=== PATIENT | female | born 1980 | race Caucasian/White ===

== ENCOUNTER → 2017-02-23 | Outpatient (CLI) | payer BC ==
[~2017-02-23] MED LIST: IBUP-103 PO
--- NOTE | 2017-02-23 15:03 | DIAGNOSTIC IMAGING REPORT ---
RIGHT LOWER EXTREMITY VENOUS DOPPLER HISTORY: R UPPER THIGH Injury, large HEMATOMA COMPARISON STUDY: None. FINDINGS: There is normal compressibility, flow, and augmentation within the right lower extremity deep venous system. Increased echogenicity within the subcutaneous fat of the right mid thigh consistent with a soft tissue contusion. No hematoma. There are few partially thrombosed superficial varicosities at this location. IMPRESSION: No DVT within the right lower extremity. Soft tissue contusion within the right mid thigh with a few partially thrombosed superficial varicosities. Electronically signed by: Hill Goetz M.D. 02/23/2017 3:01 PM Dictated Date/Time: 02/23/2017 3:00 PM
== END | disposition home or self-care (01) ==
LOC: C.ULTR 14:28
PROVIDERS: ATTEND Nurse Practitioner
DX: S79.921A Unspecified injury of right thigh, initial encounter (principal); X58.XXXA Exposure to other specified factors, initial encounter

== ENCOUNTER 2023-12-21 16:15 | Inpatient (IN) ==
--- NOTE | 2023-12-21 16:32 | ED Triage Note ---
Date of Service December 21, 2023 Provider in Triage Author: Zayra Naylor History of Present Illness This patient was briefly evaluated while in triage. An abbreviated physical exam was performed. This patient is a 43-year-old Female who presents to the ED for evaluation of pain. She has a history of psoriatic arthritis. Over the past couple weeks she will wake up and have pain all over her joints. She then will get chest pain, SOB, and intermittent fevers. She states that the pain in her joints, chest. and back seems to be getting worse. She has been getting adjustments with minimal improvement. Physical Exam GENERAL: Non-toxic and in no acute distress. HEENT: Pupils equal. No obvious scleral icterus. HEART: Regular rate and rhythm. LUNGS: Clear to auscultation. No accessory muscle use. ABDOMEN: Soft, non-tender to palpation. NEURO: Alert and oriented. No obvious neurological deficits on quick neuro exam. Initial orders for labs and / or imaging were placed and patient was placed in the waiting area until a bed is available. Please see further documentation for the full ED course. MDM / Impression Impression Impression: Hypoxia, Pneumonia Impression: Pneumonia Qualifiers: Pneumonia type: due to unspecified organism Laterality: left Lung location: lower lobe of lung Qualified Code(s): J18.9 - Pneumonia, unspecified organism
[2023-12-21 17:14] LABS: Basophils # (auto) 0.03 K/uL (0.00-0.20); Basophils % (auto) 0.3 %; Eosinophils % (auto) 2.1 %; Hematocrit (blood only) 40.3 % (37.0-47.0); Immature Granulocytes # (auto) 0.06 K/uL (0.01-0.20); Immature Granulocytes % (auto) 0.6 %; Lymphocytes # (auto) 1.37 K/uL (1.20-3.40); Lymphocytes % (auto) 14.1 %; Mean Corpuscular Hemoglobin 27.7 pg (25.0-34.0); Mean Corpuscular Hgb Conc 32.3 g/dL (32.0-36.0); Mean Corpuscular Volume 85.7 fL (80.0-100.0); Mean Platelet Volume 9.2 fL (9.4-12.4); Monocytes # (auto) 0.37 K/uL (0.11-0.59); Monocytes % (auto) 3.8 %; Neutrophils # (auto) 7.72 K/uL (1.40-6.50); Neutrophils % (auto) 79.1 %; Platelet Count 380 K/uL (130-400); RDW Coefficient of Variation 13.3 % (11.5-14.5); RDW Standard Deviation 41.4 fL (36.4-46.3); White Blood Count 9.75 K/ul (4.8-10.8)
[2023-12-21 17:33] LABS: Alanine Aminotransferase 12 U/L (7-52); Albumin Globulin Ratio 1.3 (0.9-2); Albumin Level 4.7 gm/dl (3.4-5.0); Alkaline Phosphatase 91 U/L (34-104); Anion Gap 10 (3-11); Aspartate Aminotransferase 13 U/L (13-39); BUN Creatinine Ratio 18.3 (10-20); Bilirubin,Total 0.7 mg/dl (0.2-1.0); Blood Urea Nitrogen 13 mg/dl (6-23); Calcium 9.4 mg/dl (8.6-10.3); Carbon Dioxide 27 mmol/L (21-32); Chloride 101 mmol/L (98-107); Creatine Kinase 70 U/L (26-192); Est GFR (African American) 119.2 ml/min; Est GFR (Non-African American) 102.9 ml/min; Globulin 3.7 gm/dl (2.5-4.0); Glucose 111 mg/dl (70-99(Fasting)); Lipase 8 U/L (11-82); Magnesium 1.8 mg/dl (1.7-2.4); Sodium 138 mmol/L (136-145); Total Protein 8.4 gm/dl (6.0-8.3)
[2023-12-21 17:37] LABS: Troponin I High Sensitivity 5.2 pg/ml (0-14)
--- NOTE | 2023-12-21 17:46 | XRay Report ---
XR chest 1V portable CLINICAL HISTORY: Chest pain, nonspecific COMPARISON STUDY: Chest radiograph July 15, 2014. FINDINGS: Lung volumes are mildly diminished. Linear left basilar density is present. There may be a trace left pleural effusion. There is no pneumothorax. No right pleural effusion. There is no evidenc e for pulmonary edema. The cardiomediastinal silhouette is stable. IMPRESSION: 1. Left basilar opacity. The configuration favors atelectasis although an infectious process could ap pear similar. Radiographic follow-up to ensure resolution is recommended. 2. Possible trace left pleural effusion. ACT 112: Negative or not required by law. Electronically signed by: Judah Claudio M.D. 12/21/2023 5:45 PM
[2023-12-21 17:47] LABS: Pregnancy Test, Serum Negative (Negative)
[2023-12-21] MEDS: KETOROLAC TROMETHAMINE 15 MG/ML VIAL IV ONE (17:47)
[2023-12-21 17:50] LABS: Appearance Urine Clear (Clear); Bilirubin Urine Negative (Negative); Blood Urine Negative (Negative); Color Urine Yellow; Glucose Urine UA Negative (Negative); Ketones Urine Negative (Negative); Leukocyte Esterase Urine Negative (Negative); Nitrite Urine Negative (Negative); Protein Urine Negative (Negative); Specific Gravity Urine 1.017 (1.000-1.030); Urobilinogen Urine Negative (Negative); pH Urine 5.5 (4.5-7.5)
[2023-12-21] MEDS: SODIUM CHLORIDE 0.9% 500 ML IV STA (17:59)
[2023-12-21 18:26] LABS: Influenza A virus by PCR Negative (Neg); Influenza B virus by PCR Negative (Neg); RSV by PCR Negative (Neg); SARS CoV2 RNA(COVID-19) Ceph NEGATIVE (Negative)
[2023-12-21 20:15] LABS: Partial Thromboplastin Time 28 Seconds (21-31); Prothrombin Time 10.9 Seconds (9.0-12.0)
[2023-12-21] MEDS: MoRPHine SULFATE 4 MG/ML 1 ML CARP\\VIAL IV STA (20:41)
[2023-12-21 21:03] LABS: D Dimer 3270 ug/L FEU (0-500)
[2023-12-21] MEDS: OPTIRAY 320 125ml IV ONE (22:24)
--- NOTE | 2023-12-21 22:55 | CT Scan Report ---
Exam(s): CTA CHEST IV Amt: 119 ml optiray 320 EXAM: CT Angiography Chest With Intravenous Contrast CLINICAL HISTORY: Reason for exam: ro PE. TECHNIQUE: Axial computed tomographic angiography images of the chest with intravenous contrast. Automated exposure control was utilized for the study. A dose lowering technique was utilized adhering to the principles of ALARA. MIP reconstructed images were created and reviewed. COMPARISON: No relevant prior studies available. FINDINGS: Pulmonary arteries: Unremarkable. No pulmonary embolism. Aorta: No acute findings. No thoracic aortic aneurysm. Lungs: Consolidations at the lung bases, concerning for pneumonia. Trace LEFT parapneumonic effusion. Pleural space: Unremarkable. No significant effusion. No pneumothorax. Heart: Unremarkable. No cardiomegaly. No significant pericardial effusion. No evidence of RV dysfunction. Bones/joints: No acute fracture. No dislocation. Soft tissues: Unremarkable. Lymph nodes: Unremarkable. No enlarged lymph nodes. IMPRESSION: Consolidations at the lung bases, concerning for pneumonia. Trace LEFT parapneumonic effusion. Electronically signed by: Remy Bueno MD 12/21/23 22:54 PM
[2023-12-21] MEDS ORDERED: PROMETHAZINE HCL 12.5 MG in SODIUM CHLORIDE 0.9% 50 ML IV PRN (23:47)
--- NOTE | 2023-12-21 23:47 | Emergency Department Note ---
History of Present Illness General Chief complaint: Swelling/Edema to Extremity Stated complaint: SWELLING IN LEGS/FEET/HANDS/ARMS Time Seen by Provider: 12/21/23 20:05 History of Present Illness Provider complaint: Left shoulder and chest pain Maximum Pain Intensity: 9 43-year-old female presents emergency department for left shoulder and left chest pain. Patient states her symptoms began today. She reports she has a history of psoriatic arthritis and that her pain is extreme. She denies any fevers. She states the pain is worse when she takes a deep breath. She does report a cough. Home Medications Medication Instructions Recorded Confirmed Type guselkumab 100 mg/mL subcutaneous 100 mg subcut .COMPLEX #1 mL 07/03/23 12/21/23 Rx syringe (Tremfya) semaglutide 0.25 mg or 0.5 mg (2 1 mg subcut WK 07/03/23 12/21/23 History mg/3 mL) subcutaneous pen injector (Ozempic) colchicine 0.6 mg capsule 0.6 mg PO DAILY 07/05/23 12/21/23 History desonide 0.05 % topical ointment 1 applic topical .COMPLEX 07/05/23 12/21/23 History etodolac 400 mg tablet 400 mg PO BID #60 tabs 12/05/23 12/21/23 Rx Allergies Allergy/AdvReac Type Severity Reaction Status Date / Time Sulfa (Sulfonamide Allergy Unknown Rash Verified 11/16/23 11:50 Antibiotics) Past Med/Surg History Medical History History of COVID-19 10/2021- no hosp, resolved Psoriatic arthritis Obesity, morbid, BMI 40.0-49.9 on ozempic weekly Pseudotumor cerebri monitored Fatty liver Surgical History S/P cholecystectomy S/P tubal ligation History of section X 2 History of wisdom tooth extraction Family History Grandfather (Paternal) Colorectal cancer, Onset Age: 63 Mother Breast cancer Grandmother (Maternal) Breast cancer Aunt Breast cancer multiple maternal aunts Denies family history of Ovarian cancer Uterine cancer Social History Smoking Status: Former smoker Tobacco Type: Cigarettes Second Hand Exposure: Yes ( A CHILD); Do You Dip or Chew Tobacco: No; Hx Alcohol Use: Yes (1-2 per week) Alcohol type: beer Hx Substance Use: No Preferred Language: Latvian Communication Ability: Effective Visual Impairment: No Limitations Clinical Team Manager Required: No Beliefs That Will Affect Care: None Current Living Situation: Spouse Current Living Situation Comment: AND CHILDREN Feels Safe at Home: Yes Assistive Devices: Glasses Physical Exam Vital Signs Vital Signs - 24 hr 12/21/23 16:27 12/21/23 19:21 12/21/23 20:46 Temperature 37 C Temperature Source Temporal Artery Scan Pulse Rate 87 86 Pulse Rate [Finger] 87 Pulse Rate from SpO2 Sensor Respiratory Rate 18 18 18 Respiratory Effort / Characteristics Non-Labored Spontaneous Non-Labored Respiratory Depth Normal Normal Respiratory Pattern Regular Blood Pressure 172/84 H Blood Pressure [Right Arm] 127/82 Blood Pressure Mean 113 Blood Pressure Mean [Right Arm] 97 Pulse Oximetry 97 96 100 Oxygen Delivery Method Room Air Room Air Room Air Oxygen Flow Rate Sepsis Recent Fever Within 48 Hours Yes Sepsis New/Unexplained Change in Mental Status N/A Sepsis Action Taken by Nursing No Action Required 12/21/23 20:51 12/21/23 21:35 12/21/23 21:38 Temperature Temperature Source Pulse Rate Pulse Rate [Finger] Pulse Rate from SpO2 Sensor Respiratory Rate 16 Respiratory Effort / Characteristics Non-Labored Spontaneous Respiratory Depth Normal Respiratory Pattern Blood Pressure Blood Pressure [Right Arm] 109/78 Blood Pressure Mean Blood Pressure Mean [Right Arm] 88 Pulse Oximetry 89 L 97 Oxygen Delivery Method Room Air Nasal Cannula Oxygen Flow Rate 2 Sepsis Recent Fever Within 48 Hours Sepsis New/Unexplained Change in Mental Status Sepsis Action Taken by Nursing 12/21/23 22:37 12/21/23 23:00 Temperature Temperature Source Pulse Rate 78 77 Pulse Rate [Finger] Pulse Rate from SpO2 Sensor 78 78 Respiratory Rate 23 24 Respiratory Effort / Characteristics Respiratory Depth Respiratory Pattern Blood Pressure 121/82 146/79 H Blood Pressure [Right Arm] Blood Pressure Mean 95 101 Blood Pressure Mean [Right Arm] Pulse Oximetry 95 94 Oxygen Delivery Method Oxygen Flow Rate Sepsis Recent Fever Within 48 Hours Sepsis New/Unexplained Change in Mental Status Sepsis Action Taken by Nursing Physical Exam GENERAL: oriented to person, place, and time. appears well-developed and well- nourished. HENT: Exam performed. - Head: Normocephalic and atraumatic. EYES: Conjunctivae and EOM are normal. Right eye exhibits no discharge. Left eye exhibits no discharge. No scleral icterus. NECK: Normal range of motion. Neck supple. No JVD present. CV: Normal rate, regular rhythm, normal heart sounds and intact distal pulses. There is no peripheral edema. Palpable radial pulses bue. PULM/CHEST: Effort normal and breath sounds normal. No respiratory distress. No stridor. no wheezes. no rales. ABD: The abdomen is soft. There is no tenderness. NEURO: Motor and sensation grossly intact. SKIN: Skin is warm and dry. He is not diaphoretic. PSYCH: normal mood and affect. Behavior is normal. Judgment and thought content normal. Course Course 2004: The patient was evaluated in room C8. A complete history and physical exam was performed Cardiac monitoring: An order was placed for continuous cardiac monitoring. The monitor shows a rate of 80 with sinus rhythm interpreted by me 2106: Vital signs stable. D-dimer elevated. CT of the chest ordered. 2140: Nursing informed me that the patient is becoming hypoxic on room air. Supplemental oxygen was applied via nasal cannula which improved the patient oxygen saturation. 2315: Vital signs stable on supplemental oxygen via nasal cannula. Labs are unremarkable with the exception of the elevated D-dimer. Imaging does show left-sided pneumonia. Patient will be treated with antibiotics for community- acquired pneumonia [facility] aware of the patient and will evaluate the patient for admission. Administered Medications Discontinued Medications Sodium Chloride (Nss) 500 mls @ 999 mls/hr IV .Q31M STA Stop: 12/21/23 17:02 Last Admin: 12/21/23 17:59 Dose: Not Given Documented By: NURIS Ioversol (Optiray 320 125ml) 119 ml IV ONCE ONE Stop: 12/21/23 22:25 Last Admin: 12/21/23 22:24 Dose: 119 ml Documented By: CANDELARIA Ketorolac Tromethamine (Ketorolac Tromethamine 15 Mg/Ml Vial) 10 mg IV NOW ONE Stop: 12/21/23 16:33 Last Admin: 12/21/23 17:47 Dose: 10 mg Documented By: CORINNE Morphine Sulfate (Morphine Sulfate 4 Mg/Ml 1 Ml Carp\Vial) 4 mg IV NOW STA Stop: 12/21/23 20:29 Last Admin: 12/21/23 20:41 Dose: 4 mg Documented By: CYNTHIA Critical Care Time Critical Care Time: Yes Total Critical Care Time: 45 I have personally spent greater than 45 minutes of critical care time in the direct management of this patient. This includes bedside care, interpretation of diagnostic studies, and testing, discussion with consultants, patient, and family members, and other required patient management activities. This 45 minutes is in excess of all separately billable procedures. Medical Decision Making Laboratory Data Attestation: I reviewed the patient's lab results. 12/21/23 16:46 12/21/23 16:46 Lab Results 12/21/23 12/21/23 12/21/23 Range/Units 16:46 16:57 19:50 WBC 9.75 (4.8-10.8) K/ul RBC 4.70 (4.20-5.40) M/uL Hgb 13.0 (12.0-16.0) g/dl Hct 40.3 (37.0-47.0) % MCV 85.7 (80.0-100.0) fL MCH 27.7 (25.0-34.0) pg MCHC 32.3 (32.0-36.0) g/dL RDW Std Deviation 41.4 (36.4-46.3) fL RDW Coeff of Tangela 13.3 (11.5-14.5) % Plt Count 380 (130-400) K/uL MPV 9.2 L (9.4-12.4) fL Immature Gran % (Auto) 0.6 % Neut % (Auto) 79.1 % Lymph % (Auto) 14.1 % [place] % (Auto) 3.8 % Eos % (Auto) 2.1 % Baso % (Auto) 0.3 % Neut # (Auto) 7.72 H (1.40-6.50) K/uL Lymph # (Auto) 1.37 (1.20-3.40) K/uL [place] # (Auto) 0.37 (0.11-0.59) K/uL Eos # (Auto) 0.20 (0.00-0.50) K/uL Baso # (Auto) 0.03 (0.00-0.20) K/uL Immature Gran # (Auto) 0.06 (0.01-0.20) K/uL PT Cancelled 10.9 INR Cancelled 1.0 APTT Cancelled 28 PTT Ratio Cancelled 1.0 D-Dimer Cancelled 3270 H* Sodium 138 (136-145) mmol/L Potassium 4.0 (3.5-5.1) mmol/L Chloride 101 (98-107) mmol/L Carbon Dioxide 27 (21-32) mmol/L Anion Gap 10 (3-11) BUN 13 (6-23) mg/dl Creatinine 0.71 (0.6-1.2) mg/dl Est Cr Clr Drug Dosing Not Reportable Est GFR ( Amer) 119.2 ml/min Est GFR (Non-Af Amer) 102.9 ml/min BUN/Creatinine Ratio 18.3 (10-20) Glucose 111 H (70-99(Fasting)) mg/dl Calcium 9.4 (8.6-10.3) mg/dl Magnesium 1.8 (1.7-2.4) mg/dl Total Bilirubin 0.7 (0.2-1.0) mg/dl AST 13 (13-39) U/L ALT 12 (7-52) U/L Alkaline Phosphatase 91 (34-104) U/L Total Creatine Kinase 70 (26-192) U/L Troponin I High Sens 5.2 (0-14) pg/ml Total Protein 8.4 H (6.0-8.3) gm/dl Albumin 4.7 (3.4-5.0) gm/dl Globulin 3.7 (2.5-4.0) gm/dl Albumin/Globulin Ratio 1.3 (0.9-2) Lipase 8 L (11-82) U/L HCG, Qual Negative (Negative) Urine Color Urine Appearance (Clear) Urine pH (4.5-7.5) Ur Specific Schneider (1.000-1.030) Urine Protein (Negative) Urine Glucose (UA) (Negative) Urine Ketones (Negative) Urine Blood (Negative) Urine Nitrite (Negative) Urine Bilirubin (Negative) Urine Urobilinogen (Negative) Ur Leukocyte Esterase (Negative) Anaplasma Smear See Comment Babesia Smear See Comment Lyme Disease Screen Negative (Negative) SARS-CoV-2 (PCR) NEGATIVE (Negative) Influenza Type A (PCR) Negative (Neg) Influenza Type B (PCR) Negative (Neg) RSV (RT-PCR) Negative (Neg) 12/21/23 Range/Units Unknown WBC (4.8-10.8) K/ul RBC (4.20-5.40) M/uL Hgb (12.0-16.0) g/dl Hct (37.0-47.0) % MCV (80.0-100.0) fL MCH (25.0-34.0) pg MCHC (32.0-36.0) g/dL RDW Std Deviation (36.4-46.3) fL RDW Coeff of Tangela (11.5-14.5) % Plt Count (130-400) K/uL MPV (9.4-12.4) fL Immature Gran % (Auto) % Neut % (Auto) % Lymph % (Auto) % [place] % (Auto) % Eos % (Auto) % Baso % (Auto) % Neut # (Auto) (1.40-6.50) K/uL Lymph # (Auto) (1.20-3.40) K/uL [place] # (Auto) (0.11-0.59) K/uL Eos # (Auto) (0.00-0.50) K/uL Baso # (Auto) (0.00-0.20) K/uL Immature Gran # (Auto) (0.01-0.20) K/uL PT INR APTT PTT Ratio D-Dimer Sodium (136-145) mmol/L Potassium (3.5-5.1) mmol/L Chloride (98-107) mmol/L Carbon Dioxide (21-32) mmol/L Anion Gap (3-11) BUN (6-23) mg/dl Creatinine (0.6-1.2) mg/dl Est Cr Clr Drug Dosing Est GFR ( Amer) ml/min Est GFR (Non-Af Amer) ml/min BUN/Creatinine Ratio (10-20) Glucose (70-99(Fasting)) mg/dl Calcium (8.6-10.3) mg/dl Magnesium (1.7-2.4) mg/dl Total Bilirubin (0.2-1.0) mg/dl AST (13-39) U/L ALT (7-52) U/L Alkaline Phosphatase (34-104) U/L Total Creatine Kinase (26-192) U/L Troponin I High Sens (0-14) pg/ml Total Protein (6.0-8.3) gm/dl Albumin (3.4-5.0) gm/dl Globulin (2.5-4.0) gm/dl Albumin/Globulin Ratio (0.9-2) Lipase (11-82) U/L HCG, Qual (Negative) Urine Color Yellow Urine Appearance Clear (Clear) Urine pH 5.5 (4.5-7.5) Ur Specific Schneider 1.017 (1.000-1.030) Urine Protein Negative (Negative) Urine Glucose (UA) Negative (Negative) Urine Ketones Negative (Negative) Urine Blood Negative (Negative) Urine Nitrite Negative (Negative) Urine Bilirubin Negative (Negative) Urine Urobilinogen Negative (Negative) Ur Leukocyte Esterase Negative (Negative) Anaplasma Smear Babesia Smear Lyme Disease Screen (Negative) SARS-CoV-2 (PCR) (Negative) Influenza Type A (PCR) (Neg) Influenza Type B (PCR) (Neg) RSV (RT-PCR) (Neg) Imaging Data Attestation: I personally reviewed and interpreted this imaging study as follows: My Impression: Chest x-ray: Left lower lobe infiltrate Radiologist's Impression: Chest X-Ray 12/21/23 16:32 XR chest 1V portable CLINICAL HISTORY: Chest pain, nonspecific COMPARISON STUDY: Chest radiograph July 15, 2014. FINDINGS: Lung volumes are mildly diminished. Linear left basilar density is present. There may be a trace left pleural effusion. There is no pneumothorax. No right pleural effusion. There is no evidence for pulmonary edema. The cardiomediastinal silhouette is stable. IMPRESSION: 1. Left basilar opacity. The configuration favors atelectasis although an infectious process could appear similar. Radiographic follow-up to ensure resolution is recommended. 2. Possible trace left pleural effusion. ACT 112: Negative or not required by law. Electronically signed by: Judah Caludio M.D. 12/21/2023 5:45 PM Chest CTA 12/21/23 21:06 Exam(s): CTA CHEST IV Amt: 119 ml optiray 320 EXAM: CT Angiography Chest With Intravenous Contrast CLINICAL HISTORY: Reason for exam: ro PE. TECHNIQUE: Axial computed tomographic angiography images of the chest with intravenous contrast. Automated exposure control was utilized for the study. A dose lowering technique was utilized adhering to the principles of ALARA. MIP reconstructed images were created and reviewed. COMPARISON: No relevant prior studies available. FINDINGS: Pulmonary arteries: Unremarkable. No pulmonary embolism. Aorta: No acute findings. No thoracic aortic aneurysm. Lungs: Consolidations at the lung bases, concerning for pneumonia. Trace LEFT parapneumonic effusion. Pleural space: Unremarkable. No significant effusion. No pneumothorax. Heart: Unremarkable. No cardiomegaly. No significant pericardial effusion. No evidence of RV dysfunction. Bones/joints: No acute fracture. No dislocation. Soft tissues: Unremarkable. Lymph nodes: Unremarkable. No enlarged lymph nodes. IMPRESSION: Consolidations at the lung bases, concerning for pneumonia. Trace LEFT parapneumonic effusion. Electronically signed by: Remy Bueno MD 12/21/23 22:54 PM ECG Data Attestation: I personally reviewed and interpreted this ECG as follows: Rate (beats per minute): 78 Rhythm: + normal sinus ECG Intervals/blocks: + Normal MD and + Normal QT-c ECG ST segments: + Normal ST segments Additional Comments: QRS 78 MDM Narrative 2005: The patient was evaluated in room C8. A complete history and physical exam was performed Cardiac monitoring: An order was placed for continuous cardiac monitoring. The monitor shows a rate of 80 with sinus rhythm interpreted by me 2106: Vital signs stable. D-dimer elevated. CT of the chest ordered. 2140: Nursing informed me that the patient is becoming hypoxic on room air. Supplemental oxygen was applied via nasal cannula which improved the patient oxygen saturation. 2315: Vital signs stable on supplemental oxygen via nasal cannula. Labs are unremarkable with the exception of the elevated D-dimer. Imaging does show left-sided pneumonia. Patient will be treated with antibiotics for community- acquired pneumonia [facility] aware of the patient and will evaluate the patient for admission. Impression & Plan Hypoxia, Pneumonia Discharge Plan Visit Data Chief Complaint: Swelling/Edema to Extremity Stated Complaint: SWELLING IN LEGS/FEET/HANDS/ARMS ED Provider: Felix Lund Discharge Problem: Hypoxia, Pneumonia Patient Disposition: Admitted As Inpatient Forms Stand Alone Forms: [facility] Prescriptions Prescriptions: No Action etodolac 400 mg tablet 400 mg PO BID Qty: 60 2RF colchicine 0.6 mg capsule 0.6 mg PO DAILY desonide 0.05 % ointment 1 applic topical .COMPLEX Rx Instructions: 1 applic topical to areas of face twice daily x 1 week, then once daily x 1 week as directed for flaring. Ozempic 0.25 mg or 0.5 mg (2 mg/3 mL) pen injector 1 mg subcut WK Patient Comments: monday Rx Instructions: Patient states she takes this on Fridays Tremfya 100 mg/mL syringe 100 mg subcut .COMPLEX Qty: 1 2RF Rx Instructions: 100 mg subcutaneously every 8 weeks for maintenance as directed.; Last Dose: November/2023 Referrals Referrals: Usama Block MD [Primary Care Provider] - Discharge Problem: Pneumonia Qualifiers: Pneumonia type: due to unspecified organism Laterality: left Lung location: l ower lobe of lung Qualified Code(s): J18.9 - Pneumonia, unspecified organism
--- NOTE | 2023-12-21 23:51 | History & Physical Report ---
Date of Service December 21, 2023 Assessment & Plan (1) Acute hypoxemic respiratory failure: Plan: Secondary to complicated pneumonia Atypical presentation given predominance of constitutional symptoms Immunocompromised patient given history of psoriatic arthritis psoriatic arthritis on Tremfya hx pseudotumor cerebri, stable off maintenance medications Hyperglycemia rule out DM past tobacco abuse. Medical telemetry Supplemental O2 Baseline ABG CS, Ceftriaxone and azithromycin Pulmonology consult eval improvement Re: Complicated pneumonia Check hemoglobin A1c DVT prophylaxis per Lovenox subcu Full code Text document was generated using [employer] voice recognition software. It may contain grammatical or spelling errors. Kindly contact undersigned for clarification of any documentation item in question. History of Present Illness Chief Complaint: Achy, shortness of breath Primary Care Provider: Usama Block MD History obtained from patient, family, and records. Medical history significant for psoriatic arthritis on Tremfya, pseudotumor cerebri, obesity on Ozempic, past tobacco abuse. 2 weeks history of generalized weakness and achiness. No cough symptoms. Shortness of breath with achy chest pain. Not sure about sick contacts. Fluid retention which patient attributes to psoriatic arthritis. Denies headache symptoms. No recent COVID-19 vaccination. Lowest O2 sats of 80s documented at the ER. Ceftriaxone and azithromycin administered at the ER. 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 Allergies Allergy/AdvReac Type Severity Reaction Status Date / Time Sulfa (Sulfonamide Allergy Unknown Rash Verified 11/16/23 11:50 Antibiotics) Home Medications Medication Instructions Recorded Confirmed Type guselkumab 100 mg/mL subcutaneous 100 mg subcut .COMPLEX #1 mL 07/03/23 12/21/23 Rx syringe (Tremfya) semaglutide 0.25 mg or 0.5 mg (2 1 mg subcut WK 07/03/23 12/21/23 History mg/3 mL) subcutaneous pen injector (Ozempic) colchicine 0.6 mg capsule 0.6 mg PO DAILY 07/05/23 12/21/23 History desonide 0.05 % topical ointment 1 applic topical .COMPLEX 07/05/23 12/21/23 History etodolac 400 mg tablet 400 mg PO BID #60 tabs 12/05/23 12/21/23 Rx Past Med/Surg History Medical History History of COVID-19 10/2021- no hosp, resolved Psoriatic arthritis Obesity, morbid, BMI 40.0-49.9 on ozempic weekly Pseudotumor cerebri monitored Fatty liver Surgical History S/P cholecystectomy S/P tubal ligation History of section X 2 History of wisdom tooth extraction Family History Grandfather (Paternal) Colorectal cancer, Onset Age: 63 Mother Breast cancer Grandmother (Maternal) Breast cancer Aunt Breast cancer multiple maternal aunts Denies family history of Ovarian cancer Uterine cancer Social History Smoking Status: Former smoker Tobacco Type: Cigarettes Second Hand Exposure: Yes ( A CHILD); Do You Dip or Chew Tobacco: No; Hx Alcohol Use: Yes (1-2 per week) Alcohol type: beer Hx Substance Use: No Preferred Language: [place] Communication Ability: Effective Visual Impairment: No Limitations 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 Beliefs That Will Affect Care: None Current Living Situation: Spouse Current Living Situation Comment: AND CHILDREN Feels Safe at Home: Yes Assistive Devices: Glasses Review of Systems Review of Systems: As per HPI, all other systems reviewed and negative Physical Exam Physical Exam: GENERAL: Slightly uncomfortable, ill-appearing, morbidly obese, looks older than stated age, no respiratory distress SKIN: Normal color, warm HEENT: [place] palpebral conjunctivae, no ptosis, dry buccal mucosa, nasal cannula in place NECK : Supple, short neck, no tenderness CHEST : Decreased breath sounds, no tenderness HEART : RRR, no obvious murmurs ABDOMEN: Some distention, nontender EXTREMITIES : Minimal LE swelling, no LE tenderness, no other conspicuous deformities noted NEUROLOGIC : Coherent, no facial asymmetry, no other gross focality Results & Data Results & Data Vital Signs (Past 12 Hours) Vital Signs Temp Pulse Pulse Resp BP BP Pulse Ox 12/21/23 23:00 77 24 146/79 H 94 12/21/23 22:37 78 23 121/82 95 12/21/23 21:38 97 12/21/23 21:35 16 89 L 12/21/23 20:51 109/78 12/21/23 20:46 86 18 100 12/21/23 19:21 87 18 127/82 96 12/21/23 16:27 37 C 87 18 172/84 H 97 O2 Del Method O2 Flow Rate 12/21/23 23:00 12/21/23 22:37 12/21/23 21:38 Nasal Cannula 2 12/21/23 21:35 Room Air 12/21/23 20:51 12/21/23 20:46 Room Air 12/21/23 19:21 Room Air 12/21/23 16:27 Room Air Laboratory Results Laboratory Results WBC 9.75 K/ul (4.8-10.8) 12/21/23 16:46 RBC 4.70 M/uL (4.20-5.40) 12/21/23 16:46 Hgb 13.0 g/dl (12.0-16.0) 12/21/23 16:46 Hct 40.3 % (37.0-47.0) 12/21/23 16:46 MCV 85.7 fL (80.0-100.0) 12/21/23 16:46 MCH 27.7 pg (25.0-34.0) 12/21/23 16:46 MCHC 32.3 g/dL (32.0-36.0) 12/21/23 16:46 RDW Std Deviation 41.4 fL (36.4-46.3) 12/21/23 16:46 RDW Coeff of [place]ela 13.3 % (11.5-14.5) 12/21/23 16:46 Plt Count 380 K/uL (130-400) 12/21/23 16:46 MPV 9.2 fL (9.4-12.4) L 12/21/23 16:46 Immature Gran % (Auto) 0.6 % 12/21/23 16:46 Neut % (Auto) 79.1 % 12/21/23 16:46 Lymph % (Auto) 14.1 % 12/21/23 16:46 [place] % (Auto) 3.8 % 12/21/23 16:46 Eos % (Auto) 2.1 % 12/21/23 16:46 Baso % (Auto) 0.3 % 12/21/23 16:46 Neut # (Auto) 7.72 K/uL (1.40-6.50) H 12/21/23 16:46 Lymph # (Auto) 1.37 K/uL (1.20-3.40) 12/21/23 16:46 [place] # (Auto) 0.37 K/uL (0.11-0.59) 12/21/23 16:46 Eos # (Auto) 0.20 K/uL (0.00-0.50) 12/21/23 16:46 Baso # (Auto) 0.03 K/uL (0.00-0.20) 12/21/23 16:46 Immature Gran # (Auto) 0.06 K/uL (0.01-0.20) 12/21/23 16:46 PT 10.9 Seconds (9.0-12.0) 12/21/23 19:50 INR 1.0 (0.9-1.1) 12/21/23 19:50 APTT 28 Seconds (21-31) 12/21/23 19:50 PTT Ratio 1.0 12/21/23 19:50 D-Dimer 3270 ug/L FEU (0-500) H* 12/21/23 19:50 Sodium 138 mmol/L (136-145) 12/21/23 16:46 Potassium 4.0 mmol/L (3.5-5.1) 12/21/23 16:46 Chloride 101 mmol/L (98-107) 12/21/23 16:46 Carbon Dioxide 27 mmol/L (21-32) 12/21/23 16:46 Anion Gap 10 (3-11) 12/21/23 16:46 BUN 13 mg/dl (6-23) 12/21/23 16:46 Creatinine 0.71 mg/dl (0.6-1.2) 12/21/23 16:46 Est Cr Clr Drug Dosing Not Reportable 12/21/23 16:46 Est GFR ( Amer) 119.2 ml/min 12/21/23 16:46 Est GFR (Non-Af Amer) 102.9 ml/min 12/21/23 16:46 BUN/Creatinine Ratio 18.3 (10-20) 12/21/23 16:46 Glucose 111 mg/dl (70-99(Fasting)) H 12/21/23 16:46 Calcium 9.4 mg/dl (8.6-10.3) 12/21/23 16:46 Magnesium 1.8 mg/dl (1.7-2.4) 12/21/23 16:46 Total Bilirubin 0.7 mg/dl (0.2-1.0) 12/21/23 16:46 AST 13 U/L (13-39) 12/21/23 16:46 ALT 12 U/L (7-52) 12/21/23 16:46 Alkaline Phosphatase 91 U/L (34-104) 12/21/23 16:46 Total Creatine Kinase 70 U/L (26-192) 12/21/23 16:46 Troponin I High Sens 5.2 pg/ml (0-14) 12/21/23 16:46 Total Protein 8.4 gm/dl (6.0-8.3) H 12/21/23 16:46 Albumin 4.7 gm/dl (3.4-5.0) 12/21/23 16:46 Globulin 3.7 gm/dl (2.5-4.0) 12/21/23 16:46 Albumin/Globulin Ratio 1.3 (0.9-2) 12/21/23 16:46 Lipase 8 U/L (11-82) L 12/21/23 16:46 HCG, Qual Negative (Negative) 12/21/23 16:46 Urine Color Yellow 12/21/23 Unknown Urine Appearance Clear (Clear) 12/21/23 Unknown Urine pH 5.5 (4.5-7.5) 12/21/23 Unknown Ur Specific [place] 1.017 (1.000-1.030) 12/21/23 Unknown Urine Protein Negative (Negative) 12/21/23 Unknown Urine Glucose (UA) Negative (Negative) 12/21/23 Unknown Urine Ketones Negative (Negative) 12/21/23 Unknown Urine Blood Negative (Negative) 12/21/23 Unknown Urine Nitrite Negative (Negative) 12/21/23 Unknown Urine Bilirubin Negative (Negative) 12/21/23 Unknown Urine Urobilinogen Negative (Negative) 12/21/23 Unknown Ur Leukocyte Esterase Negative (Negative) 12/21/23 Unknown Anaplasma Smear See Comment 12/21/23 16:46 Babesia Smear See Comment 12/21/23 16:46 Lyme Disease Screen Negative (Negative) 12/21/23 16:46 SARS-CoV-2 (PCR) NEGATIVE (Negative) 12/21/23 16:57 Influenza Type A (PCR) Negative (Neg) 12/21/23 16:57 Influenza Type B (PCR) Negative (Neg) 12/21/23 16:57 RSV (RT-PCR) Negative (Neg) 12/21/23 16:57 Impressions Chest X-Ray 12/21/23 16:32 XR chest 1V portable CLINICAL HISTORY: Chest pain, nonspecific COMPARISON STUDY: Chest radiograph July 15, 2014. FINDINGS: Lung volumes are mildly diminished. Linear left basilar density is present. There may be a trace left pleural effusion. There is no pneumothorax. No right pleural effusion. There is no evidence for pulmonary edema. The cardiomediastinal silhouette is stable. IMPRESSION: 1. Left basilar opacity. The configuration favors atelectasis although an infectious process could appear similar. Radiographic follow-up to ensure resolution is recommended. 2. Possible trace left pleural effusion. ACT 112: Negative or not required by law. Electronically signed by: Judah Claudio M.D. 12/21/2023 5:45 PM Chest CTA 12/21/23 21:06 Exam(s): CTA CHEST IV Amt: 119 ml optiray 320 EXAM: CT Angiography Chest With Intravenous Contrast CLINICAL HISTORY: Reason for exam: ro PE. TECHNIQUE: Axial computed tomographic angiography images of the chest with intravenous contrast. Automated exposure control was utilized for the study. A dose lowering technique was utilized adhering to the principles of ALARA. MIP reconstructed images were created and reviewed. COMPARISON: No relevant prior studies available. FINDINGS: Pulmonary arteries: Unremarkable. No pulmonary embolism. Aorta: No acute findings. No thoracic aortic aneurysm. Lungs: Consolidations at the lung bases, concerning for pneumonia. Trace LEFT parapneumonic effusion. Pleural space: Unremarkable. No significant effusion. No pneumothorax. Heart: Unremarkable. No cardiomegaly. No significant pericardial effusion. No evidence of RV dysfunction. Bones/joints: No acute fracture. No dislocation. Soft tissues: Unremarkable. Lymph nodes: Unremarkable. No enlarged lymph nodes. IMPRESSION: Consolidations at the lung bases, concerning for pneumonia. Trace LEFT parapneumonic effusion. Electronically signed by: Remy Bueno MD 12/21/23 22:54 PM Diagnostic Findings EKG as per my interpretation : Rate 80, NSR, normal axis, nonspecific T wave abnormalities Code Status & VTE Plan VTE Prophylaxis Plan VTE Prophylaxis will be ordered: Yes
[2023-12-22] MEDS: AZITHROMYCIN 250 MG TAB PO ONE (00:10)
[2023-12-22] MEDS: cefTRIAXone SODIUM 2,000 MG/50 ML BAG IV STA (00:10)
[2023-12-22] MEDS: ALBUT/IPRATROP 3MG/0.5MG NEB 3 ML VIAL NEB STA (00:10)
[2023-12-22 00:41] LABS: Base Excess ABG -0.1 mEq/L (-9-1.8); HCO3 ABG 24 mmol/L (19-24); Oxygen Saturation ABG 96.8 % (90-95); PCO2 ABG 36 mmHg (35-46); PO2 ABG 73 mmHg (80-95); pH ABG 7.43 (7.35-7.45)
[2023-12-22] MEDS: MAGNESIUM SULFATE / D5W 1 GM/100 ML BAG IV STA (00:45)
[2023-12-22 00:48] LABS: Allen Test Pos (Pos)
[2023-12-22] MEDS: oxyCODONE HCL IR 5 MG TAB (IMMEDIATE RELEASE) PO PRN ×2 (01:22→12:27)
[2023-12-22] MEDS: KETOROLAC TROMETHAMINE 15 MG/ML VIAL IV ONE (04:42)
[2023-12-22] MEDS: LIDOCAINE 5% 1 PATCH TD SCH (04:42)
--- OUTSIDE RECORDS SUMMARY | 2023-12-22 06:30 | External Medical Summary | Summary of Care ---
Author Name Unknown Organization [facility] Address [address] [place] [address] Phone [phone] Care Team Providers Care Automatic Presser Name Role Phone Usama Block MD Primary Care Provider + Encounter Details Date Type Department Care Team (Late st Contact Info) Description 12/21/2023 8:00 AM EST Nurse Only Ancillary [facility] [address] [place] [address] Nurse, Int Med [address] [place] [address] Arrived Allergies Active Allergy Reactions Criticality Noted Date Comments Sulfa Antibiotics 01/17/2003 leg cramps,rash as a child documented as of this encounter (statuses as of 12/21/2023) Medications Medication Sig Dispensed Refills Start Date End Date Status PROBIOTIC PO CAPS 1 tablet daily 0 Act abdirashid Loratadine 10 MG Oral Tablet Take 1 Tablet by mouth in the morning. 30 Tab 11 04/14/2020 Active Tremfya 100 MG/ML Subcutaneous Solution Pen-injector every 8 weeks. Last shot was 11/18/22. 0 04/19/2022 Active Mometasone Furoate 50 MCG/ACT Nasal SuspensionIndication s:Acute non-recurrent maxillary sinusitis Administer 2 Sprays into nostril in the morning. 18 g 0 10/29/2022 Active Meloxicam 7.5 MG Oral Tablet (Mobic)Indications:P olyarthralgia Take 1 Tablet by mouth daily as needed for Pain, Severe. With food 90 Tablet 3 03/14/2023 Active Allopurinol 100 MG Oral Tablet (Zyloprim)Indication s:Elevated uric acid in blood Take 1 Tablet by mouth in the morning. 30 Tablet 11 06/21/2023 Active Colchicine 0.6 MG Oral TabletIndications:El evated uric acid in blood Take 1 Tablet by mouth in the morning. 30 Tablet 5 06/21/2023 Active Ozempic (1 MG/DOSE) 4 MG/3ML Subcutaneous Solution Pen-injector (Semaglutide (1 MG/DOSE)) Inject 1 mg under the skin once a week. 9 mL 0 09/05/2023 Active documented as of this encounter (statuses as of 12/21/2023) Active Problems Problem Noted Date Diagnosed Date Plaque psoriasis 03/14/2023 Obesity, morbid (more than 1 00 lbs over ideal weight or BMI > 40) 03/19/2019 Enlarged adenoids 03/19/2019 Deviated nasal septum 02/04/2019 Hypertrophy of both inferior nasal turbinates Pseudotumor cerebri Overview: followed by Dr Bernabe Papilledema Overview: followed by Dr Frantz Lema documented as of this encounter (statuses as of 12/21/2023) Resolved Problems Problem Noted Date Diagnosed Date Resolved Date Adenoidal hypertrophy 02/04/20192018 Acute serous otitis media of right ear 02/04/2019 03/19/2019 Acute sinusitis 02/04/2019 03/19/2019 Body mass index (BMI) of 45. 0 to 49.9 in adult 08/14/2017 03/19/2019 Overview: Per Obesity protocol #1 Carrier or suspected carrier of group B Streptococcus 12/31/2009 01/18/2010 Overview: + GBS -- tx in labor ADVANCE DIRECTIVE INFORMATION 06/30/2009 03/19/2019 Overview: No, Advance Directive brochure offered , patient declined. Supervision of other high-risk 06/15/2009 01/18/2010 Overview: M consult ordered re: h/o pseudotumor cerebri and papilledema for further recommendations- M recommendations:Repeat evaluation in 7-8 weeks for second trimester screening sonography and recommend quad serum screening between 15-22 wks gestation (pt declines). Patient received flu vaccine. 08/13/2009 Julia Brown RN Patient received H1N1 vaccine. 09/11/2009 Dayanara Mancilla RN ICD-10 update of inactive term Normal , first 12/09/200301/2009 NONE 11/11/2003 05/29/2009 Encounter for supervision of other normal 11/11/2003 06/15/2009 Overview: ICD-10 update of inactive term documented as of this encounter (statuses as of 12/21/2023) Immunizations Name Administration Dates Next Due H1N1 2008 Influenza, IM 09/11/2009 Hepatitis B, 20+ yrs 12/21/2023,07/21/2023,06/20 Season Influenza, Cell Cultu re, 18+ Yrs, With Preserv (Flucelvax) 08/16/2018 Seasonal Influenza, PF, 6 M & above, IM , (FluLaval or Fluzone) 08/23/2023,10/27/2020,09/19/2019,2016 Seasonal Influenza, Quadriva lent, No Preserve, IM 08/17/2018 Seasonal Influenza, Split, I IV3, With Preserve, Inj 08/13/2009 TD, Preservative Free 01/28/2019 TDAP (age 11 and older)(Adacel) 03/11/2008 documented as of this encounter Social History Tobacco Use Types Packs/Day Years Used Date Smoking Tobacco: Former Cigarettes 0.5 8 Q uit: 07/14/2014 Smokeless Tobacco: Never Alcohol Use Standard Drinks/Week Comments Yes 0 (1 standard drink = 0.6 oz pur e alcohol) Very rare PHQ-2 Answer Date Recorded PHQ Adult Total Score 0 03/14/2023 Hunger Vital Sign Answer Date Recorded Within the past 12 months, y ou worried that your food would run out before you got the money to buy more. Never true 03/14/20 23 Within the past 12 months, t he food you bought just didn't last and you didn't have money to get more. Never true 03/14/2023 Sex and Gender Information Value Date Recorded Sex Assigned at Female 03/19/2019 8:05 AM EDT Gender Identity Female 03/19/2019 8:05 AM EDT Sexual Orientation Straight 03/19/2019 8: 05 AM EDT Job Start Date Occupation Industry Not on file Not on file Not on file documented as of this encounter Progress Notes * Masoud Newby LPN - 12/21/2023 8:00 AM EST Pre-Administration Time Out Procedure Performed: Yes Patient Identified (Ask Name/Date of ): Yes Does the patient have a fever greater than 101 degrees today? No Patient allergic to latex? No Has the patient ever fainted after receiving an injection? No VFC Stock: No Immunization(s) verified: Yes, Immunization Name: Hep B, VIS Sheet(s) given: Yes Verified Side and Site: Yes Verified Shot(s) with Parent(s)/Patient: Yes documented in this encounter Plan of Treatment Health Maintenance Due Date Last Done Comments COVID-19 Vaccine (#1) 05/10/1979 HPV/Co-Test 2008 Cervical Cancer Screening 05/22/2022 Pap Smear 05/22/2022 05/22/2019, 01/2016, 07/10/2014, Additional history exists Cologuard 2023 Colonoscopy 2023 Colorectal Cancer Screening 2023 Fecal Occult Blood Test 2023 Sigmoidoscopy 2023 Depression Screening 03/14/2024 03/14/2023 Mammogram 09/05/2024 09/05/2023, 08/14, 04/16/2020, Additional history exists Diabetes Screening 06/12/2026 06/12/2023, 1 12/07/2019, 06/06/2020, Additional history exists Lipid Panel 06/12/2028 06/12/2023 DTaP,Tdap,and Td Vaccines (3 - Td or Tdap) 01/28/2029 01/28/2019, 03/11/2008 Influenza Vaccine (FLU shot) Completed 09/2023, 10/27/2020, 09/19/2019, Additional history exists Hepatitis B Completed 12/21/2023, 06/2023, 06/20/2023 GARDASIL-HPV IMMUNIZATION SERIES Aged Out No longer eligible based on patient's age to complete this topic MENINGOCOCCAL (MENACTRA/MENVEO) Aged Out No longer eligible based on patient's age to complete this topic Pneumococcal Vaccine: Pediatrics (0 to 5 Years) and At-Risk Patients (6 to 64 Years) Aged Out No longer eligible based on patient's age to complete this topic documented as of this encounter Medical Devices Not on filedocumented as of this encounter Visit Diagnoses Diagnosis Need for hepatitis B vaccination- Primary Need for prophylactic vaccination and inoculation against viral hepatitis documented in this encounter Care Teams Automatic Presser Relationship Specialty Start Date End Date Usama Block MD [address] [place] [address] PCP - General Internal Medicine 06/08/22 documented as of this encounter
[2023-12-22 06:37] LABS: Basophils # (auto) 0.03 K/uL (0.00-0.20); Basophils % (auto) 0.4 %; Eosinophils # (auto) 0.05 K/uL (0.00-0.50); Eosinophils % (auto) 0.7 %; Hematocrit (blood only) 31.6 % (37.0-47.0); Hemoglobin 10.3 g/dl (12.0-16.0); Immature Granulocytes # (auto) 0.03 K/uL (0.01-0.20); Immature Granulocytes % (auto) 0.4 %; Lymphocytes # (auto) 1.45 K/uL (1.20-3.40); Lymphocytes % (auto) 19.4 %; Mean Corpuscular Hemoglobin 27.8 pg (25.0-34.0); Mean Corpuscular Hgb Conc 32.6 g/dL (32.0-36.0); Mean Corpuscular Volume 85.2 fL (80.0-100.0); Mean Platelet Volume 9.5 fL (9.4-12.4); Monocytes # (auto) 0.53 K/uL (0.11-0.59); Monocytes % (auto) 7.1 %; Neutrophils # (auto) 5.38 K/uL (1.40-6.50); Platelet Count 329 K/uL (130-400); RDW Coefficient of Variation 13.7 % (11.5-14.5); RDW Standard Deviation 42.5 fL (36.4-46.3); Red Blood Count 3.71 M/uL (4.20-5.40); White Blood Count 7.47 K/ul (4.8-10.8)
[2023-12-22 06:42] LABS: BUN Creatinine Ratio 19.7 (10-20); Calcium 8.2 mg/dl (8.6-10.3); Creatinine Clr Calc Pharmacy 142.1 ml/min; Est GFR (African American) 119.2 ml/min; Est GFR (Non-African American) 102.9 ml/min; Potassium 3.8 mmol/L (3.5-5.1)
[2023-12-22 06:48] LABS: Troponin I High Sensitivity 3.7 pg/ml (0-14)
[2023-12-22 07:27] LABS: Estimated Average Glucose 134 mg/dl; Hemoglobin A1C 6.3 % (4.5-5.6)
[2023-12-22] MEDS: MoRPHine SULFATE 4 MG/ML 1 ML CARP\\VIAL IV PRN (08:13)
[2023-12-22] MEDS: COLCHICINE 0.6 MG TAB PO SCH (08:14)
[2023-12-22] MEDS: AZITHROMYCIN 250 MG TAB PO SCH (08:14)
[2023-12-22] MEDS: ENOXAPARIN INJ 40 MG/0.4 ML SYR SQ SCH (08:15)
--- NOTE | 2023-12-22 10:30 | Electrocardiogram Report ---
Test Reason : Blood Pressure : / mmHG Vent. Rate : 079 BPM Atrial Rate : 079 BPM P-R Int : 140 ms QRS Dur : 078 ms QT Int : 366 ms P-R-T Axes : 025 042 -03 degrees QTc Int : 419 ms Normal sinus rhythm Diffuse Minor Nonspecific T wave abnormality Abnormal ECG When compared with ECG of 21-SEP-2023 08:42, Nonspecific T wave abnormality now present Confirmed by Ernesto Quezada ([id number]) on 12/22/2023 10:29:57 AM Referred By: REFERRED SELF Confirmed By:Ernesto Quezada
--- NOTE | 2023-12-22 10:30 | Electrocardiogram Report ---
Test Reason : Blood Pressure : / mmHG Vent. Rate : 064 BPM Atrial Rate : 064 BPM P-R Int : 170 ms QRS Dur : 092 ms QT Int : 408 ms P-R-T Axes : 041 020 006 degrees QTc Int : 420 ms Normal sinus rhythm Diffuse Minor Nonspecific T wave abnormality Abnormal ECG When compared with ECG of 21-DEC-2023 17:01, No significant change was found Confirmed by Ernesto Quezada ([id number]) on 12/22/2023 10:30:13 AM Referred By: REFERRED SELF Confirmed By:Ernesto Quezada
--- NOTE | 2023-12-22 12:56 | Hospitalist Progress Note ---
Date of Service December 22, 2023 Assessment & Plan (1) Acute hypoxemic respiratory failure: Plan: 43-year-old lady with PMH of psoriatic arthritis on Tremfya, pseudotumor cerebri, obesity on Ozempic, past tobacco abuse presented with complaint of 2- week history of generalized weakness and achiness, no cough symptoms, shortness of breath present. Lowest O2 saturation documented in the ED was 89%. She is being managed for the following: Hypoxia Pneumonia Patient presents with shortness of breath and generalized illness. Atypical presentation given predominance of constitutional symptoms. Admitting CTA chest positive for consolidation at lung bases with trace left parapneumonic effusion Patient is immunocompromised given history of psoriatic arthritis on Tremfya. Patient was a started on azithromycin and Rocephin 12/22, continue. Supplemental oxygen, wean down oxygen as tolerated. Advance diet as tolerated. Repeat CXR in 6 weeks time to document resolution. Prediabetes: A1c of 6.3, will certified alcohol and drug counselor lifestyle modification and long-term monitoring with PCP, A1c in 3 months. Obesity: BMI 48, lifestyle modification and weight loss encouraged. Psoriatic arthritis: Continue prior medications. DVT prophylaxis per Lovenox subcu Full code Text document was generated using [employer] voice recognition software. It may contain grammatical or spelling errors. Kindly contact undersigned for clarification of any documentation item in question. Admission and Anticipated Discharge Date Admission Date: December 21, 2023 Subjective Patient was seen and examined at bedside as a follow-up of hypoxia, pneumonia. Patient was lying in bed, on 2 L oxygen via nasal cannula, resting comfortably, not in any acute distress. Patient denies any pain, reports not feeling very well, poor appetite, moving bowels okay, no cough. Physical Exam Physical Exam: GENERAL: Alert and oriented x3. NAD, on 2L O2 via NC. HEENT: No pallor, no icterus. Pupils equal, round and reactive to light. Oral mucosa moist. NECK: No JVD, no neck masses. HEART: S1 and S2 heard. Regular rate and rhythm. No murmur, no gallop. RESPIRATORY SYSTEM: Normal AP diameter. No accessory muscle use. No wheezing, bb crackles. ABDOMEN: Soft, bowel sounds present, nontender, no distention. CENTRAL NERVOUS SYSTEM: No facial droop. Speech is clear. Obeys simple commands. Moves extremities. EXTREMITIES: trace ble edema, no erythema seen. Results & Data Results & Data Vital Signs (Past 12 Hours) Vital Signs Temp Pulse Pulse Resp BP Pulse Ox O2 Del Method 12/22/23 11:49 37.1 C 75 18 113/65 96 Nasal Cannula 12/22/23 07:44 61 12/22/23 07:43 36.6 C 65 20 116/66 94 Nasal Cannula 12/22/23 03:01 69 12/22/23 02:39 Nasal Cannula 12/22/23 02:15 36.8 C 85 24 118/74 94 Nasal Cannula O2 Flow Rate 12/22/23 11:49 2 12/22/23 07:44 12/22/23 07:43 2 12/22/23 03:01 12/22/23 02:39 2 12/22/23 02:15 2
[2023-12-22] MEDS: ETODOLAC 400 MG PO SCH (21:41)
[2023-12-22] MEDS: cefTRIAXone SODIUM 2,000 MG in DEXTROSE 5 % MINI-B 50 ML IV SCH (22:07)
[2023-12-23 06:38] LABS: Hemoglobin 10.8 g/dl (12.0-16.0); Mean Corpuscular Hemoglobin 27.8 pg (25.0-34.0); Mean Corpuscular Hgb Conc 32.7 g/dL (32.0-36.0); Mean Corpuscular Volume 85.1 fL (80.0-100.0); Mean Platelet Volume 9.5 fL (9.4-12.4); Platelet Count 299 K/uL (130-400); RDW Coefficient of Variation 13.4 % (11.5-14.5); RDW Standard Deviation 41.8 fL (36.4-46.3); Red Blood Count 3.88 M/uL (4.20-5.40); White Blood Count 6.02 K/ul (4.8-10.8)
[2023-12-23 07:28] LABS: BUN Creatinine Ratio 17.2 (10-20); Calcium 8.6 mg/dl (8.6-10.3); Creatinine Clr Calc Pharmacy 173.4 ml/min; Est GFR (Non-African American) 111.3 ml/min; Magnesium 2.1 mg/dl (1.7-2.4); Phosphorus 3.8 mg/dl (2.5-4.9); Potassium 4.3 mmol/L (3.5-5.1)
--- NOTE | 2023-12-23 14:10 | Discharge Summary ---
Date of Service December 23, 2023 Admission HPI Per Admitting Provider History obtained from patient, family, and records. Medical history significant for psoriatic arthritis on Tremfya, pseudotumor cerebri, obesity on Ozempic, past tobacco abuse. 2 weeks history of generalized weakness and achiness. No cough symptoms. Shortness of breath with achy chest pain. Not sure about sick contacts. Fluid retention which patient attributes to psoriatic arthritis. Denies headache symptoms. No recent COVID-19 vaccination. Lowest O2 sats of 80s documented at the ER. Ceftriaxone and azithromycin administered at the ER. 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 Admission Exam Per Admitting Provider GENERAL: Slightly uncomfortable, ill-appearing, morbidly obese, looks older than stated age, no respiratory distress SKIN: Normal color, warm HEENT: [place] palpebral conjunctivae, no ptosis, dry buccal mucosa, nasal cannula in place NECK : Supple, short neck, no tenderness CHEST : Decreased breath sounds, no tenderness HEART : RRR, no obvious murmurs ABDOMEN: Some distention, nontender EXTREMITIES : Minimal LE swelling, no LE tenderness, no other conspicuous deformities noted NEUROLOGIC : Coherent, no facial asymmetry, no other gross focality Principal Diagnosis Hypoxia Pneumonia Discharge Exam GENERAL: Alert and oriented x3. NAD, on RA HEENT: No pallor, no icterus. Pupils equal, round and reactive to light. Oral mucosa moist. NECK: No JVD, no neck masses. HEART: S1 and S2 heard. Regular rate and rhythm. No murmur, no gallop. RESPIRATORY SYSTEM: Normal AP diameter. No accessory muscle use. No wheezing, bb crackles. ABDOMEN: Soft, bowel sounds present, nontender, no distention. CENTRAL NERVOUS SYSTEM: No facial droop. Speech is clear. Obeys simple commands. Moves extremities. EXTREMITIES: trace ble edema, no erythema seen. Discharge Data Allergies Allergy/AdvReac Type Severity Reaction Status Date / Time Sulfa (Sulfonamide Allergy Unknown Rash Verified 11/16/23 11:50 Antibiotics) Consultations 12/21/23 23:09 ED Decision to Admit Stat Ordered Studies 12/21/23 21:06 CT angio chest PE protocol Stat Hospital Course (1) Acute hypoxemic respiratory failure: 43-year-old lady with PMH of psoriatic arthritis on Tremfya, pseudotumor cerebri, obesity on Ozempic, past tobacco abuse presented with complaint of 2- week history of generalized weakness and achiness, no cough symptoms, shortness of breath present. Lowest O2 saturation documented in the ED was 89%. She was managed for the following: Hypoxia Pneumonia Patient presents with shortness of breath and generalized illness. Atypical presentation given predominance of constitutional symptoms. Admitting CTA chest positive for consolidation at lung bases with trace left pa rapneumonic effusion Patient is immunocompromised given history of psoriatic arthritis on Tremfya. Patient was a started on azithromycin and Rocephin 12/22, patient reports significantly feeling better, appetite improving, cough mild. To p.o. antibiotic on discharge. Patient underwent two-step test, no oxygen requirement. Patient has been afebrile. Repeat CXR in 6 weeks time to document resolution. Patient has been made aware. Prediabetes: A1c of 6.3, encourage lifestyle modification and long-term monitoring with PCP, A1c in 3 months. Obesity: BMI 48, lifestyle modification and weight loss encouraged. Psoriatic arthritis: Continue prior medications. DVT prophylaxis per Lovenox subcu Full code Patient is being discharged with following instruction at the point of discharge: Follow-up with your primary care physician within a week time and likely you will need labs CBC/CMP/magnesium/phosphorus. You will be discharged on antibiotics to complete the course for pneumonia. Probiotics will be added. You need repeat imaging of the chest in 6 weeks time to document resolution of pneumonia. Your A1c was measured to be 6.3 while in hospital. It is prediabetes level. Recommend to incorporate lifestyle modification including healthy diet and weight loss, follow-up A1c in 3 months time. Coordinate with your PCP office to set up the test and long-term management. Take your medications as prescribed. Please make sure that you are able to get your medications today by calling your pharmacy before you leave the hospital so that your treatment continuity is not broken. Text document was generated using [employer] voice recognition software. It may contain grammatical or spelling errors. Kindly contact undersigned for clarification of any documentation item in question. [facility] Attestation I certify that this patient is under my care and that I, or a physicians executive assistant to general counsel working with me, had a face to-face encounter that meets the [id number] encounter requirements with this patient. The encounter with the patient was in whole, or in part, for the following medical condition, which is the primary reason for home health care (list medi andreea condition): I certify that, based on my findings, the following services are medically necessary home health services: My clinical findings support the need for the above services because: Further, I certify that my clinical findings support that this patient is homebound (i.e. absences from home require considerable and taxing effort and are for medical reasons or [facility] services or infrequently or of short duration when for other reasons) because: Certification for Home Health Services: Based on the above findings, I certify that this patient is confined to the home and needs intermittent long-term care, physical therapy and/or speech ther apy or continues to need occupational therapy. The patient is under my care, and I have initiated the establishment of the plan of care. This patient will be followed by a physician who will periodically review the plan of care. Total Time Total Time Spent Total Time Spent (In Minutes): 45 Discharge Plan Discharge Items Patient Disposition: Home - Self-Care Reason For Visit: RESP FAILURE Discharge Diagnosis: Hypoxia Pneumonia Activity: Resume your previous activity Non-emergency contact: Primary Care Provider Call non-emergency contact if: you have any medication questions, your symptoms worsen and your temperature is above 101 Follow-up/Referrals: Usama Block MD [Primary Care Provider] - Diet: Heart Healthy Addtl Attending Provider Instructions: Follow-up with your primary care physician within a week time and likely you will need labs CBC/CMP/magnesium/phosphorus. You will be discharged on antibiotics to complete the course for pneumonia. Probiotics will be added. You need repeat imaging of the chest in 6 weeks time to document resolution of pneumonia. Your A1c was measured to be 6.3 while in hospital. It is prediabetes level. Recommend to incorporate lifestyle modification including healthy diet and weight loss, follow-up A1c in 3 months time. Coordinate with your PCP office to set up the test and long-term management. Take your medications as prescribed. Please make sure that you are able to get your medications today by calling your pharmacy before you leave the hospital so that your treatment continuity is not broken. Pending Studies at Discharge: No Stand-Alone Forms: My [employer], Smoking Cessation Medications and DC Order Prescriptions: New azithromycin 250 mg Tablet 250 mg PO QAM 3 Days Qty: 3 0RF cefdinir 300 mg Capsule 300 mg PO BID 6 Days Qty: 12 0RF Advanced Probiotic 625 mg (10 billion cell) Capsule 2 cap PO DAILY 7 Days Qty: 14 0RF Continued etodolac 400 mg tablet 400 mg PO BID Qty: 60 2RF colchicine 0.6 mg capsule 0.6 mg PO DAILY desonide 0.05 % ointment 1 applic topical .COMPLEX Rx Instructions: 1 applic topical to areas of face twice daily x 1 week, then once daily x 1 week as directed for flaring. Ozempic 0.25 mg or 0.5 mg (2 mg/3 mL) pen injector 1 mg subcut WK Patient Comments: monday Rx Instructions: Patient states she takes this on Fridays Tremfya 100 mg/mL syringe 100 mg subcut .COMPLEX Qty: 1 2RF Rx Instructions: 100 mg subcutaneously every 8 weeks for maintenance as directed.; Last Dose: November/2023 Discharge Orders: Discharge Order (Routine); Ordered 12/23/23 Ordered By: Jerrell Cm/Other Patient Handouts: Prediabetes, 5 Steps for Eating Healthier Admission Data Admit Date/Time: 12/21/23 23:46 Attending Provider: Jerrell Pandey Admit Provider: Aj Pacheco Primary Care Provider: Usama Block Other Providers: Aj Pacheco
[2023-12-23] MEDS ORDERED: CEFDINIR 300 MG CAP PO SCH (21:00)
[2023-12-24] MEDS ORDERED: ADVANCED PROBIOTIC 1250 MG CAPSULE PO SCH (09:00)
[2023-12-25 15:40] LABS: Babesia microti DNA Not Detected (Not Detected)
== END 2023-12-23 15:59 | disposition home or self-care (01) | DRG 193 ==
LOC: ED 16:15 → EDINP 23:46 → 2N 12-22 02:05

== ENCOUNTER 2024-02-16 18:01 | Observation (INO) ==
--- NOTE | 2024-02-16 18:41 | XRay Report ---
XR chest 1V not portable HISTORY: 43 years-old Female Chest pain, nonspecific COMPARISON: 12/21/2023 TECHNIQUE: PA view the chest FINDINGS: Cardiac silhouette is enlarged. Small left pleural effusion with persistent left basilar consolidatio n. No pneumothorax or overt pulmonary edema. Bones are grossly intact. Right upper abdominal surgical clips. IMPRESSION: Small left pleural effusion with persistent left basilar consolidation suggestive of pneu monia. Similar findings were present on the 12/21/2023 exam. ACT 112: Negative or not required by law. The above report was generated using voice recognition software. It may contain grammatical, syntax o r spelling errors. Electronically signed by: Nick Jon M.D. 02/16/2024 6:39 PM
[2024-02-16 19:29] LABS: Basophils # (auto) 0.05 K/uL (0.00-0.20); Basophils % (auto) 0.5 %; Eosinophils # (auto) 0.14 K/uL (0.00-0.50); Eosinophils % (auto) 1.5 %; Hematocrit (blood only) 37.7 % (37.0-47.0); Hemoglobin 11.8 g/dl (12.0-16.0); Immature Granulocytes # (auto) 0.04 K/uL (0.01-0.20); Immature Granulocytes % (auto) 0.4 %; Lymphocytes % (auto) 16.9 %; Mean Corpuscular Hemoglobin 26.4 pg (25.0-34.0); Mean Corpuscular Hgb Conc 31.3 g/dL (32.0-36.0); Mean Corpuscular Volume 84.3 fL (80.0-100.0); Mean Platelet Volume 9.6 fL (9.4-12.4); Monocytes # (auto) 0.42 K/uL (0.11-0.59); Monocytes % (auto) 4.4 %; Neutrophils # (auto) 7.21 K/uL (1.40-6.50); Neutrophils % (auto) 76.3 %; Platelet Count 349 K/uL (130-400); RDW Standard Deviation 42.8 fL (36.4-46.3); Red Blood Count 4.47 M/uL (4.20-5.40); White Blood Count 9.46 K/ul (4.8-10.8)
[2024-02-16 19:49] LABS: Albumin Globulin Ratio 1.3 (0.9-2); Albumin Level 4.4 gm/dl (3.4-5.0); BUN Creatinine Ratio 16.7 (10-20); Bilirubin,Total 0.5 mg/dl (0.2-1.0); Calcium 9.1 mg/dl (8.6-10.3); Creatinine Clr Calc Pharmacy 138.3 ml/min; Est GFR (African American) 117.2 ml/min; Est GFR (Non-African American) 101.1 ml/min; Globulin 3.5 gm/dl (2.5-4.0); Potassium 4.1 mmol/L (3.5-5.1); Total Protein 7.9 gm/dl (6.0-8.3)
[2024-02-16 19:54] LABS: Troponin I High Sensitivity 3.4 pg/ml (0-14)
[2024-02-16 19:56] LABS: Partial Thromboplastin Time 28 Seconds (21-31); Prothrombin Time 10.5 Seconds (9.0-12.0)
--- NOTE | 2024-02-16 19:59 | Emergency Department Note ---
Impression & Plan Chest pain, Pleural effusion, Acute pericardial effusion ED Provider Note NAME: MI WONG AGE: 43 SEX: F : 1980 ARRIVES VIA: Walk-In INFORMANT: Patient, ED PROVIDER(S): Fawad Leos DO CHIEF COMPLAINT: Chest pain HPI: The patient is a 43-year-old female who presented to the emergency department for an evaluation of chest pain. The patient's had symptoms since approximately 2-3 o'clock this morning. She states the pain is constant. She states it is on the right side of her chest and does not radiate. The patient also notices some shortness of breath as well as cough. She had similar episode in December of this year. She was diagnosed with pneumonia as well as a small pleural effusion. She states the symptoms feel similar. She did follow-up with her primary care physician today for repeat laboratory and radiographic studies from that visit. She was not sure of her oxygen saturation. The patient denies having any hemoptysis. She denies having any lower extremity swelling or pain. ROS: See above HPI for pertinent positives & negatives. A total of 10 systems reviewed and were otherwise negative. PAST MEDICAL HISTORY: See Below PAST SURGICAL HISTORY: See Below FAMILY HISTORY: See Below SOCIAL HISTORY: See Below HOME MEDICATIONS: See Below ALLERGIES: See Below VITALS: See Below PHYSICAL EXAMINATION: GENERAL: Patient is awake alert in no acute distress patient is resting comfortably and showing no signs of anxiety EYES: The conjunctivae are clear. The pupils are round and reactive. EARS, NOSE, MOUTH AND THROAT: The nose is without any evidence of any deformity. NECK: The neck is nontender and supple. RESPIRATORY: Diminished breath sounds are noted at the right base. There were rales at the right base. There is no tachypnea or conversational dyspnea. There was some splinting with respirations. CARDIOVASCULAR: Regular rate and rhythm noted there no murmurs rubs or gallops normal S1 normal S2. GASTROINTESTINAL: The abdomen is soft. Abdomen is nontender. MUSCULOSKELETAL/EXTREMITIES: There is no evidence of gross deformity full range of motion is noted in the hips and shoulders. SKIN: There is no obvious evidence of any rash. Skin was warm and dry. There was no significant pedal edema. NEUROLOGIC: Patient is awake alert and oriented x3 MEDICAL DECISION MAKING: The patient is a 43-year-old female who presented to the emergency department with cough. The patient's had cough and chest pain. She was seen in our facility 2 months ago for similar complaints. At that time she was diagnosed with pneumonia as well as a small pleural effusion. The patient presented today with similar symptoms. I initially thought her condition was can consistent with another pneumonia. She was given IV antibiotics. She was found to have a D-dimer that was elevated. This is the second elevated D-dimer that she has had. For this reason another CT of the chest was obtained. This time she does appear to have bilateral pleural effusions as well as a pericardial effusion. Given the patient's presentation I do feel that she may be a better candidate for inpatient management and possible echocardiogram in the morning. [facility] to evaluate the patient in the emergency department for further management and disposition. Triage Nursing notes reviewed. Prior medical records reviewed Vital Signs: reviewed and remarkable for no significant abnormalities Differential diagnosis: Cardiac ischemia, aortic dissection, pulmonary embolism, pneumothorax, pneumonia, pericarditis, myocarditis, esophageal rupture, GERD, cholecystitis, pancreatitis, musculoskeletal, as well as other pathologies. ER treatment provided: See below Diagnostics interpreted by me: ECG: EKG was obtained in the emergency department. My interpretation is normal sinus rhythm at 92 bpm. There was no ectopy. Nonspecific ST segment abnormalities noted. This was compared to a tracing from December 22, 2023. No changes were noted. Cardiac Monitoring: An order was placed for continuous cardiac monitoring. The monitor shows a rate of 85 bpm with sinus rhythm. Laboratory studies: As stated above and show below. Imaging studies: See below. Radiographic imaging was reviewed by myself Consultation(s): I discussed this case with Dr. Ibanez who [facility] Past Med/Surg History Medical History History of COVID-19 10/2021- no hosp, resolved Psoriatic arthritis Obesity, morbid, BMI 40.0-49.9 on ozempic weekly Pseudotumor cerebri monitored Fatty liver Surgical History S/P cholecystectomy S/P tubal ligation History of section X 2 History of wisdom tooth extraction Family History Grandfather (Paternal) Colorectal cancer, Onset Age: 63 Mother Breast cancer Grandmother (Maternal) Breast cancer Aunt Breast cancer multiple maternal aunts Denies family history of Ovarian cancer Uterine cancer Social History Smoking Status: Former smoker Tobacco Type: Cigarettes Second Hand Exposure: Yes ( A CHILD); Do You Dip or Chew Tobacco: No; Hx Alcohol Use: Yes Alcohol type: hard liquor Hx Substance Use: No Preferred Language: Swedish Communication Ability: Effective Visual Impairment: No Limitations Resin Remover Required: No Beliefs That Will Affect Care: None Current Living Situation: Family Current Living Situation Comment: AND CHILDREN Feels Safe at Home: Yes Safety Concerns: Feels Safe At This Time Assistive Devices: None Allergies Allergies Allergy/AdvReac Type Severity Reaction Status Date / Time Sulfa (Sulfonamide Allergy Unknown Rash Verified 02/15/24 11:12 Antibiotics) Home Meds Home Medications Medication Instructions Recorded Confirmed semaglutide 0.25 mg or 0.5 mg (2 1 mg subcut WK 07/03/23 02/16/24 mg/3 mL) subcutaneous pen injector (OzApparity) desonide 0.05 % topical ointment 1 applic topical .COMPLEX 07/05/23 02/16/24 betamethasone dipropionate 0.05 % 1 applic topical DAILY PRN flaring 02/16/24 02/16/24 lotion duloxetine 30 mg capsule,delayed 30 mg PO UD 02/16/24 02/16/24 release (Cymbalta) mometasone 0.1 % topical cream 1 applic topical BID PRN flaring 02/16/24 02/16/24 Previous Rx's Medication Instructions Recorded guselkumab 100 mg/mL subcutaneous 100 mg subcut .COMPLEX #1 mL 01/03/24 syringe (Josiane) Results & Data (ED) Vital Signs Vital Signs - 24 hr 02/16/24 18:02 02/16/24 18:02 02/16/24 21:00 Temperature 37.2 C 36.7 C Temperature Source Oral Oral Pulse Rate 91 H Pulse Rate [Apical] 89 Pulse Rate from SpO2 Sensor Pulse Rhythm Pulse Rhythm [Apical] Regular Pulse Strength [Apical] Normal Respiratory Rate 18 22 Respiratory Effort / Characteristics Non-Labored Spontaneous Short of Breath Respiratory Depth Normal Respiratory Pattern Regular Blood Pressure 145/101 H Blood Pressure [Right Arm] 120/75 Blood Pressure Mean 115 Blood Pressure Mean [Right Arm] 90 Blood Pressure Position [Right Arm] Pulse Oximetry 93 90 Oxygen Delivery Method Room Air Room Air Oxygen Flow Rate Sepsis Recent Fever Within 48 Hours No Sepsis New/Unexplained Change in Mental Status N/A Sepsis Action Taken by Nursing No Action Required Oxygen Flow Rate - Titration Pulse Oximetry Post Tiitration 02/16/24 21:29 02/16/24 21:29 02/16/24 21:55 Temperature Temperature Source Pulse Rate 84 83 Pulse Rate [Apical] Pulse Rate from SpO2 Sensor Pulse Rhythm Regular Pulse Rhythm [Apical] Pulse Strength [Apical] Respiratory Rate 20 Respiratory Effort / Characteristics Respiratory Depth Respiratory Pattern Blood Pressure Blood Pressure [Right Arm] Blood Pressure Mean Blood Pressure Mean [Right Arm] Blood Pressure Position [Right Arm] Pulse Oximetry 90 94 Oxygen Delivery Method Room Air Nasal Cannula Oxygen Flow Rate 0 2 Sepsis Recent Fever Within 48 Hours Sepsis New/Unexplained Change in Mental Status Sepsis Action Taken by Nursing Oxygen Flow Rate - Titration 2 Pulse Oximetry Post Tiitration 94 02/16/24 21:56 02/16/24 22:00 02/16/24 22:10 Temperature Temperature Source Pulse Rate 81 86 88 Pulse Rate [Apical] Pulse Rate from SpO2 Sensor 83 84 87 Pulse Rhythm Pulse Rhythm [Apical] Pulse Strength [Apical] Respiratory Rate 18 22 22 Respiratory Effort / Characteristics Respiratory Depth Respiratory Pattern Blood Pressure Blood Pressure [Right Arm] Blood Pressure Mean Blood Pressure Mean [Right Arm] Blood Pressure Position [Right Arm] Pulse Oximetry 94 95 93 Oxygen Delivery Method Oxygen Flow Rate Sepsis Recent Fever Within 48 Hours Sepsis New/Unexplained Change in Mental Status Sepsis Action Taken by Nursing Oxygen Flow Rate - Titration Pulse Oximetry Post Tiitration 02/16/24 22:20 02/16/24 22:30 02/16/24 22:40 Temperature Temperature Source Pulse Rate 81 84 86 Pulse Rate [Apical] Pulse Rate from SpO2 Sensor 83 84 86 Pulse Rhythm Pulse Rhythm [Apical] Pulse Strength [Apical] Respiratory Rate 21 21 28 H Respiratory Effort / Characteristics Respiratory Depth Respiratory Pattern Blood Pressure Blood Pressure [Right Arm] Blood Pressure Mean Blood Pressure Mean [Right Arm] Blood Pressure Position [Right Arm] Pulse Oximetry 95 96 93 Oxygen Delivery Method Oxygen Flow Rate Sepsis Recent Fever Within 48 Hours Sepsis New/Unexplained Change in Mental Status Sepsis Action Taken by Nursing Oxygen Flow Rate - Titration Pulse Oximetry Post Tiitration 02/16/24 22:50 02/16/24 23:00 02/16/24 23:00 Temperature 36.8 C Temperature Source Oral Pulse Rate 87 85 Pulse Rate [Apical] Pulse Rate from SpO2 Sensor 86 83 Pulse Rhythm Pulse Rhythm [Apical] Pulse Strength [Apical] Respiratory Rate 22 23 Respiratory Effort / Characteristics Respiratory Depth Respiratory Pattern Blood Pressure Blood Pressure [Right Arm] Blood Pressure Mean Blood Pressure Mean [Right Arm] Blood Pressure Position [Right Arm] Pulse Oximetry 94 94 Oxygen Delivery Method Oxygen Flow Rate Sepsis Recent Fever Within 48 Hours Sepsis New/Unexplained Change in Mental Status Sepsis Action Taken by Nursing Oxygen Flow Rate - Titration Pulse Oximetry Post Tiitration 02/16/24 23:00 02/16/24 23:07 02/16/24 23:08 Temperature Temperature Source Pulse Rate 81 Pulse Rate [Apical] 83 Pulse Rate from SpO2 Sensor 82 Pulse Rhythm Pulse Rhythm [Apical] Regular Pulse Strength [Apical] Normal Respiratory Rate 23 20 Respiratory Effort / Characteristics Non-Labored Spontaneous Non-Labored Spontaneous Respiratory Depth Normal Normal Respiratory Pattern Regular Regular Blood Pressure 110/64 Blood Pressure [Right Arm] 110/64 Blood Pressure Mean 79 Blood Pressure Mean [Right Arm] 79 Blood Pressure Position [Right Arm] Lying Pulse Oximetry 94 95 Oxygen Delivery Method Room Air Room Air Nasal Cannula Oxygen Flow Rate 2 Sepsis Recent Fever Within 48 Hours Sepsis New/Unexplained Change in Mental Status Sepsis Action Taken by Nursing Oxygen Flow Rate - Titration Pulse Oximetry Post Tiitration 02/16/24 23:30 02/17/24 00:00 Temperature Temperature Source Pulse Rate 83 85 Pulse Rate [Apical] Pulse Rate from SpO2 Sensor 83 85 Pulse Rhythm Pulse Rhythm [Apical] Pulse Strength [Apical] Respiratory Rate 24 20 Respiratory Effort / Characteristics Respiratory Depth Respiratory Pattern Blood Pressure 128/77 140/78 Blood Pressure [Right Arm] Blood Pressure Mean 94 98 Blood Pressure Mean [Right Arm] Blood Pressure Position [Right Arm] Pulse Oximetry 96 95 Oxygen Delivery Method Room Air Room Air Oxygen Flow Rate Sepsis Recent Fever Within 48 Hours Sepsis New/Unexplained Change in Mental Status Sepsis Action Taken by Nursing Oxygen Flow Rate - Titration Pulse Oximetry Post Tiitration Home Medications Current Medication List: was personally reviewed by me Laboratory Data Attestation: I reviewed the patient's lab results. 02/16/24 17:54 02/16/24 17:54 Lab Results 02/16/24 02/16/24 02/16/24 Range/Units 17:54 22:37 23:36 WBC 9.46 (4.8-10.8) K/ul RBC 4.47 (4.20-5.40) M/uL Hgb 11.8 L (12.0-16.0) g/dl Hct 37.7 (37.0-47.0) % MCV 84.3 (80.0-100.0) fL MCH 26.4 (25.0-34.0) pg MCHC 31.3 L (32.0-36.0) g/dL RDW Std Deviation 42.8 (36.4-46.3) fL RDW Coeff of Tangela 14.0 (11.5-14.5) % Plt Count 349 (130-400) K/uL MPV 9.6 (9.4-12.4) fL Immature Gran % (Auto) 0.4 % Neut % (Auto) 76.3 % Lymph % (Auto) 16.9 % Luna % (Auto) 4.4 % Eos % (Auto) 1.5 % Baso % (Auto) 0.5 % Neut # (Auto) 7.21 H (1.40-6.50) K/uL Lymph # (Auto) 1.60 (1.20-3.40) K/uL Luna # (Auto) 0.42 (0.11-0.59) K/uL Eos # (Auto) 0.14 (0.00-0.50) K/uL Baso # (Auto) 0.05 (0.00-0.20) K/uL Immature Gran # (Auto) 0.04 (0.01-0.20) K/uL ESR 16 (0-20) mm/hr PT 10.5 (9.0-12.0) Seconds INR 1.0 (0.9-1.1) APTT 28 (21-31) Seconds PTT Ratio 1.0 D-Dimer 2280 H* (0-500) ug/L FEU Sodium 138 (136-145) mmol/L Potassium 4.1 (3.5-5.1) mmol/L Chloride 102 (98-107) mmol/L Carbon Dioxide 27 (21-32) mmol/L Anion Gap 9 (3-11) BUN 12 (6-23) mg/dl Creatinine 0.72 (0.6-1.2) mg/dl Est Cr Clr Drug Dosing 138.3 ml/min Est GFR ( Amer) 117.2 ml/min Est GFR (Non-Af Amer) 101.1 ml/min BUN/Creatinine Ratio 16.7 (10-20) Glucose 106 H (70-99(Fasting)) mg/dl Calcium 9.1 (8.6-10.3) mg/dl Magnesium 1.8 (1.7-2.4) mg/dl Total Bilirubin 0.5 (0.2-1.0) mg/dl AST 12 L (13-39) U/L ALT 11 (7-52) U/L Alkaline Phosphatase 101 (34-104) U/L Troponin I High Sens 3.4 (0-14) pg/ml C-Reactive Protein 6.36 H (0-0.5) mg/dl Total Protein 7.9 (6.0-8.3) gm/dl Albumin 4.4 (3.4-5.0) gm/dl Globulin 3.5 (2.5-4.0) gm/dl Albumin/Globulin Ratio 1.3 (0.9-2) Adenovirus (PCR) Not Detected (NotDetected) B. pertussis DNA (PCR) Not Detected (NotDetected) B.parapertussis DNA PCR Not Detected (NotDetected) C. pneumoniae DNA (PCR) Not Detected (NotDetected) Coronavirus OC43 (PCR) Not Detected (NotDetected) Coronavirus HKU1 (PCR) Not Detected (NotDetected) Coronavirus 229E (PCR) Not Detected (NotDetected) SARS-CoV-2 (PCR) Not Detected (NotDetected) Coronavirus NL63 (PCR) Not Detected (NotDetected) Human Metapneumovir PCR Not Detected (NotDetected) Influenza Type A (PCR) Not Detected (NotDetected) Influenza Type B (PCR) Not Detected (NotDetected) M. pneumoniae (PCR) Not Detected (NotDetected) Parainfluenza 1 (PCR) Not Detected (NotDetected) Parainfluenza 2 (PCR) Not Detected (NotDetected) Parainfluenza 3 (PCR) Not Detected (NotDetected) Parainfluenza 4 (PCR) Not Detected (NotDetected) RSV (PCR) Not Detected (NotDetected) Entero/Rhino (PCR) Not Detected (NotDetected) Administered Medications Sodium Chloride (Nss) 1,000 mls @ 60 mls/hr IV .[id number] STA Stop: 02/17/24 15:56 Last Admin: 02/16/24 23:27 Dose: 60 mls/hr Documented By: KEVIN Discontinued Medications Ceftriaxone Sodium (Rocephin) 2,000 mg in 50 mls @ 100 mls/hr IV NOW STA Stop: 02/16/24 20:25 Last Infusion: 02/16/24 20:36 Dose: Infused Documented By: Admin: 02/16/24 20:01 Dose: 100 mls/hr Documented By: MELCHOR Ioversol (Optiray 320 125ml) 115 ml IV ONCE ONE Stop: 02/16/24 20:30 Last Admin: 02/16/24 20:29 Dose: 115 ml Documented By: JO-ANN Ketorolac Tromethamine (Ketorolac Tromethamine 15 Mg/Ml Vial) 10 mg IV NOW ONE Stop: 02/16/24 19:57 Last Admin: 02/16/24 20:02 Dose: 10 mg Documented By: MELCHOR Imaging Data Attestation: I personally reviewed and interpreted this imaging study as follows: My Impression: 1 view chest x-ray was obtained in the emergency department. My interpretation is pleural effusion, there is no free air, final report below Radiologist's Impression: Chest X-Ray 02/16/24 18:12 XR chest 1V not portable HISTORY: 43 years-old Female Chest pain, nonspecific COMPARISON: 12/21/2023 TECHNIQUE: PA view the chest FINDINGS: Cardiac silhouette is enlarged. Small left pleural effusion with persistent left basilar consolidation. No pneumothorax or overt pulmonary edema. Bones are grossly intact. Right upper abdominal surgical clips. IMPRESSION: Small left pleural effusion with persistent left basilar consolidation suggestive of pneumonia. Similar findings were present on the 12/21/2023 exam. ACT 112: Negative or not required by law. The above report was generated using voice recognition software. It may contain grammatical, syntax or spelling errors. Electronically signed by: Nick Jon M.D. 02/16/2024 6:39 PM Chest CTA 02/16/24 20:00 Exam(s): CTA CHEST IV Amt: OPTIRAY 320 115ML EXAM: CT Angiography Chest With Intravenous Contrast CLINICAL HISTORY: Reason for exam: PE. TECHNIQUE: Axial computed tomographic angiography images of the chest with intravenous contrast. CTDI is 40 mGy and DLP is 790.36 mGy-cm. Automated exposure control was utilized for the study. A dose lowering technique was utilized adhering to the principles of ALARA. MIP reconstructed images were created and reviewed. COMPARISON: CT December 21, 2023 FINDINGS: Pulmonary arteries: No pulmonary embolism. Aorta: No acute findings. Normal caliber. No dissection. Lungs: Bilateral atelectasis left greater than right. Pleural space: Small left pleural effusion. Heart: Small pericardial effusion. Bones/joints: No acute fracture. Soft tissues: Unremarkable. Lymph nodes: Unremarkable. IMPRESSION: 1. No pulmonary embolism. 2. Bilateral atelectasis left greater than right. 3. Small left pleural effusion. 4. Small pericardial effusion. Electronically signed by: Angus Alberto MD 02/16/24 22:13 PM Discharge Plan Visit Data Chief Complaint: Shortness of Breath/Dyspnea Stated Complaint: SOB, CHEST PAIN ED Provider: Fawad Leos Discharge Problem: Chest pain, Pleural effusion, Acute pericardial effusion Patient Disposition: Being Evaluated by Hospitalist Discharge Instructions Interventions: ED Discharge Assessment Last Done: 02/17/24 00:21 Forms Stand Alone Forms: [facility] Prescriptions Prescriptions: No Action desonide 0.05 % ointment 1 applic topical .COMPLEX Rx Instructions: 1 applic topical to areas of face twice daily x 1 week, then once daily x 1 week as directed for flaring. Ozempic 0.25 mg or 0.5 mg (2 mg/3 mL) pen injector 1 mg subcut WK Patient Comments: monday Rx Instructions: Patient states she takes this on MONDAYS Tremfya 100 mg/mL syringe 100 mg subcut .COMPLEX Qty: 1 2RF Rx Instructions: 100 mg subcutaneously every 8 weeks for maintenance as directed.; Last Dose: November/2023 mometasone 0.1 % cream 1 applic topical BID PRN (Reason: flaring) Rx Instructions: Apply to areas of the trunk and extremities twice daily for up to 2 weeks as needed for flaring. betamethasone dipropionate 0.05 % lotion 1 applic topical DAILY PRN (Reason: flaring) Rx Instructions: Apply to areas of the scalp daily for up to 2 weeks as needed for flaring. duloxetine [Cymbalta] 30 mg Capsule,Delayed Release(Dr/Ec) 30 mg PO UD Rx Instructions: HASNT STARTED JUST ORDERED AND AT PHARMACY Referrals Referrals: Usama Block MD [Primary Care Provider] - Discharge Problem: Chest pain Qualifiers: Chest pain type: unspecified Qualified Code(s): R07.9 - Chest pain, unspecified
[2024-02-16 20:00] LABS: D Dimer 2280 ug/L FEU (0-500)
[2024-02-16] MEDS: cefTRIAXone SODIUM 2,000 MG/50 ML BAG IV STA (20:01)
[2024-02-16] MEDS: KETOROLAC TROMETHAMINE 15 MG/ML VIAL IV ONE (20:02)
[2024-02-16] MEDS: OPTIRAY 320 125ml IV ONE (20:29)
--- NOTE | 2024-02-16 22:15 | CT Scan Report ---
Exam(s): CTA CHEST IV Amt: OPTIRAY 320 115ML EXAM: CT Angiography Chest With Intravenous Contrast CLINICAL HISTORY: Reason for exam: PE. TECHNIQUE: Axial computed tomographic angiography images of the chest with intravenous contrast. CTDI is 40 mGy and DLP is 790.36 mGy-cm. Automated exposure control was utilized for the study. A dose lowering technique was utilized adhering to the principles of ALARA. MIP reconstructed images were created and reviewed. COMPARISON: CT December 21, 2023 FINDINGS: Pulmonary arteries: No pulmonary embolism. Aorta: No acute findings. Normal caliber. No dissection. Lungs: Bilateral atelectasis left greater than right. Pleural space: Small left pleural effusion. Heart: Small pericardial effusion. Bones/joints: No acute fracture. Soft tissues: Unremarkable. Lymph nodes: Unremarkable. IMPRESSION: 1. No pulmonary embolism. 2. Bilateral atelectasis left greater than right. 3. Small left pleural effusion. 4. Small pericardial effusion. Electronically signed by: Angus Alberto MD 02/16/24 22:13 PM
--- NOTE | 2024-02-16 23:11 | History & Physical Report ---
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 PCU Analgesia Check inflammatory markers TTE, Cardiology consult Re: Pericardial effusion DVT prophylaxis per Lovenox subcu Full code Text document was generated using [employer] voice recognition software. It may contain grammatical or spelling errors. Kindly contact undersigned for clarification of any documentation item in question. History of Present Illness Chief Complaint: Chest pain Primary Care Provider: Usama Block MD History obtained from patient and records. Medical history significant for psoriatic arthritis on Tremfya, pseudotumor cerebri, prediabetes, obesity on Ozempic, past tobacco abuse. Last confinement 2 months ago for respiratory failure secondary to community- acquired pneumonia. Patient found to be prediabetic with hemoglobin A1c of 6.3. Patient discharged on azithromycin course. This morning, patient woke up with pleuritic right-sided chest pain with shortness of breath. No unusual cough symptoms. Denies fluid retention. Not sure about sick contacts. No prior episodes as per patient. Outpatient x-ray done showed There is an infiltrate in the left mid lung. Small left pleural effusion. No pneumothorax. Mild cardiomegaly. Patient directed to ER by PCP for further evaluation. IV ceftriaxone given at the ER. 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[employer] Allergies Allergy/AdvReac Type Severity Reaction Status Date / Time Sulfa (Sulfonamide Allergy Unknown Rash Verified 02/15/24 11:12 Antibiotics) Home Medications Medication Instructions Recorded Confirmed Type semaglutide 0.25 mg or 0.5 mg (2 1 mg subcut WK 07/03/23 02/16/24 History mg/3 mL) subcutaneous pen injector (Ozempic) desonide 0.05 % topical ointment 1 applic topical .COMPLEX 07/05/23 02/16/24 History guselkumab 100 mg/mL subcutaneous 100 mg subcut .COMPLEX #1 mL 01/03/24 02/16/24 Rx syringe (Tremfya) betamethasone dipropionate 0.05 % 1 applic topical DAILY PRN flaring 02/16/24 02/16/24 History lotion duloxetine 30 mg capsule,delayed 30 mg PO UD 02/16/24 02/16/24 History release (Cymbalta) mometasone 0.1 % topical cream 1 applic topical BID PRN flaring 02/16/24 02/16/24 History Past Med/Surg History Medical History History of COVID-19 10/2021- no hosp, resolved Psoriatic arthritis Obesity, morbid, BMI 40.0-49.9 on ozempic weekly Pseudotumor cerebri monitored Fatty liver Surgical History S/P cholecystectomy S/P tubal ligation History of section X 2 History of wisdom tooth extraction Family History Grandfather (Paternal) Colorectal cancer, Onset Age: 63 Mother Breast cancer Grandmother (Maternal) Breast cancer Aunt Breast cancer multiple maternal aunts Denies family history of Ovarian cancer Uterine cancer Social History Smoking Status: Former smoker Tobacco Type: Cigarettes Second Hand Exposure: Yes ( A CHILD); Do You Dip or Chew Tobacco: No; Hx Alcohol Use: Yes Alcohol type: hard liquor Hx Substance Use: No Preferred Language: Moroccan Communication Ability: Effective Visual Impairment: No Limitations Patient Ambassador Required: No Beliefs That Will Affect Care: None Current Living Situation: Family Current Living Situation Comment: AND CHILDREN Feels Safe at Home: Yes Safety Concerns: Feels Safe At This Time Assistive Devices: None Review of Systems Review of Systems: As per HPI, all other systems reviewed and negative Physical Exam Physical Exam: GENERAL: Pleasant, morbidly obese, no respiratory distress SKIN: Normal color, warm HEENT: Bespectacled, [place] palpebral conjunctivae, no ptosis, moist buccal mucosa NECK : Supple, short neck, no tenderness CHEST : Decreased breath sounds, no tenderness HEART : RRR, no obvious murmurs ABDOMEN: Some distention, nontender EXTREMITIES : Minimal LE swelling, no LE tenderness, no other conspicuous deformities noted NEUROLOGIC : Coherent, no facial asymmetry, no other gross focality Results & Data Results & Data Vital Signs (Past 12 Hours) Vital Signs Temp Pulse Pulse Resp BP BP Pulse Ox 02/16/24 23:08 83 20 110/64 95 02/16/24 23:00 85 23 94 02/16/24 22:50 87 22 94 02/16/24 22:40 86 28 H 93 02/16/24 22:30 84 21 96 02/16/24 22:20 81 21 95 02/16/24 22:10 88 22 93 02/16/24 22:00 86 22 95 02/16/24 21:56 81 18 94 02/16/24 21:29 84 20 94 02/16/24 21:29 90 02/16/24 21:00 36.7 C 89 22 120/75 90 02/16/24 18:02 02/16/24 18:02 37.2 C 91 H 18 145/101 H 93 O2 Del Method O2 Flow Rate 02/16/24 23:08 Nasal Cannula 2 02/16/24 23:00 02/16/24 22:50 02/16/24 22:40 02/16/24 22:30 02/16/24 22:20 02/16/24 22:10 02/16/24 22:00 02/16/24 21:56 02/16/24 21:29 Nasal Cannula 2 02/16/24 21:29 Room Air 0 02/16/24 21:00 Room Air 02/16/24 18:02 Room Air 02/16/24 18:02 Laboratory Results Laboratory Results WBC 9.46 K/ul (4.8-10.8) 02/16/24 17:54 RBC 4.47 M/uL (4.20-5.40) 02/16/24 17:54 Hgb 11.8 g/dl (12.0-16.0) L 02/16/24 17:54 Hct 37.7 % (37.0-47.0) 02/16/24 17:54 MCV 84.3 fL (80.0-100.0) 02/16/24 17:54 MCH 26.4 pg (25.0-34.0) 02/16/24 17:54 MCHC 31.3 g/dL (32.0-36.0) L 02/16/24 17:54 RDW Std Deviation 42.8 fL (36.4-46.3) 02/16/24 17:54 RDW Coeff of Tangela 14.0 % (11.5-14.5) 02/16/24 17:54 Plt Count 349 K/uL (130-400) 02/16/24 17:54 MPV 9.6 fL (9.4-12.4) 02/16/24 17:54 Immature Gran % (Auto) 0.4 % 02/16/24 17:54 Neut % (Auto) 76.3 % 02/16/24 17:54 Lymph % (Auto) 16.9 % 02/16/24 17:54 [place]oard % (Auto) 4.4 % 02/16/24 17:54 Eos % (Auto) 1.5 % 02/16/24 17:54 Baso % (Auto) 0.5 % 02/16/24 17:54 Neut # (Auto) 7.21 K/uL (1.40-6.50) H 02/16/24 17:54 Lymph # (Auto) 1.60 K/uL (1.20-3.40) 02/16/24 17:54 [place] # (Auto) 0.42 K/uL (0.11-0.59) 02/16/24 17:54 Eos # (Auto) 0.14 K/uL (0.00-0.50) 02/16/24 17:54 Baso # (Auto) 0.05 K/uL (0.00-0.20) 02/16/24 17:54 Immature Gran # (Auto) 0.04 K/uL (0.01-0.20) 02/16/24 17:54 PT 10.5 Seconds (9.0-12.0) 02/16/24 17:54 INR 1.0 (0.9-1.1) 02/16/24 17:54 APTT 28 Seconds (21-31) 02/16/24 17:54 PTT Ratio 1.0 02/16/24 17:54 D-Dimer 2280 ug/L FEU (0-500) H* 02/16/24 17:54 Sodium 138 mmol/L (136-145) 02/16/24 17:54 Potassium 4.1 mmol/L (3.5-5.1) 02/16/24 17:54 Chloride 102 mmol/L (98-107) 02/16/24 17:54 Carbon Dioxide 27 mmol/L (21-32) 02/16/24 17:54 Anion Gap 9 (3-11) 02/16/24 17:54 BUN 12 mg/dl (6-23) 02/16/24 17:54 Creatinine 0.72 mg/dl (0.6-1.2) 02/16/24 17:54 Est Cr Clr Drug Dosing 138.3 ml/min 02/16/24 17:54 Est GFR ( Amer) 117.2 ml/min 02/16/24 17:54 Est GFR (Non-Af Amer) 101.1 ml/min 02/16/24 17:54 BUN/Creatinine Ratio 16.7 (10-20) 02/16/24 17:54 Glucose 106 mg/dl (70-99(Fasting)) H 02/16/24 17:54 Calcium 9.1 mg/dl (8.6-10.3) 02/16/24 17:54 Total Bilirubin 0.5 mg/dl (0.2-1.0) 02/16/24 17:54 AST 12 U/L (13-39) L 02/16/24 17:54 ALT 11 U/L (7-52) 02/16/24 17:54 Alkaline Phosphatase 101 U/L (34-104) 02/16/24 17:54 Troponin I High Sens 3.4 pg/ml (0-14) 02/16/24 17:54 Total Protein 7.9 gm/dl (6.0-8.3) 02/16/24 17:54 Albumin 4.4 gm/dl (3.4-5.0) 02/16/24 17:54 Globulin 3.5 gm/dl (2.5-4.0) 02/16/24 17:54 Albumin/Globulin Ratio 1.3 (0.9-2) 02/16/24 17:54 Impressions Chest X-Ray 02/16/24 18:12 XR chest 1V not portable HISTORY: 43 years-old Female Chest pain, nonspecific COMPARISON: 12/21/2023 TECHNIQUE: PA view the chest FINDINGS: Cardiac silhouette is enlarged. Small left pleural effusion with persistent left basilar consolidation. No pneumothorax or overt pulmonary edema. Bones are grossly intact. Right upper abdominal surgical clips. IMPRESSION: Small left pleural effusion with persistent left basilar consolidation suggestive of pneumonia. Similar findings were present on the 12/21/2023 exam. ACT 112: Negative or not required by law. The above report was generated using voice recognition software. It may contain grammatical, syntax or spelling errors. Electronically signed by: Nick Jon M.D. 02/16/2024 6:39 PM Chest CTA 02/16/24 20:00 Exam(s): CTA CHEST IV Amt: OPTIRAY [id number] 115ML EXAM: CT Angiography Chest With Intravenous Contrast CLINICAL HISTORY: Reason for exam: PE. TECHNIQUE: Axial computed tomographic angiography images of the chest with intravenous contrast. CTDI is 40 mGy and DLP is 790.36 mGy-cm. Automated exposure control was utilized for the study. A dose lowering technique was utilized adhering to the principles of ALARA. MIP reconstructed images were created and reviewed. COMPARISON: CT December 21, 2023 FINDINGS: Pulmonary arteries: No pulmonary embolism. Aorta: No acute findings. Normal caliber. No dissection. Lungs: Bilateral atelectasis left greater than right. Pleural space: Small left pleural effusion. Heart: Small pericardial effusion. Bones/joints: No acute fracture. Soft tissues: Unremarkable. Lymph nodes: Unremarkable. IMPRESSION: 1. No pulmonary embolism. 2. Bilateral atelectasis left greater than right. 3. Small left pleural effusion. 4. Small pericardial effusion. Electronically signed by: Angus Alberto MD 02/16/24 22:13 PM Diagnostic Findings EKG as per my interpretation : Rate 90, NSR, normal axis, nonspecific T wave abnormalities
[2024-02-16] MEDS ORDERED: PROMETHAZINE HCL 12.5 MG in SODIUM CHLORIDE 0.9% 50 ML IV PRN (23:12)
[2024-02-16] MEDS ORDERED: oxyCODONE HCL IR 5 MG TAB (IMMEDIATE RELEASE) PO PRN (23:12)
[2024-02-16] MEDS: SODIUM CHLORIDE 0.9% 1,000 ML IV STA (23:27)
[2024-02-17] MEDS ORDERED: LORazepam 0.5 MG TAB PO PRN (00:03)
[2024-02-17] MEDS ORDERED: KETOROLAC TROMETHAMINE 15 MG/ML VIAL IV PRN (00:03)
[2024-02-17 00:06] LABS: Adenovirus PCR Not Detected (NotDetected); Bordetella parapertussis PCR Not Detected (NotDetected); Bordetella pertussis PCR Not Detected (NotDetected); Chlamydia pneumoniae PCR Not Detected (NotDetected); Coronavirus 229E PCR Not Detected (NotDetected); Coronavirus CoV-2 (COVID19)PCR Not Detected (NotDetected); Coronavirus HKU1 PCR Not Detected (NotDetected); Coronavirus NL63 PCR Not Detected (NotDetected); Coronavirus OC43PCR Not Detected (NotDetected); Human Metapneumovirus PCR Not Detected (NotDetected); Influenza A PCR Not Detected (NotDetected); Influenza B PCR Not Detected (NotDetected); Mycoplasma pneumoniae PCR Not Detected (NotDetected); Parainfluenza Virus 1 PCR Not Detected (NotDetected); Parainfluenza Virus 2 PCR Not Detected (NotDetected); Parainfluenza Virus 3 PCR Not Detected (NotDetected); Parainfluenza Virus 4 PCR Not Detected (NotDetected); Respiratory Syncytial VirusPCR Not Detected (NotDetected); Rhinovirus/Enterovirus PCR Not Detected (NotDetected)
[2024-02-17 00:19] LABS: C Reactive Protein 6.36 mg/dl (0-0.5); Magnesium 1.8 mg/dl (1.7-2.4)
[2024-02-17 00:25] LABS: Troponin I High Sensitivity 3.1 pg/ml (0-14)
[2024-02-17] MEDS: KETOROLAC TROMETHAMINE 15 MG/ML VIAL IV STA (00:27)
[2024-02-17] MEDS ORDERED: TRIAMCINOLONE ACET 0.1% CR 15 GM TUBE TOP PRN (00:49)
--- NOTE | 2024-02-17 07:25 | Electrocardiogram Report ---
Test Reason : Blood Pressure : / mmHG Vent. Rate : 092 BPM Atrial Rate : 092 BPM P-R Int : 150 ms QRS Dur : 086 ms QT Int : 350 ms P-R-T Axes : 043 028 012 degrees QTc Int : 432 ms Normal sinus rhythm Nonspecific T wave abnormality Abnormal ECG When compared with ECG of 22-DEC-2023 04:18, No significant change was found Confirmed by González Gonzalez ([id number]) on 02/17/2024 7:24:57 AM Referred By: REFERRED SELF Confirmed By:González Gonzalez
--- NOTE | 2024-02-17 07:32 | Cardiology Consultation ---
<Statement entered by Kiara Maynard, - 02/17/24 10:53> I have reviewed the advanced practitioner's documentation on the date of service referenced in note, and I agree with, and take responsibility for the plan of care. Pt is 43 y/o female with PMH psoriasis arthritis on immunomodulators, prediabetic, pseudotumor cerbri. She was hospitalized with PNA back in Dec and seemed to not be getting any better. She is coughing alot and having some atypical chest pain probably chostrocontritis which is then effecting her to take a deep breath. Her echo today is normal EF and no wall motion abnormalities, no pericardial effusion appreciated-sometimes the CT Chest can over call this and no valvular pathology Pt's lipids were ok recently as an outpt Her chest pain is non-cardiac and most likely related to her PNA and chronic cough with chostrocontritis No further cardiac in patient or out pt testing necessary-she does not need the out pt echo. She is ok for discharge home from a cardiac perspective. I spent a total of [45] minutes coordinating, documenting and providing care for this patient excluding time spent in the performance of separately billed services or time spent by another provider/[facility] Date of Consultation February 17, 2024 Assessment & Plan (1) Pleural effusion: (2) Chest pain: (3) Pneumonia: Plan Patient currently admitted after having chest discomfort with concerns for pericardial effusion on CT scan Echocardiogram completed today indicates normal ejection fraction with no evidence of pericardial effusion on cardiac imaging Heart rate and blood pressure currently well-controlled Suspect she is having prolonged recovery from pneumonia given her history of Tremfya which can weaken the immune system Review her medical record through her PCP indicated recent cholesterol levels checked in May 2023 were well-controlled No additional cardiac workup necessary at this time Optimized from cardiac standpoint for discharge Case discussed with Dr. Maynard. Please see attestation for additional recommendations. I spent a total of 40 minutes on the date of service in preparation, delivery, and documentation of the care provided to the patient excluding any time spent in the performance of separately billed services. MARIBEL Kitchen Department of Cardiology, [facility] This chart was completed in part utilizing Speech Voice Recognition Software. Grammatical errors, random word insertions, pronoun errors, and incomplete sentences are an occasional consequence of this system due to software limitations, ambient noise, and hardware issues. Any formal questions or concerns about the content, text, or information contained within the body of this dictation should be directly addressed to the provider for clarification. History of Present Illness Reason for Consultation: Pericarditis/Pericardial effusion Requesting Physician: Kym Jordanist Attending Physician: Jeremy Foote MD History of Present Illness 43-year-old female seen in consultation today in regard to pericardial effusion. She presented to the emergency room yesterday after having developed chest pain lasting for several hours prior to presentation. She woke up around 2 AM with the discomfort which had persisted throughout the day. Described as a right-sided discomfort that does not radiate. Has had a cough and associated shortness of breath that felt somewhat similar to an issue she had in December earlier this year when she was diagnosed with pneumonia. She has a known past medical history of psoriatic arthritis, obesity, pseudotumor cerebri, and fatty liver disease. She was recently evaluated by rheumatology and was subsequently taken off of Tremfya and placed on Cymbalta for psoriatic arthritis. Has had some difficulty losing weight due to chronic pain secondary to her psoriatic arthritis. Allergies Allergy/AdvReac Type Severity Reaction Status Date / Time Sulfa (Sulfonamide Allergy Unknown Rash Verified 02/15/24 11:12 Antibiotics) Home Medications Medication Instructions Recorded Confirmed Type semaglutide 0.25 mg or 0.5 mg (2 1 mg subcut WK 07/03/23 02/16/24 History mg/3 mL) subcutaneous pen injector (Ozempic) desonide 0.05 % topical ointment 1 applic topical .COMPLEX 07/05/23 02/16/24 History guselkumab 100 mg/mL subcutaneous 100 mg subcut .COMPLEX #1 mL 01/03/24 02/16/24 Rx syringe (Tremfya) betamethasone dipropionate 0.05 % 1 applic topical DAILY PRN flaring 02/16/24 02/16/24 History lotion duloxetine 30 mg capsule,delayed 30 mg PO UD 02/16/24 02/16/24 History release (Cymbalta) mometasone 0.1 % topical cream 1 applic topical BID PRN flaring 02/16/24 02/16/24 History Patient History Medical History History of COVID-19 10/2021- no hosp, resolved Psoriatic arthritis Obesity, morbid, BMI 40.0-49.9 on ozempic weekly Pseudotumor cerebri monitored Fatty liver Surgical History S/P cholecystectomy S/P tubal ligation History of section X 2 History of wisdom tooth extraction Family History Grandfather (Paternal) Colorectal cancer, Onset Age: 63 Mother Breast cancer Grandmother (Maternal) Breast cancer Aunt Breast cancer multiple maternal aunts Denies family history of Ovarian cancer Uterine cancer Social History Smoking Status: Former smoker Tobacco Type: Cigarettes Second Hand Exposure: Yes ( A CHILD); Do You Dip or Chew Tobacco: No; Hx Alcohol Use: Yes Alcohol type: hard liquor Hx Substance Use: No Preferred Language: Finnish Communication Ability: Effective Visual Impairment: No Limitations 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 Beliefs That Will Affect Care: None Current Living Situation: Family Current Living Situation Comment: AND CHILDREN Feels Safe at Home: Yes Safety Concerns: Feels Safe At This Time Assistive Devices: None Review of Systems Constitutional: + body aches; no fever and no chills Respiratory: + dyspnea on exertion Cardiovascular: + chest pain; no syncope and no edema Gastrointestinal: no abdominal pain, no vomiting and no constipation Musculoskeletal: + body aches Integumentary: no rash and no lesions Physical Exam Constitutional: well developed and well nourished; no acute distress Eyes: PERRL, conjunctivae normal, anicteric sclerae Neck: trachea midline, no thyromegaly Respiratory: normal respiratory effort, lungs clear to auscultation no respiratory distress Cardiovascular: Rate/Rhythm: regular rate and regular rhythm Heart Sounds: normal S1 and normal S2; no murmur Vessels: no JVD and no carotid bruit Extremities: no edema Gastrointestinal (Abdomen): normal bowel sounds, soft, nontender, no hepatosplenomegaly Skin: no rashes, warm and dry Psychiatric: A+Ox3, euthymic affect Results & Data Vital Signs (Past 12 Hours) Vital Signs Temp Pulse Pulse Resp BP BP Pulse Ox 02/17/24 03:00 36.5 C 82 18 137/79 95 04/06/24 01:01 02/17/24 00:44 36.8 C 81 16 120/83 94 02/17/24 00:00 85 20 140/78 95 02/16/24 23:30 83 24 128/77 96 02/16/24 23:08 83 20 110/64 95 02/16/24 23:07 81 23 110/64 94 02/16/24 23:00 02/16/24 23:00 36.8 C 02/16/24 23:00 85 23 94 02/16/24 22:50 87 22 94 02/16/24 22:40 86 28 H 93 02/16/24 22:30 84 21 96 02/16/24 22:20 81 21 95 02/16/24 22:10 88 22 93 02/16/24 22:00 86 22 95 02/16/24 21:56 81 18 94 02/16/24 21:55 83 02/16/24 21:29 84 20 94 02/16/24 21:29 90 02/16/24 21:00 36.7 C 89 22 120/75 90 O2 Del Method O2 Flow Rate 02/17/24 03:00 Room Air 02/17/24 01:01 Room Air 02/17/24 00:44 Room Air 02/17/24 00:00 Room Air 02/16/24 23:30 Room Air 02/16/24 23:08 Nasal Cannula 2 02/16/24 23:07 Room Air 02/16/24 23:00 Room Air 02/16/24 23:00 02/16/24 23:00 02/16/24 22:50 02/16/24 22:40 02/16/24 22:30 02/16/24 22:20 02/16/24 22:10 02/16/24 22:00 02/16/24 21:56 02/16/24 21:55 02/16/24 21:29 Nasal Cannula 2 02/16/24 21:29 Room Air 0 02/16/24 21:00 Room Air Laboratory Results Cardiac Enzymes 02/16/24 02/16/24 Range/Units 17:54 23:36 AST 12 L (13-39) U/L Troponin I High Sens 3.4 3.1 (0-14) pg/ml Coagulation 02/16/24 Range/Units 17:54 PT 10.5 (9.0-12.0) Seconds APTT 28 (21-31) Seconds CBC 02/16/24 Range/Units 17:54 WBC 9.46 (4.8-10.8) K/ul RBC 4.47 (4.20-5.40) M/uL Hgb 11.8 L (12.0-16.0) g/dl Hct 37.7 (37.0-47.0) % Plt Count 349 (130-400) K/uL Neut # (Auto) 7.21 H (1.40-6.50) K/uL Lymph # (Auto) 1.60 (1.20-3.40) K/uL [place] # (Auto) 0.42 (0.11-0.59) K/uL Eos # (Auto) 0.14 (0.00-0.50) K/uL Baso # (Auto) 0.05 (0.00-0.20) K/uL Comprehensive Metabolic Panel 02/16/24 Range/Units 17:54 Sodium 138 (136-145) mmol/L Potassium 4.1 (3.5-5.1) mmol/L Chloride 102 (98-107) mmol/L Carbon Dioxide 27 (21-32) mmol/L BUN 12 (6-23) mg/dl Creatinine 0.72 (0.6-1.2) mg/dl Glucose 106 H (70-99(Fasting)) mg/dl Calcium 9.1 (8.6-10.3) mg/dl AST 12 L (13-39) U/L ALT 11 (7-52) U/L Alkaline Phosphatase 101 (34-104) U/L Total Protein 7.9 (6.0-8.3) gm/dl Albumin 4.4 (3.4-5.0) gm/dl Intake and Output 02/16/24 02/17/24 02/17/24 22:59 06:59 14:59 Intake Total 50 / 50 Balance 50 / 50 Intake: IV 50 / 50 cefTRIAXone SODIUM 2,000 mg In 50 / 50 50 ml @ 100 mls/hr IV NOW STA Rx#:[id number] Other: Weight 136.4 kg 137.3 kg Weight Measurement Method Standing Scale Diagnostic Findings Chest CT 02/16/24 IMPRESSION: 1. No pulmonary embolism. 2. Bilateral atelectasis left greater than right. 3. Small left pleural effusion. 4. Small pericardial effusion. CXR 02/16/24 IMPRESSION: Small left pleural effusion with persistent left basilar consolid ation suggestive of pneumonia. Similar findings were present on the 12/21/2023 exam. Medications Administered Current Inpatient Medications Acetaminophen (Acetaminophen 325 Mg Tab) 650 mg PO QID PRN PRN Reason: pain/fever Stop: 03/17/24 23:11 Duloxetine HCl (Duloxetine Hcl 30 Mg Cap) 30 mg PO QAM BARB Stop: 03/18/24 08:59 Enoxaparin Sodium (Enoxaparin Inj 40 Mg/0.4 Ml Syr) 40 mg SQ QAM BARB Stop: 03/18/24 08:59 Sodium Chloride (Nss) 1,000 mls @ 60 mls/hr IV .[id number] STA Stop: 02/17/24 15:56 Last Admin: 02/16/24 23:27 Dose: 60 mls/hr Promethazine HCl 12.5 mg/ (Sodium Chloride) 50.5 mls @ 202 mls/hr IV Q6H PRN PRN Reason: Nausea And Vomiting Stop: 03/17/24 23:11 Ketorolac Tromethamine (Ketorolac Tromethamine 15 Mg/Ml Vial) 15 mg IV Q6H PRN PRN Reason: Pain Stop: 02/22/24 00:02 Lorazepam (Lorazepam 0.5 Mg Tab) 0.5 mg PO TID PRN PRN Reason: Anxiety Stop: 03/18/24 00:02 Oxycodone HCl (Oxycodone Hcl Ir 5 Mg Tab (Immediate Release)) 5 - 10 mg PO QID PRN PRN Reason: Pain Stop: 03/01/24 23:11 Triamcinolone Acetonide (Triamcinolone Acet 0.1% Cr 15 Gm Tube) 1 appln TOP BID PRN PRN Reason: flaring Stop: 03/18/24 00:48 (2) Chest pain Chest pain type: unspecified Qualified Code(s): R07.9 - Chest pain, unspecified (3) Pneumonia Laterality: left Lung location: lower lobe of lung Pneumonia type: due to unspecified organism Qualified Code(s): J18.9 - Pneumonia, unspecified organism
[2024-02-17] MEDS: ACETAMINOPHEN 325 MG TAB PO PRN (08:03)
[2024-02-17] MEDS: ENOXAPARIN INJ 40 MG/0.4 ML SYR SQ SCH (08:04)
[2024-02-17] MEDS: DULoxetine HCL 30 MG CAP PO SCH (08:04)
--- OUTSIDE RECORDS SUMMARY | 2024-02-17 08:24 | External Medical Summary ---
Author Name Unknown Address Unknown Organization K09:[facility] [address] [place] [address] Laboratory Report Ordering Provider Test Date Status KEATON,DOWILNER 02/16/2024 11:45:24 Final Observation Date Value Abnormality Reference (Units ) Status BUN 02/16/2024 11:45:24 13 6-20 (mg/dL) Final Creatinine 02/16/2024 11:45:24 0.7 0.5-1.0 (mg/dL) Final Glomerular filtration rate/1.73 sq M.predicted [Volume Rate/Area] in Serum, Plasma or Blood by Creatinine-based formula (CKD-EPI) 02/16/2024 11:45:24 >90 >=60 (mL/min) Final eGFR is calculated based on the CKD-EPI 2020 equation Sodium 02/16/2024 11:45:24 141 135-146 (m mol/L) Final Potassium 02/16/2024 11:45:24 4.5 3.5-5.1 (m mol/L) Final Cl 02/16/2024 11:45:24 102 98-107 (mm ol/L) Final CO2 02/16/2024 11:45:24 24 22-32 (mmo l/L) Final Anion gap 02/16/2024 11:45:24 15 7-15 (mmol /L) Final Glucose 02/16/2024 11:45:24 104 70-120 (mg /dL) Final Albumin 02/16/2024 11:45:24 4.3 3.8-5.0 (g /dL) Final AST (Aspartate aminotransferase) 02/16/2024 11:45:24 15 10-35 (U/L) Final Result may be falsely elevat ed due to hemolysis. Alk Phos 02/16/2024 11:45:24 118 35-130 (U/ L) Final Bilirubin, Total 02/16/2024 11:45:24 0.3 <=1 .2 (mg/dL) Final Calcium 02/16/2024 11:45:24 9.3 8.4-10.2 ( mg/dL) Final Protein 02/16/2024 11:45:24 7.5 6.0-8.3 (g /dL) Final ALT (Alanine aminotransferase) 02/16/2024 11:45:24 12 10-35 (U/L) Final Performing Location [facility] [address] [place] [address]
--- OUTSIDE RECORDS SUMMARY | 2024-02-17 08:24 | External Medical Summary ---
Author Name Unknown Address Unknown Organization K09[facility] [place] [address] Laboratory Report Ordering Provider Test Date Status ANALI PUGH 02/16/2024 11:45:24 Final Observation Date Value Abnormality Reference (Units ) Status WBC, Total 02/16/2024 11:45:24 7.71 4.00-10.8 0 (K/uL) Final RBC 02/16/2024 11:45:24 4.64 3.85-5.15 (M/uL) Final Hemoglobin 02/16/2024 11:45:24 12.3 12.0-15.3 (g/dL) Final HCT 02/16/2024 11:45:24 40.1 36.0-45.2 (%) Final MCV 02/16/2024 11:45:24 86.4 81.5-97.5 (fL) Final MCH 02/16/2024 11:45:24 26.5 27.0-34.0 (pg) Final MCHC 02/16/2024 11:45:24 30.7 32.0-36.0 (g/dL) Final RDW 02/16/2024 11:45:24 14.3 11.5-15.5 (%) Final Platelets 02/16/2024 11:45:24 344 140-400 (K /uL) Final MPV 02/16/2024 11:45:24 9.4 6.6-11.1 ( fL) Final Performing Location [facility] [place] [address]
--- OUTSIDE RECORDS SUMMARY | 2024-02-17 08:24 | External Medical Summary ---
Author Name Unknown Address Unknown Organization K09:[facility] [place] [address] Laboratory Report Ordering Provider Test Date Status ANALI PUGH 02/16/2024 11:45:24 Final Observation Date Value Abnormality Reference (Units ) Status Phosphate 02/16/2024 11:45:24 4.1 2.5-4.8 (m g/dL) Final Performing Location [facility] [place] [address]
--- OUTSIDE RECORDS SUMMARY | 2024-02-17 08:24 | External Medical Summary | Summary of Care ---
Author Name Unknown Organization [facility] Address [address] [place] [place] [place] [address] Phone [phone] Care Team Providers Care Neighborhood Worker Name Role Phone Usama Block MD Primary Care Provider + Reason for Visit * Reason Comments Outpatient Testing Encounter Details Date Type Department Care Team (Late st Contact Info) Description 02/16/2024 11:50 AM EDT Laboratory Laboratory [facility] [place] [address] [place] [id number] [facility] [address] [facility] [place] [address] Elevated uric acid in blood; Elevated glucose; Pneumonia Allergies Active Allergy Reactions Criticality Noted Date Comments Sulfa Antibiotics 01/17/2003 leg cramps,rash as a child documented as of this encounter (statuses as of 02/16/2024) Medications Medication Sig Dispensed Refills Start Date End Date Status PROBIOTIC PO CAPS 1 tablet daily 0 Act abdirashid Loratadine 10 MG Oral Tablet Take 1 Tablet by mouth in the morning. 30 Tab 11 04/14/2020 Active Tremfya 100 MG/ML Subcutaneous Solution Pen-injector every 8 weeks. Last shot was 11/18/22. 0 04/19/2022 Active Mometasone Furoate 50 MCG/ACT Nasal SuspensionIndications :Acute non-recurrent maxillary sinusitis Administer 2 Sprays into nostril in the morning. 18 g 0 10/29/2022 Active Ozempic (1 MG/DOSE) 4 MG/3ML Subcutaneous Solution Pen-injector (Semaglutide (1 MG/DOSE)) Inject 1 mg under the skin once a week. 9 mL 0 09/05/2023 Active Cefdinir 300 MG Oral Capsule (Omnicef) Take 1 Capsule by mouth in the morning and 1 Capsule before bedtime. For 6 days. 0 12/23/2023 Active Etodolac 400 MG Oral Tablet Take 1 Tablet by mouth in the morning and 1 Tablet before bedtime. 0 Active documented as of this encounter (statuses as of 02/16/2024) Active Problems Problem Noted Date Diagnosed Date Plaque psoriasis 03/14/2023 Obesity, morbid (more than 1 00 lbs over ideal weight or BMI > 40) 03/19/2019 Enlarged adenoids 03/19/2019 Deviated nasal septum 02/04/2019 Hypertrophy of both inferior nasal turbinates Pseudotumor cerebri Overview: followed by Dr Bernabe Papilledema Overview: followed by Dr Frantz Lema documented as of this encounter (statuses as of 02/16/2024) Resolved Problems Problem Noted Date Diagnosed Date [...] Supervision of other high-risk 06/15/2009 01/18/2010 Overview: MFM consult ordered re: h/o pseudotumor cerebri and papilledema for further recommendations- M recommendations:Repeat evaluation in 7-8 weeks for second trimester screening sonography and recommend quad serum screening between 15-22 wks gestation (pt declines). Patient received flu vaccine. 08/13/2009 Julia Brown RN Patient received H1N1 vaccine. 09/11/2009 Dayanara Mancilla RN ICD-10 update of inactive term Normal , first 12/09/2003 08/0 01/2009 NONE 11/11/2003 05/29/2009 Encounter for supervision of other normal 11/11/2003 06/15/2009 Overview: ICD-10 update of inactive term documented as of this encounter (statuses as of 02/16/2024) Immunizations Name Administration Dates Next Due COVID-19 mRNA, LNP-s, No Pre serve, 2-Dose Series (Recombine) 03/31/2021,03/10/2021 H1N1 2009 Influenza, IM 09/11/2009 Hepatitis B, 20+ yrs [...] Date Smoking Tobacco: Former Cigarettes 0.5 8 0 07/14/2006 - 07/14/2014 Smokeless Tobacco: Never Alcohol Use Standard [...] on file documented as of this encounter Plan of Treatment Upcoming Encounters Date Type Department Care Team (Late st Contact Info) Description 02/27/2024 8:30 AM EDT Cardiac Studies Cardiac Studies, [facility] [address] [place] [address] 05/30/2024 10:00 AM EDT Office Visit General Internal Medicine [facility] [address] [facility] [address] [place] [address] Usama Block MD [address] [facility] [place] [id number] Pending Results Name Type Priority Associated Diagnoses Date /Time URIC ACID Lab Routine Elevated uric acid in blood 02/16/2024 11:45 AM EDT CRP (INFLAMMATORY MARKER) Lab Routine Elevated uric acid in blood 02/16/2024 11:45 AM EDT COMPREHENSIVE METABOLIC PANEL Lab Routine Elevated uric acid in blood 02/16/2024 11:45 AM EDT HEMOGLOBIN A1C Lab Routine Elevated glucose 02/16/2024 11:45 AM EDT MAGNESIUM Lab Routine Pneumonia 02/16/2024 11:45 AM EDT PHOSPHORUS Lab Routine Pneumonia 02/16/2024 11:45 AM EDT Health Maintenance Due Date Last Done Comments HPV/Co-Test 2008 Cervical Cancer Screening 05/22/2022 Pap Smear 05/22/2022 05/22/2019, 03/0 01/2016, 07/10/2014, Additional history exists COVID-19 Vaccine ( season) 2023 03/31/2021, 03/10/2021 Cologuard 2023 Colonoscopy 2023 Colorectal Cancer Screening [...] Not on filedocumented as of this encounter Procedures Procedure Name Priority Date/Time Associated Diagnosis Comments CBC Routine 02/16/2024 11:45 AM EDT Pneumonia documented in this encounter Results * CBC (02/16/2024 11:45 AM EDT) WBC 7.71 4.00 - 10.80 K/uL 02/16/2024 11:53 AM EDT [facility] [place] [facility]02 RBC 4.64 3.85 - 5.15 M/uL 02/16/2024 11:53 AM EDT [facility] [place] [facility]-02 HGB 12.3 12.0 - 15.3 g/dL 02/16/2024 11:53 AM EDT [facility] [place] [facility]-02 HCT 40.1 36.0 - 45.2 % 02/16/2024 11:53 AM EDT [facility] [place] [facility]-02 MCV 86.4 81.5 - 97.5 fL 02/16/2024 11:53 AM EDT [facility] [place] [facility]-02 MCH 26.5 27.0 - 34.0 pg 02/16/2024 11:53 AM EDT [facility] [place] [facility]-02 MCHC 30.7 32.0 - 36.0 g/dL 02/16/2024 11:53 AM EDT [facility] RDW 14.3 11.5 - 15.5 % 02/16/2024 11:53 AM EDT [facility] 56 PLT 344 140 - 400 K/uL 02/16/2024 11:53 AM EDT [facility] 56 MPV 9.4 6.6 - 11.1 fL 02/16/2024 11:53 AM EDT [facility] Blood Venous blood specimen / Unknown Venipuncture / Unknown 02/16/2024 11:45 AM EDT 02/16/2024 11:45 AM EDT Usama Block MD LAB BLOOD ORDERA BLES [facility] [address] [facility] [place] [id number] documented in this encounter Visit Diagnoses Diagnosis Elevated uric acid in blood Other abnormal blood chemistry Elevated glucose Other abnormal glucose Pneumonia Pneumonia, organism unspecified documented in this encounter Care Teams Neighborhood Worker Relationship Specialty Start Date End Date Usama Block MD [address] [facility] [place] [address] PCP - General Internal Medicine 06/08/22 documented as of this encounter
--- OUTSIDE RECORDS SUMMARY | 2024-02-17 08:24 | External Medical Summary ---
Author Name Unknown Address Unknown Organization [id number]:[facility] [place] [address] Laboratory Report Ordering Provider Test Date Status ANALI PUGH 02/16/2024 11:45:24 Final Observation Date Value Abnormality Reference (Units ) Status Magnesium 02/16/2024 11:45:24 2.0 1.5-2.6 (m g/dL) Final Performing Location [facility] [place] [address]
--- OUTSIDE RECORDS SUMMARY | 2024-02-17 09:28 | External Medical Summary ---
Author Name Unknown Address Unknown Organization [id number]:[facility] - [address] [place] [address] Laboratory Report Ordering Provider Test Date Status ANALI PUGH 02/16/2024 11:45:24 Final Observation Date Value Abnormality Reference (Units ) Status CRP, low-sensitivity 02/16/2024 11:45:24 45 Above high normal <=5 (mg/L) Final Performing Location [facility] - [address] [place] [address]
--- OUTSIDE RECORDS SUMMARY | 2024-02-17 09:28 | External Medical Summary ---
Author Name Unknown Address Unknown Organization [id number][facility] [place] [address] [place] [address] Laboratory Report Ordering Provider Test Date Status ANALI PUGH 02/16/2024 11:45:24 Final Observation Date Value Abnormality Reference (Units ) Status HbA1C 02/16/2024 11:45:24 6.0 Above high normal 4. 0-5.6 (%) Final The use of HbA1c to monitor glycemic status is based on normal hemoglobin and HbA composition. This test should not be used in patients with abnormal hemoglobin that affects the half life of the red blood cell or the in vivo glycation rates. Glucose, estimated average 02/16/2024 11:45:24 126 Above high normal <126 (mg/dL) Ej colunga Performing Location [facility] [place] [address] [place] [address]
--- OUTSIDE RECORDS SUMMARY | 2024-02-17 09:28 | External Medical Summary ---
Author Name Unknown Address Unknown Organization [id number]:[facility] [address] [place] [address] Laboratory Report Ordering Provider Test Date Status ANALI PUGH 02/16/2024 11:45:24 Final Observation Date Value Abnormality Reference (Units ) Status Uric Acid 02/16/2024 11:45:24 5.3 2.4-5.7 (m g/dL) Final Performing Location [facility] [place] [address] [place] [address]
--- NOTE | 2024-02-17 11:47 | Electrocardiogram Report ---
Test Reason : Blood Pressure : / mmHG Vent. Rate : 075 BPM Atrial Rate : 075 BPM P-R Int : 166 ms QRS Dur : 092 ms QT Int : 404 ms P-R-T Axes : 042 057 020 degrees QTc Int : 451 ms Normal sinus rhythm with sinus arrhythmia Nonspecific T wave abnormality Abnormal ECG When compared with ECG of 16-FEB-2024 18:48, No significant change was found Confirmed by González Gonzalez ([id number]) on 02/17/2024 11:46:51 AM Referred By: REFERRED SELF Confirmed By:González Gonzalez
--- NOTE | 2024-02-17 14:56 | Hospitalist Progress Note ---
Date of Service February 17, 2024 Assessment & Plan (1) Chest pain: Plan: 43-year-old female with history of psoriatic arthritis, etc. presenting with acute right-sided chest pain, etc. ATYPICAL CHEST PAIN, LIKELY COSTOCHONDRITIS Troponins negative, EKG no signs of acute ischemia or infarct Acute coronary syndrome ruled CT chest: FINDINGS: Pulmonary arteries: No pulmonary embolism. Aorta: No acute findings. Normal caliber. No dissection. Lungs: Bilateral atelectasis left greater than right. Pleural space: Small left pleural effusion. Heart: Small pericardial effusion. Bones/joints: No acute fracture. Soft tissues: Unremarkable. Lymph nodes: Unremarkable. IMPRESSION: 1. No pulmonary embolism. 2. Bilateral atelectasis left greater than right. 3. Small left pleural effusion. 4. Small pericardial effusion. Initial thought process was possible pericarditis Target Worker consulted - Dr Sanchez Echocardiogram: Normal EF, no wall motion abnormalities, no pericardial effusion appreciated, no valvular pathologies As per cardiology service, chest pain noncardiac, most likely related to pneumonia, chronic cough with costochondritis No further cardiac testing indicated CT chest personally reviewed Showing small to moderate left-sided pleural effusion, persistent infiltrates Recommended pulmonology evaluation, patient prefers to have this done as an outpatient She denies fever, left-sided chest pain, shortness of breath at home She has no leukocytosis Please refer to pulmonology for further evaluation of persistent chest infiltrate and small to moderate left-sided pleural effusion in setting of recent pneumonia hx psoriatic arthritis on Tremfya, patient to start recent Cymbalta prescription from grain trader hx pseudotumor cerebri prediabetes, hemoglobin A1c of 6.3 couple of months ago past tobacco abuse. Disposition PCP follow-up in 1 week Please refer to social economist plan of care discussed with patient in detail and at length all questions answered she is understanding, agreeable, comfortable with the plan of care Admission and Anticipated Discharge Date Admission Date: February 16, 2024 Subjective Follow-up for chest pain, etc. Seen resting in bed, sitting up, comfortable, not in distress States she feels much better today Right-sided localized chest pain has completely resolved No shortness of breath, cough, fevers or chills Ambulating in the room with no problems No other new symptoms States she would like to be discharged today Discussed findings on the CAT scan including pleural effusion, infiltrates Discussed recommendation to consult pulmonology, but she may not be evaluated till tomorrow Patient prefers to follow-up as an outpatient Emphasized to patient to seek medical attention, call PCP or return to the ER if with shortness of breath, recurrence of chest pain, fevers or chills, Patient verbalized understanding and agreement Review of Systems Review of Systems: all noted and negative except for above Physical Exam Physical Exam: General- oriented x 3, not in distress, speaks in sentences with no effort or accessory muscle use Eyes- anicteric Neck- no JVD Lungs- clear breath sounds bilaterally, no rales/wheezes Heart- normal rate, regular rhythm; no murmurs Abdomen- normal bowel sounds, nondistended, soft, nontender Extremities- no pretibial edema, no calf tenderness Neuro- alert, oriented x 3; no gross focal neurologic deficits Skin- warm & dry Results & Data Results & Data Vital Signs (Past 12 Hours) Vital Signs Temp Pulse Pulse Resp BP Pulse Ox O2 Del Method 02/17/24 11:07 36.7 C 76 17 139/87 90 Room Air 02/17/24 08:00 72 02/17/24 08:00 Room Air 02/17/24 07:56 36.6 C 84 18 156/85 H 93 Room Air 02/17/24 03:00 36.5 C 82 18 137/79 95 Room Air all noted and reviewed including below (1) Chest pain Chest pain type: unspecified Qualified Code(s): R07.9 - Chest pain, unspecified
--- NOTE | 2024-02-17 15:09 | Discharge Summary ---
Discharge Summary Date of Service February 17, 2024 Notes For Next Care Provider Medication Changes From Visit None Admission HPI Per Admitting Provider History obtained from patient and records. Medical history significant for psoriatic arthritis on Tremfya, pseudotumor cerebri, prediabetes, obesity on Ozempic, past tobacco abuse. Last confinement 2 months ago for respiratory failure secondary to community- acquired pneumonia. Patient found to be prediabetic with hemoglobin A1c of 6.3. Patient discharged on azithromycin course. This morning, patient woke up with pleuritic right-sided chest pain with shortness of breath. No unusual cough symptoms. Denies fluid retention. Not sure about sick contacts. No prior episodes as per patient. Outpatient x-ray done showed There is an infiltrate in the left mid lung. Small left pleural effusion. No pneumothorax. Mild cardiomegaly. Patient directed to ER by PCP for further evaluation. IV ceftriaxone given at the ER. 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 Admission Exam Per Admitting Provider GENERAL: Pleasant, morbidly obese, no respiratory distress SKIN: Normal color, warm HEENT: Bespectacled, [place] palpebral conjunctivae, no ptosis, moist buccal mucosa NECK : Supple, short neck, no tenderness CHEST : Decreased breath sounds, no tenderness HEART : RRR, no obvious murmurs ABDOMEN: Some distention, nontender EXTREMITIES : Minimal LE swelling, no LE tenderness, no other conspicuous deformities noted NEUROLOGIC : Coherent, no facial asymmetry, no other gross focality Principal Dx & Hospital Course #1 = Principal Diagnosis (1) Chest pain: 43-year-old female with history of psoriatic arthritis, etc. presenting with acute right-sided chest pain, etc. ATYPICAL CHEST PAIN, LIKELY COSTOCHONDRITIS Troponins negative, EKG no signs of acute ischemia or infarct Acute coronary syndrome ruled CXR: IMPRESSION: Small left pleural effusion with persistent left basilar consolidation suggestive of pneumonia. Similar findings were present on the 12/21/[address] chest: FINDINGS: Pulmonary arteries: No pulmonary embolism. Aorta: No acute findings. Normal caliber. No dissection. Lungs: Bilateral atelectasis left greater than right. Pleural space: Small left pleural effusion. Heart: Small pericardial effusion. Bones/joints: No acute fracture. Soft tissues: Unremarkable. Lymph nodes: Unremarkable. IMPRESSION: 1. No pulmonary embolism. 2. Bilateral atelectasis left greater than right. 3. Small left pleural effusion. 4. Small pericardial effusion. Initial thought process was possible pericarditis Storm Sash Maker consulted - Dr Sanchez Echocardiogram: Normal EF, no wall motion abnormalities, no pericardial effusion appreciated, no valvular pathologies As per cardiology service, chest pain noncardiac, most likely related to pneumonia, chronic cough with costochondritis No further cardiac testing indicated CT chest personally reviewed Showing small left-sided pleural effusion, persistent infiltrates Recommended pulmonology evaluation, patient prefers to have this done as an outpatient She denies fever, left-sided chest pain, shortness of breath at home She has no leukocytosis Please refer to pulmonology for further evaluation of persistent chest infiltrate and small left-sided pleural effusion in setting of recent pneumonia hx psoriatic arthritis on Tremfya, patient to start recent Cymbalta prescription from hide dyer hx pseudotumor cerebri prediabetes, hemoglobin A1c of 6.3 couple of months ago past tobacco abuse. Disposition PCP follow-up in 1 week Please refer to donor services specialist plan of care discussed with patient in detail and at length all questions answered she is understanding, agreeable, comfortable with the plan of care Discharge Exam General- oriented x 3, not in distress, speaks in sentences with no effort or accessory muscle use Eyes- anicteric Neck- no JVD Lungs- clear breath sounds bilaterally, no rales/wheezes Heart- normal rate, regular rhythm; no murmurs Abdomen- normal bowel sounds, nondistended, soft, nontender Extremities- no pretibial edema, no calf tenderness Neuro- alert, oriented x 3; no gross focal neurologic deficits Skin- warm & dry Updated Medication List Medication Instructions Recorded Confirmed Type semaglutide 0.25 mg or 0.5 mg (2 1 mg subcut WK 07/03/23 02/16/24 History mg/3 mL) subcutaneous pen injector (Ozempic) desonide 0.05 % topical ointment 1 applic topical .COMPLEX 07/05/23 02/16/24 History guselkumab 100 mg/mL subcutaneous 100 mg subcut .COMPLEX #1 mL 01/03/24 02/16/24 Rx syringe (Tremfya) betamethasone dipropionate 0.05 % 1 applic topical DAILY PRN flaring 02/16/24 02/16/24 History lotion duloxetine 30 mg capsule,delayed 30 mg PO UD 02/16/24 02/16/24 History release (Cymbalta) mometasone 0.1 % topical cream 1 applic topical BID PRN flaring 02/16/24 02/16/24 History Hospital Stay Data Consultations 02/17/24 00:03 Consult Cardiology Routine Diagnostic Imagining Performed Laboratory Results WBC 9.46 K/ul (4.8-10.8) 02/16/24 17:54 RBC 4.47 M/uL (4.20-5.40) 02/16/24 17:54 Hgb 11.8 g/dl (12.0-16.0) L 02/16/24 17:54 Hct 37.7 % (37.0-47.0) 02/16/24 17:54 MCV 84.3 fL (80.0-100.0) 02/16/24 17:54 MCH 26.4 pg (25.0-34.0) 02/16/24 17:54 MCHC 31.3 g/dL (32.0-36.0) L 02/16/24 17:54 RDW Std Deviation 42.8 fL (36.4-46.3) 02/16/24 17:54 RDW Coeff of Tangela 14.0 % (11.5-14.5) 02/16/24 17:54 Plt Count 349 K/uL (130-400) 02/16/24 17:54 MPV 9.6 fL (9.4-12.4) 02/16/24 17:54 Immature Gran % (Auto) 0.4 % 02/16/24 17:54 Neut % (Auto) 76.3 % 02/16/24 17:54 Lymph % (Auto) 16.9 % 02/16/24 17:54 Emmet % (Auto) 4.4 % 02/16/24 17:54 Eos % (Auto) 1.5 % 02/16/24 17:54 Baso % (Auto) 0.5 % 02/16/24 17:54 Neut # (Auto) 7.21 K/uL (1.40-6.50) H 02/16/24 17:54 Lymph # (Auto) 1.60 K/uL (1.20-3.40) 02/16/24 17:54 Emmet # (Auto) 0.42 K/uL (0.11-0.59) 02/16/24 17:54 Eos # (Auto) 0.14 K/uL (0.00-0.50) 02/16/24 17:54 Baso # (Auto) 0.05 K/uL (0.00-0.20) 02/16/24 17:54 Immature Gran # (Auto) 0.04 K/uL (0.01-0.20) 02/16/24 17:54 ESR 16 mm/hr (0-20) 02/16/24 23:36 PT 10.5 Seconds (9.0-12.0) 02/16/24 17:54 INR 1.0 (0.9-1.1) 02/16/24 17:54 APTT 28 Seconds (21-31) 02/16/24 17:54 PTT Ratio 1.0 02/16/24 17:54 D-Dimer 2280 ug/L FEU (0-500) H* 02/16/24 17:54 Sodium 138 mmol/L (136-145) 02/16/24 17:54 Potassium 4.1 mmol/L (3.5-5.1) 02/16/24 17:54 Chloride 102 mmol/L (98-107) 02/16/24 17:54 Carbon Dioxide 27 mmol/L (21-32) 02/16/24 17:54 Anion Gap 9 (3-11) 02/16/24 17:54 BUN 12 mg/dl (6-23) 02/16/24 17:54 Creatinine 0.72 mg/dl (0.6-1.2) 02/16/24 17:54 Est Cr Clr Drug Dosing 138.3 ml/min 02/16/24 17:54 Est GFR ( Amer) 117.2 ml/min 02/16/24 17:54 Est GFR (Non-Af Amer) 101.1 ml/min 02/16/24 17:54 BUN/Creatinine Ratio 16.7 (10-20) 02/16/24 17:54 Glucose 106 mg/dl (70-99(Fasting)) H 02/16/24 17:54 Calcium 9.1 mg/dl (8.6-10.3) 02/16/24 17:54 Magnesium 1.8 mg/dl (1.7-2.4) 02/16/24 23:36 Total Bilirubin 0.5 mg/dl (0.2-1.0) 02/16/24 17:54 AST 12 U/L (13-39) L 02/16/24 17:54 ALT 11 U/L (7-52) 02/16/24 17:54 Alkaline Phosphatase 101 U/L (34-104) 02/16/24 17:54 Troponin I High Sens 3.1 pg/ml (0-14) 02/16/24 23:36 C-Reactive Protein 6.36 mg/dl (0-0.5) H 02/16/24 23:36 Total Protein 7.9 gm/dl (6.0-8.3) 02/16/24 17:54 Albumin 4.4 gm/dl (3.4-5.0) 02/16/24 17:54 Globulin 3.5 gm/dl (2.5-4.0) 02/16/24 17:54 Albumin/Globulin Ratio 1.3 (0.9-2) 02/16/24 17:54 Adenovirus (PCR) Not Detected (NotDetected) 02/16/24 22:37 B. pertussis DNA (PCR) Not Detected (NotDetected) 02/16/24 22:37 B.parapertussis DNA PCR Not Detected (NotDetected) 02/16/24 22:37 Lyme Disease Screen Negative (Negative) 02/16/24 23:36 C. pneumoniae DNA (PCR) Not Detected (NotDetected) 02/16/24 22:37 Coronavirus OC43 (PCR) Not Detected (NotDetected) 02/16/24 22:37 Coronavirus HKU1 (PCR) Not Detected (NotDetected) 02/16/24 22:37 Coronavirus 229E (PCR) Not Detected (NotDetected) 02/16/24 22:37 SARS-CoV-2 (PCR) Not Detected (NotDetected) 02/16/24 22:37 Coronavirus NL63 (PCR) Not Detected (NotDetected) 02/16/24 22:37 Human Metapneumovir PCR Not Detected (NotDetected) 02/16/24 22:37 Influenza Type A (PCR) Not Detected (NotDetected) 02/16/24 22:37 Influenza Type B (PCR) Not Detected (NotDetected) 02/16/24 22:37 M. pneumoniae (PCR) Not Detected (NotDetected) 02/16/24 22:37 Parainfluenza 1 (PCR) Not Detected (NotDetected) 02/16/24 22:37 Parainfluenza 2 (PCR) Not Detected (NotDetected) 02/16/24 22:37 Parainfluenza 3 (PCR) Not Detected (NotDetected) 02/16/24 22:37 Parainfluenza 4 (PCR) Not Detected (NotDetected) 02/16/24 22:37 RSV (PCR) Not Detected (NotDetected) 02/16/24 22:37 Entero/Rhino (PCR) Not Detected (NotDetected) 02/16/24 22:37 Impressions Chest X-Ray 02/16/24 18:12 XR chest 1V not portable HISTORY: 43 years-old Female Chest pain, nonspecific COMPARISON: 12/21/2023 TECHNIQUE: PA view the chest FINDINGS: Cardiac silhouette is enlarged. Small left pleural effusion with persistent left basilar consolidation. No pneumothorax or overt pulmonary edema. Bones are grossly intact. Right upper abdominal surgical clips. IMPRESSION: Small left pleural effusion with persistent left basilar consolidation suggestive of pneumonia. Similar findings were present on the 12/21/2023 exam. ACT 112: Negative or not required by law. The above report was generated using voice recognition software. It may contain grammatical, syntax or spelling errors. Electronically signed by: Nick Jon M.D. 02/16/2024 6:39 PM Chest CTA 02/16/24 20:00 Exam(s): CTA CHEST IV Amt: OPTIRAY [id number] 115ML EXAM: CT Angiography Chest With Intravenous Contrast CLINICAL HISTORY: Reason for exam: PE. TECHNIQUE: Axial computed tomographic angiography images of the chest with intravenous contrast. CTDI is 40 mGy and DLP is 790.36 mGy-cm. Automated exposure control was utilized for the study. A dose lowering technique was utilized adhering to the principles of ALARA. MIP reconstructed images were created and reviewed. COMPARISON: CT December 21, 2023 FINDINGS: Pulmonary arteries: No pulmonary embolism. Aorta: No acute findings. Normal caliber. No dissection. Lungs: Bilateral atelectasis left greater than right. Pleural space: Small left pleural effusion. Heart: Small pericardial effusion. Bones/joints: No acute fracture. Soft tissues: Unremarkable. Lymph nodes: Unremarkable. IMPRESSION: 1. No pulmonary embolism. 2. Bilateral atelectasis left greater than right. 3. Small left pleural effusion. 4. Small pericardial effusion. Electronically signed by: Angus Alberto MD 02/16/24 22:13 PM Total Time Total Time Spent Total Time Spent (In Minutes): >30 minutes
== END 2024-02-17 17:16 | disposition home or self-care (01) ==
LOC: ED 18:01 → 2E 23:47 → INTOOBSV 23:47 → 2E 02-17 00:21

== ENCOUNTER 2024-03-01 09:23 | Inpatient (IN) ==
[2024-03-01 10:02] LABS: Basophils # (auto) 0.08 K/uL (0.00-0.20); Basophils % (auto) 0.7 %; Eosinophils # (auto) 0.19 K/uL (0.00-0.50); Eosinophils % (auto) 1.6 %; Hematocrit (blood only) 37.2 % (37.0-47.0); Hemoglobin 11.8 g/dl (12.0-16.0); Immature Granulocytes # (auto) 0.05 K/uL (0.01-0.20); Immature Granulocytes % (auto) 0.4 %; Lymphocytes # (auto) 1.56 K/uL (1.20-3.40); Lymphocytes % (auto) 13.4 %; Mean Corpuscular Hemoglobin 26.5 pg (25.0-34.0); Mean Corpuscular Hgb Conc 31.7 g/dL (32.0-36.0); Mean Corpuscular Volume 83.4 fL (80.0-100.0); Mean Platelet Volume 9.4 fL (9.4-12.4); Monocytes # (auto) 0.62 K/uL (0.11-0.59); Monocytes % (auto) 5.3 %; Neutrophils # (auto) 9.14 K/uL (1.40-6.50); Neutrophils % (auto) 78.6 %; Platelet Count 437 K/uL (130-400); RDW Coefficient of Variation 13.9 % (11.5-14.5); RDW Standard Deviation 42.1 fL (36.4-46.3); Red Blood Count 4.46 M/uL (4.20-5.40); White Blood Count 11.64 K/ul (4.8-10.8)
--- NOTE | 2024-03-01 10:13 | XRay Report ---
XR chest 1V portable CLINICAL HISTORY: Chest pain, nonspecific COMPARISON STUDY: Chest radiograph and chest CT February 16, 2024. FINDINGS: There is no pneumothorax. A small to moderate left pleural effusion is again noted. Associa john left basilar opacity is increased. Cardiomegaly is unchanged. There is no evidence for pulmonary edema. Right lung is clear. IMPRESSION: Small to moderate left pleural effusion with increase in left basilar airspace opacity s ernst prior chest radiograph and chest CT. ACT 112: Negative or not required by law. Electronically signed by: Judah Claudio M.D. 03/01/2024 10:11 AM
[2024-03-01 10:14] LABS: Pregnancy Test, Serum Negative (Negative)
[2024-03-01] MEDS: SODIUM CHLORIDE 0.9% 1,000 ML IV ONE (10:14)
[2024-03-01 10:19] LABS: Albumin Globulin Ratio 1.2 (0.9-2); Albumin Level 4.1 gm/dl (3.4-5.0); BUN Creatinine Ratio 17.4 (10-20); Bilirubin,Total 0.4 mg/dl (0.2-1.0); Calcium 9.1 mg/dl (8.6-10.3); Est GFR (African American) 121.8 ml/min; Est GFR (Non-African American) 105.1 ml/min; Globulin 3.5 gm/dl (2.5-4.0); Magnesium 1.8 mg/dl (1.7-2.4); Total Protein 7.6 gm/dl (6.0-8.3)
[2024-03-01 10:24] LABS: Troponin I High Sensitivity 2.6 pg/ml (0-14)
[2024-03-01 10:33] LABS: Thyroid Stimulating Hormone 1.112 uIu/ml (0.300-4.500)
--- NOTE | 2024-03-01 10:35 | Emergency Department Note ---
Impression & Plan Pneumonia, Pleural effusion, Rhinovirus infection, Shortness of breath ED Provider Note NAME: MI WONG AGE: 43 SEX: F : 1980 ARRIVES VIA: Walk-In INFORMANT: Patient ED PROVIDER(S): Anderson Tellez MD CHIEF COMPLAINT: Shortness of breath PLAN: Disposition: Admit MEDICAL DECISION MAKING: The patient is a pleasant 43-year-old woman with a past medical history of psoriatic arthritis on immunotherapy who presents to the emergency department via walk-in for worsening shortness of breath over the past week in the setting of being admitted to this facility from 02/15-02/16 for similar symptoms where she was noted to have a small left-sided pleural effusion with question of infiltrates/pneumonia. Initially, the patient had CT findings that suggested possible pericardial effusion but formal echo demonstrated no pericardial effusion and otherwise normal EF and no valvular abnormalities. Patient reports she has had mild cough with minimal congestion. She noted that she had more sinus congestion leaving the hospital which has subsequently improved. She denies nausea or vomiting. She denies diarrhea. On my evaluation the patient is no acute distress, afebrile Acute renal insufficiency with heart rate in the 120s and blood pressure 140/90s and vital signs otherwise stable. She appears euvolemic. She has intermittent wheezes of bilateral lung robert and diminished left base, otherwise clear. EKG without overt acute ischemia. Chest x-ray with left pleural effusion and bibasilar densities, nonspecific. Lung findings better characterized on CT imaging. WBC 11.6 K, nonspecific. H/H similar to prior. Platelets 437, nonspecific. VBG is unremarkable. Chemistry without metabolic acidosis. Electrolytes and LFTs unremarkable. High-sensitivity troponin within normal limits. Lipase not elevated. TSH within normal limits. hCG negative. Procalcitonin is normal. UA without convincing evidence of infection. CTA of the chest was performed and was negative for PE. Progression of previously seen pericardial effusion and left pleural effusion is described. Per findings pneumonia is suggested to be less likely however in the clinical context this is additionally considered. Patient did report feeling some improvement after treatment with IV fluid hydration, DuoNeb and Solu-Medrol. However given evidence of worsening pleural effusion anticipate that she may benefit from diuresis and so IV Lasix was ordered. She does agree with plan for admission for further management. Blood cultures were obtained and empiric treatment for pneumonia initiated with ceftriaxone and doxycycline at this time. Case was discussed with Kym Ramos, with Dr. Germain [facility] hospitalist who will evaluate the patient for admission. Triage Nursing notes reviewed and agree them. Prior/external medical records reviewed Vital Signs: reviewed Differential diagnosis: Reactive airway disease, pneumonia, pneumothorax, COPD, CHF, infections, cardiac ischemia, pulmonary embolism, musculoskeletal, gastrointestinal, as well as other pathologies. ER treatment provided: See below. Diagnostics interpreted by me: ECG: Sinus tachycardia, 120 bpm, no ectopy, no overt ST ovation or depression, QTc 4 1, qrs 84 Cardiac Monitoring: An order for continuous cardiac monitoring was placed and demonstrated Sinus tachycardia, 120 bpm, no ectopy Laboratory studies: See below Imaging studies: See below Consultation(s): Kym Ramos, with [facility] hospital[facility] HPI: The patient is a pleasant 43-year-old woman with a past medical history of psoriatic arthritis on immunotherapy who presents to the emergency department via walk-in for worsening shortness of breath over the past week in the setting of being admitted to this facility from 02/15-02/16 for similar symptoms where she was noted to have a small left-sided pleural effusion with question of infiltrates/pneumonia. Initially, the patient had CT findings that suggested possible pericardial effusion but formal echo demonstrated no pericardial effusion and otherwise normal EF and no valvular abnormalities. Patient reports she has had mild cough with minimal congestion. She noted that she had more sinus congestion leaving the hospital which has subsequently improved. She denies nausea or vomiting. She denies diarrhea. ROS: See above HPI for pertinent positives & negatives. A total of 10 systems reviewed and were otherwise negative. VITALS:See Below PHYSICAL EXAMINATION: GENERAL: Awake, alert, in no distress, BMI 48.9. HENT: Normocephalic, atraumatic. Oropharynx unremarkable. EYES: Normal conjunctiva. Sclera non-icteric. NECK: Supple. No nuchal rigidity. FROM. No JVD. RESPIRATORY: Intermittent wheezes of bilateral lung robert and diminished left base, otherwise clear. CARDIAC: Tachycardic rate, normal rhythm. Extremities warm and well perfused. Pulses equal. ABDOMEN: Soft, non-distended. No tenderness to palpation. No rebound or guarding. No masses. MUSCULOSKELETAL: Chest examination reveals no tenderness. The back is symmetrical on inspection without obvious abnormality. There is no CVA tenderness to palpation. No joint edema. LOWER EXTREMITIES: Calves are equal size bilaterally and non-tender. No edema. No discoloration. NEURO: Normal sensorium. No sensory or motor deficits noted. SKIN: No rash or jaundice noted. Anderson Tellez MD Past Med/Surg History Medical History Depression History of COVID-19 10/2021- no hosp, resolved Psoriatic arthritis Obesity, morbid, BMI 40.0-49.9 on ozempic weekly Pseudotumor cerebri monitored Fatty liver Surgical History S/P cholecystectomy S/P tubal ligation History of section X 2 History of wisdom tooth extraction Family History Grandfather (Paternal) Colorectal cancer, Onset Age: 63 Mother Breast cancer Grandmother (Maternal) Breast cancer Aunt Breast cancer multiple maternal aunts Denies family history of Ovarian cancer Uterine cancer Social History Smoking Status: Never smoker Tobacco Type: Cigarettes Second Hand Exposure: Yes ( A CHILD); Do You Dip or Chew Tobacco: No; Hx Alcohol Use: Yes Alcohol type: hard liquor Hx Substance Use: No Preferred Language: Tajik Communication Ability: Effective Visual Impairment: No Limitations Tube Teller Required: No Beliefs That Will Affect Care: None Current Living Situation: Family Current Living Situation Comment: daughter and son Feels Safe at Home: Yes Assistive Devices: None Allergies Allergies Allergy/AdvReac Type Severity Reaction Status Date / Time Sulfa (Sulfonamide Allergy Unknown Rash Verified 03/01/24 13:23 Antibiotics) Home Meds Home Medications Medication Instructions Recorded Confirmed betamethasone dipropionate 0.05 % 1 applic topical DAILY PRN flaring 02/16/24 03/01/24 lotion duloxetine 30 mg capsule,delayed 30 mg PO DAILY 02/16/24 03/01/24 release (Cymbalta) Probiotic 1 cap PO DAILY 03/01/24 03/01/24 amoxicillin 875 mg-potassium 1 tab PO BID 03/01/24 03/01/24 clavulanate 125 mg tablet azithromycin 250 mg tablet See Rx Instructions .Route .COMPLEX 03/01/24 03/01/24 benzonatate 100 mg capsule 100 mg PO TID PRN Cough 03/01/24 03/01/24 loratadine 10 mg tablet 10 mg PO DAILY 03/01/24 03/01/24 omeprazole 20 mg capsule,delayed 20 mg PO DAILYBB 03/01/24 03/01/24 release Previous Rx's Medication Instructions Recorded guselkumab 100 mg/mL subcutaneous 100 mg subcut .COMPLEX #1 mL 01/03/24 syringe (Josiane) Results & Data (ED) Vital Signs Vital Signs - 24 hr 03/01/24 09:26 03/01/24 09:42 03/01/24 10:00 Temperature 36.4 C L Temperature Source Temporal Artery Scan Pulse Rate 123 H 112 H Pulse Rate [Apical] Respiratory Rate 25 H Respiratory Effort / Characteristics Non-Labored Spontaneous Labored Short of Breath SOB on Exertion Respiratory Depth Normal Shallow Respiratory Pattern Tachypnea Blood Pressure 147/97 H Blood Pressure [Right Arm] Blood Pressure Mean 113 Blood Pressure Mean [Right Arm] Pulse Oximetry 100 Oxygen Delivery Method Room Air Sepsis Recent Fever Within 48 Hours No Sepsis New/Unexplained Change in Mental Status N/A Sepsis Action Taken by Nursing No Action Required 03/01/24 10:34 03/01/24 11:00 03/01/24 12:30 Temperature Temperature Source Pulse Rate 110 H Pulse Rate [Apical] 106 H Respiratory Rate 20 22 Respiratory Effort / Characteristics Respiratory Depth Respiratory Pattern Blood Pressure 120/92 Blood Pressure [Right Arm] 151/81 H Blood Pressure Mean 101 Blood Pressure Mean [Right Arm] 104 Pulse Oximetry 95 92 93 Oxygen Delivery Method Room Air Room Air Sepsis Recent Fever Within 48 Hours Sepsis New/Unexplained Change in Mental Status Sepsis Action Taken by Nursing Laboratory Data Attestation: I reviewed the patient's lab results. 03/01/24 09:40 03/01/24 09:40 Lab Results 03/01/24 03/01/24 03/01/24 Range/Units 09:30 09:40 09:56 WBC 11.64 H (4.8-10.8) K/ul RBC 4.46 (4.20-5.40) M/uL Hgb 11.8 L (12.0-16.0) g/dl Hct 37.2 (37.0-47.0) % MCV 83.4 (80.0-100.0) fL MCH 26.5 (25.0-34.0) pg MCHC 31.7 L (32.0-36.0) g/dL RDW Std Deviation 42.1 (36.4-46.3) fL RDW Coeff of Tangela 13.9 (11.5-14.5) % Plt Count 437 H (130-400) K/uL MPV 9.4 (9.4-12.4) fL Immature Gran % (Auto) 0.4 % Neut % (Auto) 78.6 % Lymph % (Auto) 13.4 % [place] % (Auto) 5.3 % Eos % (Auto) 1.6 % Baso % (Auto) 0.7 % Neut # (Auto) 9.14 H (1.40-6.50) K/uL Lymph # (Auto) 1.56 (1.20-3.40) K/uL [place] # (Auto) 0.62 H (0.11-0.59) K/uL Eos # (Auto) 0.19 (0.00-0.50) K/uL Baso # (Auto) 0.08 (0.00-0.20) K/uL Immature Gran # (Auto) 0.05 (0.01-0.20) K/uL PT 10.3 (9.0-12.0) Seconds INR 0.9 (0.9-1.1) VBG pH (7.36-7.41) VBG pCO2 (38-50) mmHg VBG pO2 mmHg VBG HCO3 mmol/L VBG O2 Saturation % VBG Base Excess mEq/L Sodium 137 (136-145) mmol/L Potassium 4.0 (3.5-5.1) mmol/L Chloride 102 (98-107) mmol/L Carbon Dioxide 27 (21-32) mmol/L Anion Gap 8 (3-11) BUN 12 (6-23) mg/dl Creatinine 0.69 (0.6-1.2) mg/dl Est Cr Clr Drug Dosing 143.0 ml/min Est GFR ( Amer) 121.8 ml/min Est GFR (Non-Af Amer) 105.1 ml/min BUN/Creatinine Ratio 17.4 (10-20) Glucose 128 H (70-99(Fasting)) mg/dl Lactate (0.4-2.0) mmol/L Calcium 9.1 (8.6-10.3) mg/dl Phosphorus 3.0 (2.5-4.9) mg/dl Magnesium 1.8 (1.7-2.4) mg/dl Total Bilirubin 0.4 (0.2-1.0) mg/dl AST 15 (13-39) U/L ALT 19 (7-52) U/L Alkaline Phosphatase 97 (34-104) U/L Troponin I High Sens 2.6 (0-14) pg/ml Total Protein 7.6 (6.0-8.3) gm/dl Albumin 4.1 (3.4-5.0) gm/dl Globulin 3.5 (2.5-4.0) gm/dl Albumin/Globulin Ratio 1.2 (0.9-2) Lipase 12 (11-82) U/L Procalcitonin (0-0.5) ng/ml TSH 1.112 (0.300-4.500) uIu/ml HCG, Qual Negative (Negative) Nasal Screen MRSA (PCR) (Negative) Adenovirus (PCR) Not Detected (NotDetected) B. pertussis DNA (PCR) Not Detected (NotDetected) B.parapertussis DNA PCR Not Detected (NotDetected) C. pneumoniae DNA (PCR) Not Detected (NotDetected) Coronavirus OC43 (PCR) Not Detected (NotDetected) Coronavirus HKU1 (PCR) Not Detected (NotDetected) Coronavirus 229E (PCR) Not Detected (NotDetected) SARS-CoV-2 (PCR) Not Detected (NotDetected) Coronavirus NL63 (PCR) Not Detected (NotDetected) Human Metapneumovir PCR Not Detected (NotDetected) Influenza Type A (PCR) Not Detected (NotDetected) Influenza Type B (PCR) Not Detected (NotDetected) M. pneumoniae (PCR) Not Detected (NotDetected) Parainfluenza 1 (PCR) Not Detected (NotDetected) Parainfluenza 2 (PCR) Not Detected (NotDetected) Parainfluenza 3 (PCR) Not Detected (NotDetected) Parainfluenza 4 (PCR) Not Detected (NotDetected) RSV (PCR) Not Detected (NotDetected) Entero/Rhino (PCR) DETECTED A (NotDetected) 03/01/24 03/01/24 03/01/24 Range/Units 10:39 11:20 11:24 WBC (4.8-10.8) K/ul RBC (4.20-5.40) M/uL Hgb (12.0-16.0) g/dl Hct (37.0-47.0) % MCV (80.0-100.0) fL MCH (25.0-34.0) pg MCHC (32.0-36.0) g/dL RDW Std Deviation (36.4-46.3) fL RDW Coeff of Tangela (11.5-14.5) % Plt Count (130-400) K/uL MPV (9.4-12.4) fL Immature Gran % (Auto) % Neut % (Auto) % Lymph % (Auto) % [place] % (Auto) % Eos % (Auto) % Baso % (Auto) % Neut # (Auto) (1.40-6.50) K/uL Lymph # (Auto) (1.20-3.40) K/uL [place] # (Auto) (0.11-0.59) K/uL Eos # (Auto) (0.00-0.50) K/uL Baso # (Auto) (0.00-0.20) K/uL Immature Gran # (Auto) (0.01-0.20) K/uL PT (9.0-12.0) Seconds INR (0.9-1.1) VBG pH 7.38 (7.36-7.41) VBG pCO2 44 (38-50) mmHg VBG pO2 < 20 mmHg VBG HCO3 26 mmol/L VBG O2 Saturation < 60.0 % VBG Base Excess 0.5 mEq/L Sodium (136-145) mmol/L Potassium (3.5-5.1) mmol/L Chloride (98-107) mmol/L Carbon Dioxide (21-32) mmol/L Anion Gap (3-11) BUN (6-23) mg/dl Creatinine (0.6-1.2) mg/dl Est Cr Clr Drug Dosing ml/min Est GFR ( Amer) ml/min Est GFR (Non-Af Amer) ml/min BUN/Creatinine Ratio (10-20) Glucose (70-99(Fasting)) mg/dl Lactate 1.1 (0.4-2.0) mmol/L Calcium (8.6-10.3) mg/dl Phosphorus (2.5-4.9) mg/dl Magnesium (1.7-2.4) mg/dl Total Bilirubin (0.2-1.0) mg/dl AST (13-39) U/L ALT (7-52) U/L Alkaline Phosphatase (34-104) U/L Troponin I High Sens (0-14) pg/ml Total Protein (6.0-8.3) gm/dl Albumin (3.4-5.0) gm/dl Globulin (2.5-4.0) gm/dl Albumin/Globulin Ratio (0.9-2) Lipase (11-82) U/L Procalcitonin 0.03 (0-0.5) ng/ml TSH (0.300-4.500) uIu/ml HCG, Qual (Negative) Nasal Screen MRSA (PCR) (Negative) Adenovirus (PCR) (NotDetected) B. pertussis DNA (PCR) (NotDetected) B.parapertussis DNA PCR (NotDetected) C. pneumoniae DNA (PCR) (NotDetected) Coronavirus OC43 (PCR) (NotDetected) Coronavirus HKU1 (PCR) (NotDetected) Coronavirus 229E (PCR) (NotDetected) SARS-CoV-2 (PCR) (NotDetected) Coronavirus NL63 (PCR) (NotDetected) Human Metapneumovir PCR (NotDetected) Influenza Type A (PCR) (NotDetected) Influenza Type B (PCR) (NotDetected) M. pneumoniae (PCR) (NotDetected) Parainfluenza 1 (PCR) (NotDetected) Parainfluenza 2 (PCR) (NotDetected) Parainfluenza 3 (PCR) (NotDetected) Parainfluenza 4 (PCR) (NotDetected) RSV (PCR) (NotDetected) Entero/Rhino (PCR) (NotDetected) 03/01/24 Range/Units 13:45 WBC (4.8-10.8) K/ul RBC (4.20-5.40) M/uL Hgb (12.0-16.0) g/dl Hct (37.0-47.0) % MCV (80.0-100.0) fL MCH (25.0-34.0) pg MCHC (32.0-36.0) g/dL RDW Std Deviation (36.4-46.3) fL RDW Coeff of Tangela (11.5-14.5) % Plt Count (130-400) K/uL MPV (9.4-12.4) fL Immature Gran % (Auto) % Neut % (Auto) % Lymph % (Auto) % [place] % (Auto) % Eos % (Auto) % Baso % (Auto) % Neut # (Auto) (1.40-6.50) K/uL Lymph # (Auto) (1.20-3.40) K/uL [place] # (Auto) (0.11-0.59) K/uL Eos # (Auto) (0.00-0.50) K/uL Baso # (Auto) (0.00-0.20) K/uL Immature Gran # (Auto) (0.01-0.20) K/uL PT (9.0-12.0) Seconds INR (0.9-1.1) VBG pH (7.36-7.41) VBG pCO2 (38-50) mmHg VBG pO2 mmHg VBG HCO3 mmol/L VBG O2 Saturation % VBG Base Excess mEq/L Sodium (136-145) mmol/L Potassium (3.5-5.1) mmol/L Chloride (98-107) mmol/L Carbon Dioxide (21-32) mmol/L Anion Gap (3-11) BUN (6-23) mg/dl Creatinine (0.6-1.2) mg/dl Est Cr Clr Drug Dosing ml/min Est GFR ( Amer) ml/min Est GFR (Non-Af Amer) ml/min BUN/Creatinine Ratio (10-20) Glucose (70-99(Fasting)) mg/dl Lactate (0.4-2.0) mmol/L Calcium (8.6-10.3) mg/dl Phosphorus (2.5-4.9) mg/dl Magnesium (1.7-2.4) mg/dl Total Bilirubin (0.2-1.0) mg/dl AST (13-39) U/L ALT (7-52) U/L Alkaline Phosphatase (34-104) U/L Troponin I High Sens (0-14) pg/ml Total Protein (6.0-8.3) gm/dl Albumin (3.4-5.0) gm/dl Globulin (2.5-4.0) gm/dl Albumin/Globulin Ratio (0.9-2) Lipase (11-82) U/L Procalcitonin (0-0.5) ng/ml TSH (0.300-4.500) uIu/ml HCG, Qual (Negative) Nasal Screen MRSA (PCR) Negative (Negative) Adenovirus (PCR) (NotDetected) B. pertussis DNA (PCR) (NotDetected) B.parapertussis DNA PCR (NotDetected) C. pneumoniae DNA (PCR) (NotDetected) Coronavirus OC43 (PCR) (NotDetected) Coronavirus HKU1 (PCR) (NotDetected) Coronavirus 229E (PCR) (NotDetected) SARS-CoV-2 (PCR) (NotDetected) Coronavirus NL63 (PCR) (NotDetected) Human Metapneumovir PCR (NotDetected) Influenza Type A (PCR) (NotDetected) Influenza Type B (PCR) (NotDetected) M. pneumoniae (PCR) (NotDetected) Parainfluenza 1 (PCR) (NotDetected) Parainfluenza 2 (PCR) (NotDetected) Parainfluenza 3 (PCR) (NotDetected) Parainfluenza 4 (PCR) (NotDetected) RSV (PCR) (NotDetected) Entero/Rhino (PCR) (NotDetected) Administered Medications Enoxaparin Sodium (Enoxaparin Inj 40 Mg/0.4 Ml Syr) 40 mg SQ Q12H BARB Stop: 03/31/24 20:59 Last Admin: 03/01/24 20:03 Dose: 40 mg Documented By: MELCHOR Discontinued Medications Albuterol (Albut/Ipratrop 3mg/0.5mg Neb 3 Ml Vial) 3 ml NEB NOW STA; Protocol Stop: 03/01/24 10:33 Last Admin: 03/01/24 10:42 Dose: 3 ml Documented By: Furosemide (Furosemide Inj 20 Mg/2 Ml Vial) 20 mg IV NOW STA Stop: 03/01/24 13:30 Last Admin: 03/01/24 13:44 Dose: 20 mg Documented By: JIGNA Sodium Chloride (Nss) 1,000 mls @ 999 mls/hr IV .Q1H1M ONE Stop: 03/01/24 10:43 Last Infusion: 03/01/24 11:27 Dose: Infused Documented By: Admin: 03/01/24 10:14 Dose: 999 mls/hr Documented By: CHRISSIE(2) Acetaminophen (Ofirmev) 1,000 mg in 100 mls @ 400 mls/hr IV NOW STA Stop: 03/01/24 11:13 Last Infusion: 03/01/24 12:00 Dose: Infused Documented By: Admin: 03/01/24 11:27 Dose: 400 mls/hr Documented By: CHRISSIE Ceftriaxone Sodium (Rocephin) 2,000 mg in 50 mls @ 100 mls/hr IV NOW STA Stop: 03/01/24 13:58 Last Infusion: 03/01/24 14:08 Dose: Infused Documented By: Admin: 03/01/24 13:44 Dose: 100 mls/hr Documented By: JIGNA Doxycycline Hyclate 100 mg/ (Dextrose) 100 mls @ 50 mls/hr IV NOW STA Stop: 03/01/24 15:28 Last Infusion: 03/01/24 16:08 Dose: Infused Documented By: Admin: 03/01/24 14:08 Dose: 50 mls/hr Documented By: CHRISSIE Ioversol (Optiray 320 125ml) 118 ml IV ONCE ONE Stop: 03/01/24 11:08 Last Admin: 03/01/24 11:08 Dose: 118 ml Documented By: SANDRA Methylprednisolone (Methylprednisolone 125 Mg/2 Ml Vial) 125 mg IV NOW STA Stop: 03/01/24 10:33 Last Admin: 03/01/24 10:42 Dose: 125 mg Documented By: MR Imaging Data Radiologist's Impression: Chest CTA 03/01/24 10:34 CT ANGIOGRAPHY OF THE CHEST, PULMONARY EMBOLUS PROTOCOL CLINICAL HISTORY: sob, tachcardy, r/o PE COMPARISON STUDY: Chest CT February 16, 2024. Chest radiograph performed earlier today. TECHNIQUE: Following IV administration of 118 mL of Optiray, helical axial images of the chest were obtained utilizing the pulmonary embolus protocol. Maximal intensity projections and sagittal and coronal reformats were viewed on an independent 3D workstation. IV contrast was administered without complication. Automated exposure control was utilized for the study. A dose lowering technique was utilized adhering to the principles of ALARA. CT DOSE: 809.7 mGy.cm FINDINGS: Mediastinal lymph nodes have slightly increased in size since CT of February 16, 2024. A prevascular node on image [id number] measures 2 x 0.9 cm. No pulmonary emboli are identified. There is no thoracic aortic dissection. Size the heart is normal. A moderate-sized pericardial effusion has increased in size since prior exam. There is suggestion of mild pericardial thickening with minimal enhancement. A moderate left pleural effusion has increased in size since prior exam. Subpleural left lower lobe and lingular opacity is present. There is no central obstructing mass. No pneumothorax or right pleural effusion is present. IMPRESSION: 1. No pulmonary emboli identified. 2. Increase in size of a moderate pericardial effusion. Mild pericardial thickening and minimal enhancement raises the possibility of pericarditis. 3. Increase in size of a moderate left pleural effusion. Associated left lower lobe opacity favors atelectasis. Pneumonia is considered less likely. 4. Slightly enlarged mediastinal lymph nodes which are likely reactive. ACT 112: Negative or not required by law. Electronically signed by: Judah Claudio M.D. 03/01/2024 11:28 AM Discharge Plan Visit Data Chief Complaint: Shortness of Breath/Dyspnea Stated Complaint: SOB ED Provider: Anderson Tellez Discharge Problem: Pneumonia, Pleural effusion, Rhinovirus infection, Shortness of breath Patient Disposition: Admitted As Inpatient Discharge Instructions Interventions: ED Discharge Assessment Last Done: 03/01/24 21:40 Discharge Problem: Pneumonia Qualifiers: Pneumonia type: due to unspecified organism Laterality: left Lung location: l ower lobe of lung Qualified Code(s): J18.9 - Pneumonia, unspecified organism
[2024-03-01] MEDS: methylPREDNISolone 125 MG/2 ML VIAL IV STA (10:42)
[2024-03-01] MEDS: ALBUT/IPRATROP 3MG/0.5MG NEB 3 ML VIAL NEB STA (10:42)
[2024-03-01 10:44] LABS: Adenovirus PCR Not Detected (NotDetected); Bordetella parapertussis PCR Not Detected (NotDetected); Bordetella pertussis PCR Not Detected (NotDetected); Chlamydia pneumoniae PCR Not Detected (NotDetected); Coronavirus 229E PCR Not Detected (NotDetected); Coronavirus CoV-2 (COVID19)PCR Not Detected (NotDetected); Coronavirus HKU1 PCR Not Detected (NotDetected); Coronavirus NL63 PCR Not Detected (NotDetected); Coronavirus OC43PCR Not Detected (NotDetected); Human Metapneumovirus PCR Not Detected (NotDetected); Influenza A PCR Not Detected (NotDetected); Influenza B PCR Not Detected (NotDetected); Mycoplasma pneumoniae PCR Not Detected (NotDetected); Parainfluenza Virus 1 PCR Not Detected (NotDetected); Parainfluenza Virus 2 PCR Not Detected (NotDetected); Parainfluenza Virus 3 PCR Not Detected (NotDetected); Parainfluenza Virus 4 PCR Not Detected (NotDetected); Respiratory Syncytial VirusPCR Not Detected (NotDetected); Rhinovirus/Enterovirus PCR DETECTED (NotDetected)
[2024-03-01 10:45] LABS: INR 0.9 (0.9-1.1); Prothrombin Time 10.3 Seconds (9.0-12.0)
[2024-03-01 10:46] LABS: Base Excess VBG 0.5 mEq/L; HCO3 VBG 26 mmol/L; Oxygen Saturation VBG < 60.0 %; PCO2 VBG 44 mmHg (38-50); PO2 VBG < 20 mmHg; pH VBG 7.38 (7.36-7.41)
[2024-03-01] MEDS: OPTIRAY 320 125ml IV ONE (11:08)
[2024-03-01] MEDS: ACETAMINOPHEN 1,000 MG/100 ML VIAL IV STA (11:27)
--- NOTE | 2024-03-01 11:29 | CT Scan Report ---
CT ANGIOGRAPHY OF THE CHEST, PULMONARY EMBOLUS PROTOCOL CLINICAL HISTORY: sob, tachcardy, r/o PE COMPARISON STUDY: Chest CT February 16, 2024. Chest radiograph performed earlier today. TECHNIQUE: Following IV administration of 118 mL of Optiray, helical axial images of the chest were o btained utilizing the pulmonary embolus protocol. Maximal intensity projections and sagittal and cor onal reformats were viewed on an independent 3D workstation. IV contrast was administered without co mplication. Automated exposure control was utilized for the study. A dose lowering technique was ut ilized adhering to the principles of ALARA. CT DOSE: 809.7 mGy.cm FINDINGS: Mediastinal lymph nodes have slightly increased in size since CT of February 16, 2024. A preva scular node on image [id number] measures 2 x 0.9 cm. No pulmonary emboli are identified. There is no tho racic aortic dissection. Size the heart is normal. A moderate-sized pericardial effusion has increase d in size since prior exam. There is suggestion of mild pericardial thickening with minimal enhanceme nt. A moderate left pleural effusion has increased in size since prior exam. Subpleural left lower lo be and lingular opacity is present. There is no central obstructing mass. No pneumothorax or right pl eural effusion is present. IMPRESSION: 1. No pulmonary emboli identified. 2. Increase in size of a moderate pericardial effusion. Mild pericardial thickening and minimal enhan cement raises the possibility of pericarditis. 3. Increase in size of a moderate left pleural effusion. Associated left lower lobe opacity favors at electasis. Pneumonia is considered less likely. 4. Slightly enlarged mediastinal lymph nodes which are likely reactive. ACT 112: Negative or not required by law. Electronically signed by: Judah Claudio M.D. 03/01/2024 11:28 AM
[2024-03-01] MEDS: FUROSEMIDE INJ 20 MG/2 ML VIAL IV STA (13:44)
[2024-03-01] MEDS: cefTRIAXone SODIUM 2,000 MG/50 ML BAG IV STA (13:44)
[2024-03-01] MEDS ORDERED: ONDANSETRON INJ 2 MG/ML 2 ML VIAL IV PRN (13:57)
[2024-03-01] MEDS ORDERED: ACETAMINOPHEN 325 MG TAB PO PRN (13:57)
[2024-03-01] MEDS ORDERED: ALUMINUM/MAGNESIUM SUSP 30 ML UDC PO PRN (13:57)
[2024-03-01] MEDS ORDERED: MAGNESIUM HYDROXIDE SUSP 30 ML UDC PO PRN (13:57)
[2024-03-01] MEDS ORDERED: POLYETHYLENE (MIRALAX) 17 GM PACK PO PRN (13:57)
[2024-03-01] MEDS: DOXYCYCLINE HYCLATE 100 MG in DEXTROSE 5% MINI-B 100 ML IV STA (14:08)
--- NOTE | 2024-03-01 14:12 | History & Physical Report ---
Date of Service March 01, 2024 Assessment & Plan (1) Pleural effusion: (2) Pneumonia: (3) Obesity, morbid, BMI 40.0-49.9: (4) Psoriatic arthritis: Plan Ms. Cerrato is a complex 43 y/o female who presents to the ED with SOB. She describes that she feels fatigued, tired, and just can't catch her breath. She feels she has not been able to carry out simple tasks without becoming winded; however, her SPO2 remains normal with spot checking at home. She said yesterday she felt good, but generally since she has been discharged from the hospital she has felt 'wiped out' and not well. She has had two inpatient hospitalizations this year; 12/21-12/23 for hypoxic respiratory failure and 02/15-02/16 with SOB/atypical chest pain. Persistent pulmonary infiltrates have been identified. ACS was ruled out and was thought to have costochondritis related to PNA. Additional PMH includes psoriatic arthritis, H/O pseudo tumor cerebri, persistent pleural effusions, and obesity. Today, mild leukocytosis 11.64, lactate and procalcitonin negative, troponin negative, VBG compensated; positive for entero rhinovirus. Chest x-ray reveals small to moderate left pleural effus ion with increased airspace opacity in the left lower lobe. Chest CTA does not indicate PE but mild pericardial thickening continues to be noticed increased from last admission. Pulmonary has evaluated the patient as an outpatient for persistent pleural effusions that are suspected to be related to immunotherapy for psoriatic arthritis. Patient follows with Dr. Bennett rheumatology last appointment 11/16/2023. Patient takes Tremfya and Cymbalta. Patient will be admitted for further evaluation and management of worsening shortness of breath with persistent pleural effusions and questionable pericarditis, with repeat ECHO, sputum culture, supportive flutter valve/ISB treatment for Rhinovirus. Possible persistent infiltrates without infectious symptoms which may be likely related to autoimmune disease. Blood cultures were obtained in the ED along with MRSA screen and started on Rocephin plus Doxy along with DuoNebs and IV steroids. Will continue IV antibiotics and adjust based on culture results. DUe to the persistent fatigue, tiredness, will do a cortstim test in the setting of a young individual with autoimmune disease to assess for adrenal insufficiency. Pleural effusion: Pneumonia: Entero-rhinovirus: Acute Mild leukocytosis WBC 11.64 CXR: Small to moderate left pleural effusion with increase in left basilar a irspace opacity since prior chest radiograph and chest CT. Chest CT: Increase in size of a moderate pericardial effusion. Mild pericardial thickening and minimal enhancement raises the possibility of pericarditis. Increase in size of a moderate left pleural effusion. Associated left lower lobe opacity favors atelectasis. Pneumonia is considered less likely. No PE. Lactate and procalcitonin negative Troponin negative, VBG compensated Entero-rhinovirus positive on biofire Blood cultures and MRSA screen obtained and pending In ED started on Rocephin plus Doxy; continue and adjust based on culture results Administered Solu-Medrol 125 mg in ED; hold additional steroids for now 1L NS be given in ED Lasix 20 mg IV given in ED; hold additional lasix for now pending Pulm consultation DuoNeb given in ED; hold additional for now; no further wheezing on exam Pulmonary consultation for evaluation of persistent pleural effusions ISB + flutter valve for supportive treatment of rhinovirus Possible Pericarditis: Acute Last Chest CTA: does not indicate PE but mild pericardial thickening continues to be noticed increased from last admission Cardiology has evaluated for questionable pericarditis previously at the beginning of February ECHO 02/17/24: EF 55-60%, No valve abnorms. Will repeat ECHO based on repeat imaging that reveals increasing pericardial effusions in size. If no improvement or based on ECHO results, consult cards Psoriatic arthritis: Chronic Diagnosed [address] Bennett rheumatology Currently on immunomodulators treatment via and Cymbalta; continue Will add cortstim testing on to evaluate for adrenal insufficiency; testing ordered for 03/02 History of pseudo tumor cerebri: Chronic Normotensive today in ED Obesity: Chronic Takes Ozempic; continue Has lost 30# since starting Ozempic 06/2023 GERD: Chronic Was recently started on Omeprazole; continue Disposition: PCP: Dr. Block CODE STATUS: Full code VTE prophylaxis: Lovenox SQ I spent a total of 87 minutes coordinating, documenting, and providing care for this patient excluding time spent in the performance of separately billed services. All of the aforementioned completed while collaborating with the assigned attending physician for a full treatment plan. Please see their addendum for further details. History of Present Illness Chief Complaint: SOB Primary Care Provider: Usama Block MD Ms. Cerrato is a complex 43 yaer old female who presents to the ED with SOB. She has had two inpatient hospitalizations this year; 12/21-12/23 for hypoxic respiratory failure and 02/15-02/16 with SOB/atypical chest pain. Persistent pulmonary infiltrates have been identified. ACS was ruled out and was thought to have costochondritis related to PNA. Initially on arrival she was tachycardic in the 120s and was given 1 L NS be bringing her down to 106. She remains on room air with SpO2 saturations 94%. She was given Lasix 20 mg IV once along with Solu-Medrol and a DuoNeb treatment. Additional past medical history includes psoriatic arthritis, history of pseudo tumor cerebri, persistent pleural effusions, obesity, and depression. Today, mild leukocytosis 11.64, lactate and procalcitonin negative, troponin n egative, VBG compensated; positive for entero and rhinovirus. Chest x-ray reveals small to moderate left pleural effusion with increased airspace opacity in the left lower lobe. Chest CTA does not indicate PE but mild pericardial thickening continues to be noticed. Cardiology has evaluated for questionable pericarditis previously at the beginning of February when the echocardiogram was done without abnormalities noted. Pulmonary has evaluated the patient and's an outpatient for persistent pleural effusions that are suspected to be related to immunotherapy for psoriatic arthritis. Patient follows with Dr. Bennett rheumatology last appointment 11/16/2023. Patient takes Tremfya and Cymbalta. There has been discussion of her medications possibly being related to her longstanding symptoms and they discussed possibly changing to methotrexate or another NSAID. Patient denies headache, dizziness, visual or auditory changes, chest pain, palpitation, abdominal pain or tenderness, urinary or bowel changes, recent falls or trauma. Patient will be admitted for further evaluation and management of worsening shortness of breath with persistent pleural effusions and questionable pericarditis, along with enterorhinovirus supportive treatment with flutter valve and ISB. Possible persistent infiltrates without infectious symptoms which may be likely related to autoimmune disease. Blood cultures were obtained in the ED along with MRSA screen and started on Rocephin plus Doxy along with DuoNebs and IV steroids. Allergies Allergy/AdvReac Type Severity Reaction Status Date / Time Sulfa (Sulfonamide Allergy Unknown Rash Verified 03/01/24 13:23 Antibiotics) Home Medications Medication Instructions Recorded Confirmed Type guselkumab 100 mg/mL subcutaneous 100 mg subcut .COMPLEX #1 mL 01/03/24 03/01/24 Rx syringe (Tremfya) betamethasone dipropionate 0.05 % 1 applic topical DAILY PRN flaring 02/16/24 03/01/24 History lotion duloxetine 30 mg capsule,delayed 30 mg PO DAILY 02/16/24 03/01/24 History release (Cymbalta) Probiotic 1 cap PO DAILY 03/01/24 03/01/24 History amoxicillin 875 mg-potassium 1 tab PO BID 03/01/24 03/01/24 History clavulanate 125 mg tablet azithromycin 250 mg tablet See Rx Instructions .Route .COMPLEX 03/01/24 03/01/24 History benzonatate 100 mg capsule 100 mg PO TID PRN Cough 03/01/24 03/01/24 History loratadine 10 mg tablet 10 mg PO DAILY 03/01/24 03/01/24 History omeprazole 20 mg capsule,delayed 20 mg PO DAILYBB 03/01/24 03/01/24 History release Past Med/Surg History Medical History (Updated 03/01/24 @ 17:02 by Anderson Tellez MD) Depression History of COVID-19 10/2021- no hosp, resolved Psoriatic arthritis Obesity, morbid, BMI 40.0-49.9 on ozempic weekly Pseudotumor cerebri monitored Fatty liver Surgical History S/P cholecystectomy S/P tubal ligation History of section X 2 History of wisdom tooth extraction Family History Grandfather (Paternal) Colorectal cancer, Onset Age: 63 Mother Breast cancer Grandmother (Maternal) Breast cancer Aunt Breast cancer multiple maternal aunts Denies family history of Ovarian cancer Uterine cancer Social History Smoking Status: Never smoker Tobacco Type: Cigarettes Second Hand Exposure: Yes ( A CHILD); Do You Dip or Chew Tobacco: No; Hx Alcohol Use: Yes Alcohol type: hard liquor Hx Substance Use: No Preferred Language: Tristanian Communication Ability: Effective Visual Impairment: No Limitations Supervisor Electric Required: No Beliefs That Will Affect Care: None Current Living Situation: Family Current Living Situation Comment: daughter and son Feels Safe at Home: Yes Safety Concerns: Feels Safe At This Time Assistive Devices: None Review of Systems Review of Systems: Neuro: (-) Falls, trauma, slurred speech HEENT: (-) WOLF, dizziness, dysphagia, visual or auditory changes CV: (-) CP, palpitations, swelling Resp: (-) SOB GI: (-) appetite changes, N/V/D, bowel changes : (-) urinary changes Skin: (-) rashes Psych: (-) anxiety, depression Physical Exam Physical Exam: Neuro: AAOx4, PERRLA, no aphagia, memory changes, CNII-XII grossly intact HEENT: head normocephalic, moist mucus membranes CV: S1/S2, (-) M/G/R, (-) edema, cap refill < 3 seconds Resp: Lungs CTA in all robert. On RA GI: Abdomen S/NT/ND, Ax4 bowel sounds, (-) CVA tenderness Musculoskeletal: 5/5 B/L UE strength, 5/5 B/L LE strength. No gait disturbance Skin: (-) rashes , (-) erythema. Psych: euthymic mood Results & Data Results & Data Vital Signs (Past 12 Hours) Vital Signs Temp Pulse Pulse Resp BP BP Pulse Ox 03/01/24 13:57 97 H 03/01/24 12:30 106 H 22 151/81 H 93 03/01/24 11:00 92 03/01/24 10:34 110 H 20 120/92 95 03/01/24 10:00 112 H 03/01/24 09:26 36.4 C L 123 H 25 H 147/97 H 100 O2 Del Method 03/01/24 13:57 03/01/24 12:30 Room Air 03/01/24 11:00 Room Air 03/01/24 10:34 03/01/24 10:00 03/01/24 09:26 Room Air Laboratory Results Short CBC 03/01/24 Range/Units 09:40 WBC 11.64 H (4.8-10.8) K/ul Hgb 11.8 L (12.0-16.0) g/dl Hct 37.2 (37.0-47.0) % Plt Count 437 H (130-400) K/uL BMP 03/01/24 09:40 Sodium 137 Potassium 4.0 Chloride 102 Carbon Dioxide 27 BUN 12 Creatinine 0.69 Glucose 128 H Calcium 9.1 Liver Function 03/01/24 Range/Units 09:40 Total Bilirubin 0.4 (0.2-1.0) mg/dl AST 15 (13-39) U/L ALT 19 (7-52) U/L Alkaline Phosphatase 97 (34-104) U/L Albumin 4.1 (3.4-5.0) gm/dl Diagnostic Findings Chest X-Ray 03/01/24 09:42 XR chest 1V portable CLINICAL HISTORY: Chest pain, nonspecific COMPARISON STUDY: Chest radiograph and chest CT February 16, 2024. FINDINGS: There is no pneumothorax. A small to moderate left pleural effusion is again noted. Associated left basilar opacity is increased. Cardiomegaly is unchanged. There is no evidence for pulmonary edema. Right lung is clear. IMPRESSION: Small to moderate left pleural effusion with increase in left basilar airspace opacity since prior chest radiograph and chest CT. ACT 112: Negative or not required by law. Electronically signed by: Judah Claudio M.D. 03/01/2024 10:11 AM Chest CTA 03/01/24 10:34 CT ANGIOGRAPHY OF THE CHEST, PULMONARY EMBOLUS PROTOCOL CLINICAL HISTORY: sob, tachcardy, r/o PE COMPARISON STUDY: Chest CT February 16, 2024. Chest radiograph performed earlier today. TECHNIQUE: Following IV administration of 118 mL of Optiray, helical axial images of the chest were obtained utilizing the pulmonary embolus protocol. Maximal intensity projections and sagittal and coronal reformats were viewed on an independent 3D workstation. IV contrast was administered without complication. Automated exposure control was utilized for the study. A dose lowering technique was utilized adhering to the principles of ALARA. CT DOSE: 809.7 mGy.cm FINDINGS: Mediastinal lymph nodes have slightly increased in size since CT of February 16, 2024. A prevascular node on image [id number] measures 2 x 0.9 cm. No pulmonary emboli are identified. There is no thoracic aortic dissection. Size the heart is normal. A moderate-sized pericardial effusion has increased in size since prior exam. There is suggestion of mild pericardial thickening with minimal enhancement. A moderate left pleural effusion has increased in size since prior exam. Subpleural left lower lobe and lingular opacity is present. There is no central obstructing mass. No pneumothorax or right pleural effusion is present. IMPRESSION: 1. No pulmonary emboli identified. 2. Increase in size of a moderate pericardial effusion. Mild pericardial thickening and minimal enhancement raises the possibility of pericarditis. 3. Increase in size of a moderate left pleural effusion. Associated left lower lobe opacity favors atelectasis. Pneumonia is considered less likely. 4. Slightly enlarged mediastinal lymph nodes which are likely reactive. ACT 112: Negative or not required by law. Electronically signed by: Judah Claudio M.D. 03/01/2024 11:28 AM Code Status & VTE Plan Code Status Full code in the event of cardiac respiratory arrest VTE Prophylaxis Plan VTE Prophylaxis will be ordered: Yes Supervising Physician Co-Signing Physician Notes I have seen and examined the patient and have discussed the case with the provider above. I have reviewed the advanced practitioner's documentation, and I agree with, and take responsibility for that plan of care. 43 yo F with subacute pleural effusion, worsening pericardial effusion, underlying autoimmune disorder, presenting with worsening shortness of breath and ongoing fatigue. She has been admitted and treated for pneumonia and has had a cardiac evaluation that was essentially normal earlier this month. She reports weight loss from use of Ozempic that is intentional, having continued on this in lieu of pursuing bariatric surgery which was the original goal. She denies any changes in her medications recently and has been on Ozempic since fall 2022. She has undergone a left thoracentesis by pulmonary this evening with results pending. She also received a limited echo for her increased pericardial effusion with no evidence of tamponade. She reports feeling better after the pleural fluid was removed but did become presyncopal during the procedure having to lay supine quickly to avoid loss of consciousness. She does report ongoing respiratory symptoms including cough and some nasal drainage for the past couple of weeks, and has tested positive for RSV. She reports no one else is sick in her family, however. She also reports that last night was the first night where she has come home and not gone straight to bed after work. She was able to do some house chores and was feeling well. This morning was when her acute SOB symptoms began. On exam she is WNWD and is oriented. Skin is warm and dry with no evidence for rash or discolorations anywhere that is visible. Lungs with scant rhonchi at the bases but otherwise clear to auscultation throughout. CV exam reg rate and rhythm, S1.2 heard and no m/g/r. No edema peripherally and she examines as euvolemic. She is not exhibiting increased work of breathing. Abdomen is soft, NTND. MMM, pupils are round and reactive and equal bilaterally. She has no gross focal neuromuscular deficits. Labs/rads/meds reviewed. 1. Acute hypoxic respiratory failure: uncertain cause. Evidence of possible pneumonia on CXR and pt is RSV positive. She also has a new pleural effusion that has not resolved and is being worked up after diagnostic tap this evening. She has a worsening pericardial effusion. She also has not had a normal recovery that would be expected with typical treatment for recent diagnoses. Agree with broad spectrum abx in case of new or worsening pneumonia. She doesn't appears septic. Although she received solumedrol in the ER, will hold off on continuing this given lack of wheezing or known underlying lung disease. Echo was reassuring for no worsening cardiac function or tamponade physiology. She is also not reporting chest pain that is positional so would hold off on treatment for presumed pericarditis at this time. Awaiting thoracentesis results and pulm recommendations. Will obtain cosyntropin stim testing in the morning to rule out AI. TSH notably is normal, however, patient has psoriatic arthritis and may have additional autoimmune dysfunction leading to generalized symptoms and poor recovery. Continue supportive care for RSV infection. DO Marcellus (2) Pneumonia Laterality: left Lung location: lower lobe of lung Pneumonia type: due to unspecified organism Qualified Code(s): J18.9 - Pneumonia, unspecified organism
[2024-03-01 15:14] LABS: Appearance Urine Clear (Clear); Bilirubin Urine Negative (Negative); Blood Urine Negative (Negative); Color Urine Yellow; Glucose Urine UA Negative (Negative); Ketones Urine Negative (Negative); Leukocyte Esterase Urine Negative (Negative); Nitrite Urine Negative (Negative); Protein Urine Negative (Negative); Specific Gravity Urine 1.008 (1.000-1.030); Urobilinogen Urine Negative (Negative); pH Urine 5.5 (4.5-7.5)
--- NOTE | 2024-03-01 16:08 | XRay Report ---
SINGLE VIEW CHEST CLINICAL HISTORY: Status post thoracentesis FINDINGS: 2 AP, portable, semierect chest radiographs are compared to chest x-ray and chest CT perfor med earlier the same day 03/01/2024. The examination is degraded by portable technique and apical lord otic positioning. The cardiac silhouette is enlarged, likely related to pericardial effusion and eloise elated with today's chest CT. There is a small left pleural effusion with left basilar consolidation. This has decreased in size from today's earlier examination right lung appears clear. No pneumothora x is seen. The bony thorax is grossly intact. IMPRESSION: 1. No pneumothorax is seen post procedure. 2. Small residual left pleural effusion with left basilar consolidation. 3. Enlargement of the cardiac silhouette likely represents pericardial effusion when correlated with today's chest CT. ACT 112: Negative or not required by law. Electronically signed by: Raf Landaverde M.D. 03/01/2024 4:06 PM
[2024-03-01 16:53] LABS: Total Protein Pleural Fluid 4.8 gm/dl
[2024-03-01 17:38] LABS: Appearance Pleural Fluid Slightly Hazy; Color Pleural Fluid Straw; Eosinophils, Fluid 2 %; Lymphocytes, Fluid 31 %; Mono,Macrophage,Mesothelial 65 %; Neutrophils, Fluid 2 %; RBC Pleural Fluid Auto < 2000 /uL; Source Pleural Fluid Left Lung; WBC Pleural Fluid Auto 623 /uL
--- NOTE | 2024-03-01 18:49 | Pulmonary Consultation ---
Date of Consultation March 01, 2024 Assessment & Plan (1) Pleural effusion: Plan Impression: 43-year-old female with serositis including pericardial effusion and pleural effusion in a patient with a history of psoriatic arthritis. Pleural effusion is an uncommon manifestation of psoriatic arthritis but can be seen in rare cases. Psoriatic arthritis is more commonly known to cause interstitial lung disease and pulmonary nodules which the patient does not have. Sampling of the fluid is indicated to characterize it microbiologically and cytologically. Low suspicion for infection but the patient has been started on antibiotics. Recommendations: 1. Pleural effusion: The patient will undergo ultrasound-guided catheter thoracentesis and fluid will be sent for microbiologic as well as cytologic analysis. 2. Patient is currently being treated for pneumonia. She does have a telectasis/infiltrate in the lung although it is unclear if this is compressive atelectasis. Will follow cultures. Antibiotics to be directed by the primary service. 3. Serositis: With pericardial effusion and pleural effusion, would recommend evaluation for etiology of serositis. Involvement of rheumatology may be warranted. 4. Will follow-up with pleural fluid studies which will direct additional management. Thanks for the opportunity participating in the care of this patient. Feel free to contact us with questions or concerns History of Present Illness Attending Physician: Suzy Germain, DO History of Present Illness Asked by hospitalist to assist in evaluation management as patient with pleural effusion. History is obtained from discussion with the patient as well as review of electronic medical record. Patient is a 43-year-old female with a history of psoriatic arthritis. She is followed by Dr. Bennett in rheumatology. She was admitted to the hospital in December where she was treated for pneumonia. She completed a course of azithromycin. She was readmitted to the hospital in February with persistent shortness of breath and pleuritic chest pain. She was found to have a small pericardial effusion and pleural effusion. She is given a presumptive diagnosis of pericarditis. She was discharged with instructions to follow-up with outpatient pulmonary. She was apparently seen by physicians event marketing assistant in [facility]. He advised her by her report that there was nothing that he could do for her and that he she likely had an effusion related to her psoriatic arthritis. Again no clinical notes or evaluation are indicated. Effusion was never sampled. The patient presented to the emergency room today complaining of fatigue and shortness of breath. She has not had fevers or chills. She has not had any hemoptysis. She underwent a CT of the chest which demonstrated some pericardial thickening and increased pleural effusion. She was admitted to the hospitalist service. She was treated with Rocephin and doxycycline. She received IV steroids in the emergency room. She denies any history of trauma. No TB exposures or travel history that she is aware of. 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 She has no significant occupational environmental exposures. She was at home with her children. No ill contacts. She is a non-smoker. She has no significant occupational or environmental exposures. There is no family history of lung disease. Allergies Allergy/AdvReac Type Severity Reaction Status Date / Time Sulfa (Sulfonamide Allergy Unknown Rash Verified 03/01/24 13:23 Antibiotics) Home Medications Medication Instructions Recorded Confirmed Type guselkumab 100 mg/mL subcutaneous 100 mg subcut .COMPLEX #1 mL 01/03/24 03/01/24 Rx syringe (Tremfya) betamethasone dipropionate 0.05 % 1 applic topical DAILY PRN flaring 02/16/24 03/01/24 History lotion duloxetine 30 mg capsule,delayed 30 mg PO DAILY 02/16/24 03/01/24 History release (Cymbalta) Probiotic 1 cap PO DAILY 03/01/24 03/01/24 History amoxicillin 875 mg-potassium 1 tab PO BID 03/01/24 03/01/24 History clavulanate 125 mg tablet azithromycin 250 mg tablet See Rx Instructions .Route .COMPLEX 03/01/24 03/01/24 History benzonatate 100 mg capsule 100 mg PO TID PRN Cough 03/01/24 03/01/24 History loratadine 10 mg tablet 10 mg PO DAILY 03/01/24 03/01/24 History omeprazole 20 mg capsule,delayed 20 mg PO DAILYBB 03/01/24 03/01/24 History release Patient History Medical History (Updated 03/01/24 @ 17:02 by Anderson Tellez MD) Depression History of COVID-19 10/2021- no hosp, resolved Psoriatic arthritis Obesity, morbid, BMI 40.0-49.9 on ozempic weekly Pseudotumor cerebri monitored Fatty liver Surgical History S/P cholecystectomy S/P tubal ligation History of section X 2 History of wisdom tooth extraction Family History Grandfather (Paternal) Colorectal cancer, Onset Age: 63 Mother Breast cancer Grandmother (Maternal) Breast cancer Aunt Breast cancer multiple maternal aunts Denies family history of Ovarian cancer Uterine cancer Social History Smoking Status: Never smoker Tobacco Type: Cigarettes Second Hand Exposure: Yes ( A CHILD); Do You Dip or Chew Tobacco: No; Hx Alcohol Use: Yes Alcohol type: hard liquor Hx Substance Use: No Preferred Language: Sinhala Communication Ability: Effective Visual Impairment: No Limitations Rolled Ham Lacer Required: No Beliefs That Will Affect Care: None Current Living Situation: Family Current Living Situation Comment: daughter and son Feels Safe at Home: Yes Safety Concerns: Feels Safe At This Time Assistive Devices: None Review of Systems Review of Systems: Complete 12 point review of systems completed with the patient. Please refer to admission H&P. No additions or deletions Physical Exam Constitutional: WD/WN, vitals as above Neck: trachea midline, no thyromegaly Respiratory: no respiratory distress, no labored breathing, no cough and not tachypneic Auscultation: + diminished lung sounds Decreased breath sounds on the left lung base Cardiovascular: RRR, no murmur, no edema Gastrointestinal (Abdomen): normal bowel sounds, soft, nontender, no hepatosplenomegaly Musculoskeletal: Extremities: extremities normal to inspection Skin: no rashes, warm and dry Neurologic: Nonfocal exam Lymphatic: no cervical lymphadenopathy Results & Data Results & Data Vital Signs (Past 12 Hours) Vital Signs Temp Pulse Pulse Resp BP BP Pulse Ox 03/01/24 17:30 93 H 21 90 03/01/24 17:30 98 H 21 90 03/01/24 17:30 03/01/24 17:29 93 H 20 149/93 H 96 03/01/24 17:00 81 20 116/85 90 03/01/24 16:00 71 18 127/71 91 03/01/24 15:39 03/01/24 14:32 94 03/01/24 14:00 95 H 20 113/85 92 03/01/24 13:57 97 H 03/01/24 12:30 106 H 22 151/81 H 93 03/01/24 11:00 92 03/01/24 10:34 110 H 20 120/92 95 03/01/24 10:00 112 H 03/01/24 09:26 36.4 C L 123 H 25 H 147/97 H 100 Pulse Ox O2 Del Method O2 Del Method 03/01/24 17:30 Room Air 03/01/24 17:30 Room Air 03/01/24 17:30 90 Room Air 03/01/24 17:29 Room Air 03/01/24 17:00 Room Air 03/01/24 16:00 03/01/24 15:39 Room Air 03/01/24 14:32 Room Air 03/01/24 14:00 Room Air 03/01/24 13:57 03/01/24 12:30 Room Air 03/01/24 11:00 Room Air 03/01/24 10:34 03/01/24 10:00 03/01/24 09:26 Room Air Critical Care Results & Data Vital Signs (Past 12 Hours) Vital Signs Temp Pulse Pulse Resp BP BP Pulse Ox 03/01/24 17:30 93 H 21 90 03/01/24 17:30 98 H 21 90 03/01/24 17:30 03/01/24 17:29 93 H 20 149/93 H 96 03/01/24 17:00 81 20 116/85 90 03/01/24 16:00 71 18 127/71 91 03/01/24 15:39 03/01/24 14:32 94 03/01/24 14:00 95 H 20 113/85 92 03/01/24 13:57 97 H 03/01/24 12:30 106 H 22 151/81 H 93 03/01/24 11:00 92 03/01/24 10:34 110 H 20 120/92 95 03/01/24 10:00 112 H 03/01/24 09:26 36.4 C L 123 H 25 H 147/97 H 100 Pulse Ox O2 Del Method O2 Del Method 03/01/24 17:30 Room Air 03/01/24 17:30 Room Air 03/01/24 17:30 90 Room Air 03/01/24 17:29 Room Air 03/01/24 17:00 Room Air 03/01/24 16:00 03/01/24 15:39 Room Air 03/01/24 14:32 Room Air 03/01/24 14:00 Room Air 03/01/24 13:57 03/01/24 12:30 Room Air 03/01/24 11:00 Room Air 03/01/24 10:34 03/01/24 10:00 03/01/24 09:26 Room Air Lab & Micro Results (Past 24 Hours) RBC 4.46 M/uL (4.20-5.40) 03/01/24 WBC 11.64 K/ul (4.8-10.8) H 03/01/24 Hgb 11.8 g/dl (12.0-16.0) L 03/01/24 Hct 37.2 % (37.0-47.0) 03/01/24 MCV 83.4 fL (80.0-100.0) 03/01/24 MCH 26.5 pg (25.0-34.0) 03/01/24 MCHC 31.7 g/dL (32.0-36.0) L 03/01/24 RDW Standard Deviation 42.1 fL (36.4-46.3) 03/01/24 RDW Coefficient of Variation 13.9 % (11.5-14.5) 03/01/24 Plt Count 437 K/uL (130-400) H 03/01/24 MPV 9.4 fL (9.4-12.4) 03/01/24 Neutrophils (%) (Auto) 78.6 % 03/01/24 Lymphocytes (%) (Auto) 13.4 % 03/01/24 Monocytes # (Auto) 0.62 K/uL (0.11-0.59) H 03/01/24 Eosinophils # (Auto) 0.19 K/uL (0.00-0.50) 03/01/24 Immature Granulocyte % (Auto) 0.4 % 03/01/24 Neutrophils # (Auto) 9.14 K/uL (1.40-6.50) H 03/01/24 Lymphocytes # (Auto) 1.56 K/uL (1.20-3.40) 03/01/24 Monocytes # (Auto) 0.62 K/uL (0.11-0.59) H 03/01/24 Eosinophils # (Auto) 0.19 K/uL (0.00-0.50) 03/01/24 Basophils # (Auto) 0.08 K/uL (0.00-0.20) 03/01/24 Immature Granulocyte # (Auto) 0.05 K/uL (0.01-0.20) 4 Na 137 mmol/L (136-145) 03/01/24 K 4.0 mmol/L (3.5-5.1) 03/01/24 Cl 102 mmol/L (98-107) 03/01/24 CO2 27 mmol/L (21-32) 03/01/24 Anion Gap 8 (3-11) 03/01/24 BUN 12 mg/dl (6-23) 03/01/24 Creatinine 0.69 mg/dl (0.6-1.2) 03/01/24 Estimated GFR ( Amer) 121.8 ml/min 03/01/24 Estimated GFR (Non-Af Amer) 105.1 ml/min 03/01/24 BUN/Creatinine Ratio 17.4 (10-20) 03/01/24 Glu 128 mg/dl (70-99(Fasting)) H 03/01/24 Ca 9.1 mg/dl (8.6-10.3) 03/01/24 Phosphorus Level 3.0 mg/dl (2.5-4.9) 03/01/24 Total Bilirubin 0.4 mg/dl (0.2-1.0) 03/01/24 AST 15 U/L (13-39) 03/01/24 ALT 19 U/L (7-52) 03/01/24 Alkaline Phosphatase 97 U/L (34-104) 03/01/24 TP 7.6 gm/dl (6.0-8.3) 03/01/24 Albumin 4.1 gm/dl (3.4-5.0) 03/01/24 Globulin 3.5 gm/dl (2.5-4.0) 03/01/24 Albumin/Globulin Ratio 1.2 (0.9-2) 03/01/24 Mg 1.8 mg/dl (1.7-2.4) 03/01/24 09:40 Calcium Level 9.1 mg/dl (8.6-10.3) 03/01/24 09:40 Prothromb Time International Ratio 0.9 (0.9-1.1) 03/01/24 09:5 6 Venous Blood pH 7.38 (7.36-7.41) 03/01/24 10:39 Venous Blood Partial Pressure CO2 44 mmHg (38-50) 03/01/24 10:3 9 Venous Blood Partial Pressure O2 < 20 mmHg 03/01/24 10:39 Venous Blood HCO3 26 mmol/L 03/01/24 10:39 Venous Blood Base Excess 0.5 mEq/L 03/01/24 10:39 Venous Blood Oxygen Saturation < 60.0 % 03/01/24 10:39 Diagnostic Findings (Past 24 Hours) Chest X-Ray 03/01/24 09:42 XR chest 1V portable CLINICAL HISTORY: Chest pain, nonspecific COMPARISON STUDY: Chest radiograph and chest CT February 16, 2024. FINDINGS: There is no pneumothorax. A small to moderate left pleural effusion is again noted. Associated left basilar opacity is increased. Cardiomegaly is unchanged. There is no evidence for pulmonary edema. Right lung is clear. IMPRESSION: Small to moderate left pleural effusion with increase in left basilar airspace opacity since prior chest radiograph and chest CT. ACT 112: Negative or not required by law. Electronically signed by: Judah Claudio M.D. 03/01/2024 10:11 AM Chest CTA 03/01/24 10:34 CT ANGIOGRAPHY OF THE CHEST, PULMONARY EMBOLUS PROTOCOL CLINICAL HISTORY: sob, tachcardy, r/o PE COMPARISON STUDY: Chest CT February 16, 2024. Chest radiograph performed earlier today. TECHNIQUE: Following IV administration of 118 mL of Optiray, helical axial images of the chest were obtained utilizing the pulmonary embolus protocol. Maximal intensity projections and sagittal and coronal reformats were viewed on an independent 3D workstation. IV contrast was administered without complication. Automated exposure control was utilized for the study. A dose lowering technique was utilized adhering to the principles of ALARA. CT DOSE: 809.7 mGy.cm FINDINGS: Mediastinal lymph nodes have slightly increased in size since CT of February 16, 2024. A prevascular node on image [id number] measures 2 x 0.9 cm. No pulmonary emboli are identified. There is no thoracic aortic dissection. Size the heart is normal. A moderate-sized pericardial effusion has increased in size since prior exam. There is suggestion of mild pericardial thickening with minimal enhancement. A moderate left pleural effusion has increased in size since prior exam. Subpleural left lower lobe and lingular opacity is present. There is no central obstructing mass. No pneumothorax or right pleural effusion is present. IMPRESSION: 1. No pulmonary emboli identified. 2. Increase in size of a moderate pericardial effusion. Mild pericardial thickening and minimal enhancement raises the possibility of pericarditis. 3. Increase in size of a moderate left pleural effusion. Associated left lower lobe opacity favors atelectasis. Pneumonia is considered less likely. 4. Slightly enlarged mediastinal lymph nodes which are likely reactive. ACT 112: Negative or not required by law. Electronically signed by: Judah Claudio M.D. 03/01/2024 11:28 AM Chest X-Ray 03/01/24 15:25 SINGLE VIEW CHEST CLINICAL HISTORY: Status post thoracentesis FINDINGS: 2 AP, portable, semierect chest radiographs are compared to chest x- ray and chest CT performed earlier the same day 03/01/2024. The examination is degraded by portable technique and apical lordotic positioning. The cardiac silhouette is enlarged, likely related to pericardial effusion and correlated with today's chest CT. There is a small left pleural effusion with left basilar consolidation. This has decreased in size from today's earlier examination right lung appears clear. No pneumothorax is seen. The bony thorax is grossly intact. IMPRESSION: 1. No pneumothorax is seen post procedure. 2. Small residual left pleural effusion with left basilar consolidation. 3. Enlargement of the cardiac silhouette likely represents pericardial effusion when correlated with today's chest CT. ACT 112: Negative or not required by law. Electronically signed by: Raf Landaverde M.D. 03/01/2024 4:06 PM I & O Totals 24 Hours 02/29/24 03/01/24 03/02/24 06:59 06:59 06:59 Intake Total 1250 / 1250 Output Total 1100 / 1100 Balance 150 / 150 Cumulative 03/01/24 09:23 thru 03/01/24 17:30 Intake Total 1250 Output Total 1100 Balance 150 RT Ventilator Mngmt (Last Documented) Ventilator Ordered Settings Respiratory Rate 21 03/01/24 17:30 Ventilator - PT Measurements Respiratory Rate 21 PG Care Time/CCT Total # of Minutes Spent Total Time Spent with Patient: Total time spent is greater than 50% in coordination of care (as documented) at patient's floor/unit and/or counseling patient: Coding Level of Care Code 81980 IN/OBS CONSULT LVL 4,60M Diagnoses Pleural effusion J90
--- NOTE | 2024-03-01 18:51 | Procedure Note ---
Procedure Note Date of Service March 01, 2024 Note Procedure: Diagnostic therapeutic ultrasound-guided catheter thoracentesis, left Manager Application Development: Dr. Da Hicks Indication: Pleural effusion Consent: Signed by patient and verified with timeout prior to procedure Anesthesia: 10 mL's 1% lidocaine without epinephrine local. Procedure: Consent was verified and timeout performed. Appropriate imaging studies were reviewed prior to the procedure. Patient was placed in a seated position and limited thoracic ultrasound was performed of the bilateral chest. Moderate- sized effusion was noted on the left with no significant effusion on the right. Site appropriate for thoracentesis was selected. The skin was prepped and draped in normal sterile fashion. Lidocaine was used for local analgesia. Fluid was aspirated via the finder needle. A small skin viraj was made with the scalpel and the catheter over the needle apparatus was advanced over the rib into the pleural space. Using the syringe one-way valve system, a total of 1000 mL's of clear, slightly green-tinged fluid was removed. Procedure was terminated due to inability to withdraw additional fluid. The catheter was removed and observed to be intact. A sterile dressing was applied. Post procedure chest x-ray was demonstrated no pneumothorax with decrease of the pleural effusion. Fluid was sent for cytology, cell count differential, Gram stain and culture, LDH, pH, glucose, total protein, triglycerides, and cholesterol. The patient tolerated the procedure well without obvious complication Coding CPT Codes Pulmonary/Thoracic - Pulmonary and Thoracic: 89941 Thoracentesis w imaging ([id number]) [facility] Procedure Codes (Charges) Pulmonary/Thoracic Procedure 1: Pulmonary and Thoracic: 91557 Thoracentesis w imaging
[2024-03-01] MEDS: ENOXAPARIN INJ 40 MG/0.4 ML SYR SQ SCH (20:03)
[2024-03-02] MEDS: DOXYCYCLINE HYCLATE 100 MG in DEXTROSE 5% MINI-B 100 ML IV SCH (00:34)
--- OUTSIDE RECORDS SUMMARY | 2024-03-02 04:24 | External Medical Summary | Summary of Care ---
Author Name Unknown Organization [facility] Address [address] [place] [address] Phone [phone] Care Team Providers Care Data Entry Associate Name Role Phone Usama Block MD Primary Care Provider + Reason for Visit * Reason Comments NEW PATIENT Here new pulm . Abno rmal CT. Angio . persistent infilitrate. No pneumonia symptoms. * Evaluate & Treat - Unlimited Visits (Within 3 days (urgent)) - Pending Review Specialty Diagnoses / Procedures Referred By Delon glass Referred To Contact Pulmonary Diseases / Pulmonary Diagnoses Abnormal CT of the chest Lung infiltrate Usama Block MD [address] [place] [address] Referral ID Status Reason Start Date Expiration Date Visits Requested Visits Authorized [id number] Pending Review Specialty Services Required 02/22/[phone] Encounter Details Date Type Department Care Team (Late st Contact Info) Description 02/26/2024 3:20 PM EDT Office Visit Pulmonary Medicine, [facility] [address] [place] [address] Caden Melara, DO [address] [place] [address] Pulmonary infiltrates*; Pleural effusion; Psoriatic arthritis (HCC) Allergies Active Allergy Reactions Criticality Noted Date Comments Sulfa Antibiotics 01/17/2003 leg cramps,rash as a child documented as of this encounter (statuses as of 02/26/2024) Medications Medication Sig Dispensed Refills Start Date End Date Status PROBIOTIC PO CAPS 1 tablet daily 0 Act abdirashid Loratadine 10 MG Oral Tablet Take 1 Tablet by mouth in the morning. 30 Tab 11 04/14/2020 Active Mometasone Furoate 50 MCG/ACT Nasal SuspensionIndication s:Acute non-recurrent maxillary sinusitis Administer 2 Sprays into nostril in the morning. 18 g 0 10/29/2022 Active Ozempic (1 MG/DOSE) 4 MG/3ML Subcutaneous Solution Pen-injector (Semaglutide (1 MG/DOSE)) Inject 1 mg under the skin once a week. 9 mL 0 09/05/2023 Active Betamethasone Dipropionate 0.05 % External Lotion (Diprosone) daily. 0 02/16/2024 Active DULoxetine HCl 30 MG Oral Capsule Delayed Release Particles (Cymbalta) Take 1 Capsule by mouth in the morning. 0 02/15/2024 Active Tremfya 100 MG/ML Subcutaneous Solution Pen-injector every 8 weeks. 0 02/22/2024 Active Omeprazole 20 MG Oral Capsule Delayed Release (PriLOSEC)Indication s:Atypical chest pain Take 1 Capsule by mouth in the morning. 1 hour before the first meal of the day. 30 Capsule 1 02/22/2024 Active Benzonatate 100 MG Oral Capsule (Tessalon Perles)Indications:C ough Take 1 Capsule by mouth 3 times a day as needed for Cough. Do not cut, crush, or chew. 50 Capsule 1 02/26/2024 Active documented as of this encounter (statuses as of 02/26/2024) Active Problems Problem Noted Date Diagnosed Date Prediabetes 02/18/2024 Plaque psoriasis 03/14/2023 Obesity, morbid (more than 1 00 lbs over ideal weight or BMI > 40) 03/19/2019 Enlarged adenoids 03/19/2019 Deviated nasal septum 02/04/2019 Hypertrophy of both inferior nasal turbinates Pseudotumor cerebri Overview: followed by Dr Bernabe Papilledema Overview: followed by Dr Frantz Lema documented as of this encounter (statuses as of 02/26/2024) Resolved Problems Problem Noted Date Diagnosed Date [...] pseudotumor cerebri and papilledema for further recommendations- MFM recommendations:Repeat evaluation in 7-8 weeks for second [...] as of this encounter (statuses as of 02/26/2024) Immunizations Name Administration Dates Next Due COVID-19 mRNA, LNP-s, No Pre serve, 2-Dose Series ([employer]) 03/31/2021,03/10/2021 H1N1 2009 Influenza, IM 09/11/2009 Hepatitis [...] 0 07/14/2006 - 07/14/2014 Smokeless Tobacco: Never Tobacco Cessation:Counseling Given: Not Answered Alcohol Use Standard Drinks/Week Comments Yes 0 [...] on file documented as of this encounter Last Filed Vital Signs Vital Sign Reading Time Taken Comments Blood Pressure 138/76 02/26/2024 3:26 PM EDT Pulse 110 02/26/2024 3:26 PM EDT Temperature 36.4 C (97.5 F) 02/26/2024 3:26 PM ED T Respiratory Rate 16 02/26/2024 3:26 PM EDT Oxygen Saturation 91% 02/26/2024 3:28 PM EDT ra-amb Inhaled Oxygen Concentration - - Weight 133.8 kg (295 lb) 02/26/2024 3:26 PM EDT Height 165.1 cm (5' 5") 02/26/2024 3:26 PM EDT Body Mass Index 49.09 02/26/2024 3:26 PM EDT documented in this encounter Progress Notes * Caden Melara DO - 02/26/2024 3:25 PM EDT Images from the original note were not included. INITIAL PULMONARY CONSULTATION NOTE REFERRING PHYSICIAN: Usama Block MD REASON FOR REFERRAL: Abnormal chest CT HPI: Fabby Cerrato is a 43 year old female presenting for evaluation of abnormal chest CT. She had a hospitalization at [facility] in December where she reports presenting with severe back pain which she initially attributed to her psoriatic arthritis. She denies having any fevers chills or sweats. She denies having coughing or sputum. She did have chest x-ray and chest CT which were suggestive of pneumonia and she was treated with antibiotics. She then had an episode in February with sharp pains in her chest and was again evaluated in the ED and kept overnight. She was evaluated by Cardiology due to concern for possible pericarditis but was told this was unlikely, she reports she was told NSAIDs maybe leading to fluid retention. She denies any prior lung diagnosis. She recalls maybe using albuterol with an upper respiratory infection in the past. She denies any childhood asthma or respiratory symptoms. She does have mild seasonal allergies and takes as needed Claritin or Flonase. She denies a history of frequent upper respiratory infections or bronchitis episodes. She has had psoriatic arthritis diagnosed since 2019. She is currently on Tremfya and Cymbalta. She has not taking any NSAIDs. Her back pain, rib pain, chest pain have all resolved. 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 2 dogs, daughter has a cat that she avoids being around the cat due to allergy symptoms No farming or outdoor animal exposures No mold or water problems in the house Past Medical History: Diagnosis Date Enlarged adenoids 03/19/2019 Obesity, morbid (more than 100 lbs over ideal weight or BMI > 40) (HCC) 03/19/[address]ema [address] Frantz Lema Prediabetes 02/18/2024 Pseudotumor cerebri [address] Bernabe Past Surgical History: Procedure Laterality Date DELIVERY 2003, 2009 X 2 LAPAROSCOPY; CHOLECYSTECTOMY 02/25/2019 Thomas LIGATE/CUT OVIDUCT(S) tubal OB History 3 Para 2 Term 2 0 AB 1 Living 2 SAB 1 IAB 0 Ectopic 0 Multiple 0 Live Births 2 Obstetric Comments C/Sx2, no abn paps/stds Review of patient's allergies indicates: Allergen Reactions Sulfa Antibiotics leg cramps,rash as a child Current Outpatient Medications Medication Sig Dispense Refill PROBIOTIC PO CAPS 1 tablet daily Loratadine 10 MG Oral Tablet Take 1 Tablet by mouth in the morning. 30 Tab 11 Mometasone Furoate 50 MCG/ACT Nasal Suspension Administer 2 Sprays into nostril in the morning. 18 g 0 Ozempic (1 MG/DOSE) 4 MG/3ML Subcutaneous Solution Pen-injector (Semaglutide (1 MG/DOSE)) Inject 1 mg under the skin once a week. 9 mL 0 Betamethasone Dipropionate 0.05 % External Lotion (Diprosone) daily. DULoxetine HCl 30 MG Oral Capsule Delayed Release Particles (Cymbalta) Take 1 Capsule by mouth in the morning. Tremfya 100 MG/ML Subcutaneous Solution Pen-injector every 8 weeks. Omeprazole 20 MG Oral Capsule Delayed Release (PriLOSEC) Take 1 Capsule by mouth in the morning. 1 hour before the first meal of the day. 30 Capsule 1 Benzonatate 100 MG Oral Capsule (Tessalon Perles) Take 1 Capsule by mouth 3 times a day as needed for Cough. Do not cut, crush, or chew. 50 Capsule 1 No current facility-administered medications for this visit. FAMILY HISTORY: Family History Problem Relation Age of Onset Breast Cancer Mother 50s Arthritis Mother Cancer Mother BREAST CANCER No Past Hx Father No Past Hx Brother No Past Hx Brother Breast Cancer Grandmother (Maternal) Colon cancer Grandfather (Paternal) Stroke Grandfather (Paternal) 73 cause of Neurological Disorder Grandfather (Paternal) PAPILLADEMA No Past Hx None MGA and MGM ovarian cancer Breast Cancer Cousin (Maternal) Ovarian cancer Cousin (Maternal) Breast Cancer Aunt (Maternal) Numerous Great Aunts Breast Cancer Uncle (Maternal) PHYSICAL EXAM: BP 138/76 | Pulse 110 | Temp 36.4 C (97.5 F) (Tympanic) | Resp 16 | Ht 1.651 m (5' 5") | Wt 133.8 kg (295 lb) | SpO2 91% Comment: ra-amb | BMI 49.09 kg/m | BSA 2.48 m Constitutional: no acute distress, able to converse without apparent dyspnea Eyes: anicteric, pupils equal ENT: external ears normal, no nasal discharge Neck: trachea midline, JVP normal CV: normal rate and rhythm, no murmurs Chest: normal respiratory effort, clear to auscultation, no wheezing or crackles Extremities: no clubbing, no cyanosis Neuro: alert, oriented Psych: normal mood and affect Chest X-ray: 02/16/2024 personally visualized: Peripheral left mid lung infiltrate, possible small left pleural effusion Chest CT scan: 02/17/2024: Assessment: R91.8 Pulmonary infiltrates (primary encounter diagnosis) - based on most recent CT report sounds to be more consistent with atelectasis but will obtain imaging for review to determine if additional workup or follow-up is needed J90 Pleural effusion L40.50 Psoriatic arthritis (HCC) Recommendations and Plans: Obtain [address] chest from [facility] imaging into PACS for personal review Follow up one-month Caden Melara DO Associate - Pulmonary and Critical Care Medicine [facility] [address] [facility] [address] documented in this encounter Nursing Notes * Yari Quiñones LPN - 02/26/2024 3:28 PM EDT Chief Complaint Patient presents with NEW PATIENT Here new pulm . Abnormal CT. Angio . persistent infilitrate. No pneumonia symptoms. MMRC Dyspnea Scale = 0 (I only get breathless with strenuous exercise) documented in this encounter Plan of Treatment Upcoming Encounters Date Type Department Care Team (Late st Contact Info) Description 03/07/2024 8:00 AM EDT Nurse Only Ancillary [facility] [address] [facility] [place] [address] Nurse, Int Med [address] [facility] [place] [address] 05/30/2024 10:00 AM EDT Office Visit General Internal Medicine [facility] [address] [facility] [place] [address] Usama Block MD [address] [facility] [place] [address] Scheduled Referrals Name Type Priority Associated Diagnoses Orde r Schedule PULMONARY REFERRAL OP Referral Within 3 days (urgent) Abnormal CT of the chest Lung infiltrate Ordered: 02/22/2024 Health Maintenance Due Date Last Done Comments HPV/Co-Test 2008 Cervical Cancer Screening 05/22/2022 Pap Smear 05/22/2022 05/22/2019, 0301/2016, 07/10/2014, Additional history exists COVID-19 Vaccine ( season) 2023 03/31/2021, 03/10/2021 Cologuard 2023 Colonoscopy 2023 Colorectal Cancer Screening 2023 Fecal Occult Blood Test 2023 Sigmoidoscopy 2023 Depression Screening 03/14/2024 03/14/2023 Mammogram 09/05/2024 09/05/2023, 08/14, 04/16/2020, Additional history exists HbA1c 02/15/2025 02/16/2024 Lipid Panel 06/12/2028 06/12/2023 DTaP,Tdap,and Td Vaccines [...] as of this encounter Visit Diagnoses Diagnosis Pulmonary infiltrates- Primary Other nonspecific abnormal finding of lung field Pleural effusion Unspecified pleural effusion Psoriatic arthritis (HCC) Psoriatic arthropathy documented in this encounter Care Teams Data Entry Associate Relationship Specialty Start Date End Date Usama Block MD [address] [place] [address] PCP - General Internal Medicine 06/08/22 documented as of this encounter
--- OUTSIDE RECORDS SUMMARY | 2024-03-02 04:24 | External Medical Summary | Summary of Care ---
Author Name Unknown Organization [facility] Address [address] [place] [address] Phone [phone] Care Team Providers Care Oyster Floater Name Role Phone Usama Block MD Primary Care Provider + Encounter Details Date Type Department Care Team (Late st Contact Info) Description 02/18/2024 Orders Only General Internal Medicine [facility] [address] [facility] [place] [address] Usama Block MD [address] [place] [address] Prediabetes*; Plaque psoriasis Allergies Active Allergy Reactions Criticality Noted Date Comments Sulfa Antibiotics 01/17/2003 leg cramps,rash as a child documented as of this encounter (statuses as of 02/19/2024) Medications Medication Sig Dispensed Refills Start Date End Date Status PROBIOTIC PO CAPS 1 tablet daily 0 Act abdirashid Loratadine 10 MG Oral Tablet Take 1 Tablet by mouth in the morning. 30 Tab 11 04/14/2020 Active Tremfya 100 MG/ML Subcutaneous Solution Pen-injector every 8 weeks. Last shot was 11/18/22. 0 04/19/2022 Active Mometasone Furoate 50 MCG/ACT Nasal SuspensionIndicatio ns:Acute non-recurrent maxillary sinusitis Administer 2 Sprays into nostril in the morning. 18 g 0 10/29/2022 Active Ozempic (1 MG/DOSE) 4 MG/3ML Subcutaneous Solution Pen-injector (Semaglutide (1 MG/DOSE)) Inject 1 mg under the skin once a week. 9 mL 0 09/05/2023 Active Etodolac 400 MG Oral Tablet Take 1 Tablet by mouth in the morning and 1 Tablet before bedtime. 0 Active Cefdinir 300 MG Oral Capsule (Omnicef) Take 1 Capsule by mouth in the morning and 1 Capsule before bedtime. Do all this for 10 days. For 10 days.. 20 Capsule 0 02/16/2024 02/26/2024 Active Azithromycin 250 MG Oral Tablet (Zithromax Z-Bonifacio) Take two tablets by mouth on first day, then 1 tablet daily until gone 6 Tablet 0 02/16/2024 Active documented as of this encounter (statuses as of 02/19/2024) Active Problems Problem Noted Date Diagnosed Date Prediabetes 02/18/2024 Plaque psoriasis 03/14/2023 Obesity, morbid (more than 1 00 lbs over ideal weight or BMI > 40) 03/19/2019 Enlarged adenoids 03/19/2019 Deviated nasal septum 02/04/2019 Hypertrophy of both inferior nasal turbinates Pseudotumor cerebri Overview: followed by Dr Bernabe Papilledema Overview: followed by Dr Frantz Lema documented as of this encounter (statuses as of 02/19/2024) Resolved Problems Problem Noted Date Diagnosed Date [...] pseudotumor cerebri and papilledema for further recommendations- [facility] recommendations:Repeat evaluation in 7-8 weeks for second trimester screening sonography and recommend quad serum screening between 15-22 wks gestation (pt declines). Patient received flu vaccine. 08/13/2009 Julia Brown RN Patient received H1N1 vaccine. 09/11/2009 Dayanara Mancilla RN ICD-10 update of inactive term Normal , first 12/09/2003 08/01/2009 NONE 11/11/2003 05/29/2009 Encounter for supervision of other normal 11/11/2003 06/15/2009 Overview: ICD-10 update of inactive term documented as of this encounter (statuses as of 02/19/2024) Immunizations Name Administration Dates Next Due COVID-19 mRNA, LNP-s, No Pre serve, 2-Dose Series ([employer]) 03/31/2021,03/10/2021 H1N1 2008 Influenza, IM 09/11/2009 Hepatitis B, [...] Care Team (Late st Contact Info) Description 02/22/2024 3:20 PM EDT Office Visit General Internal Medicine [facility] [address] [facility] [place] [address] Usama Block MD [address] [facility] [place] [address] 05/30/2024 10:00 AM EDT Office Visit General Internal Medicine [facility] [address] [facility] [place] [address] Usama Block MD [address] [facility] [place] [address] Pending Results Name Type Priority Associated Diagnoses Date /Time OUTSIDE LAB-CORONAVIRUS (COVID-19) Lab Routine 02/16/2024 Scheduled Orders Name Type Priority Associated Diagnoses Orde r Schedule HEMOGLOBIN A1C Lab Routine Prediabetes Expected: 08/19/2024 (Approximate), Expires: 02/17/2025 CRP (INFLAMMATORY MARKER) Lab Routine Plaque psoriasis Expected: 08/19/2024 (Approximate), Expires: 02/17/2025 Health Maintenance Due Date Last Done Comments [...] as of this encounter Visit Diagnoses Diagnosis Prediabetes- Primary Other abnormal glucose Plaque psoriasis Other psoriasis documented in this encounter Care Teams Oyster Floater Relationship Specialty Start Date End Date Usama Block MD [address] [place] [address] PCP - General Internal Medicine 06/08/22 documented as of this encounter
--- OUTSIDE RECORDS SUMMARY | 2024-03-02 04:24 | External Medical Summary | Summary of Care ---
Author Name Unknown Organization [facility] Address [address] [place] [address] Phone [phone] Care Team Providers Care Greeting Card Editor Name Role Phone Usama Block MD Primary Care Provider + Reason for Referral * Evaluate & Treat - Unlimited Visits (Within 3 days (urgent)) - Pending Review Specialty Diagnoses / Procedures Referred By Delon glass Referred To Contact Pulmonary Diseases / Pulmonary Diagnoses Abnormal CT of the chest Lung infiltrate Usama Block MD [address] [facility] [place] [address] [facility] [place] [id number] Referral ID Status Reason Start Date Expiration Date Visits Requested Visits Authorized [id number] Pending Review Specialty Services Required 02/22/[phone] Question Answer Referral Priority Within 3 days (urgent) Where should this appointment be scheduled? [facility] Reason for Referral? Other Comments Abnormal CT angio, persistent infiltrate, no pneumonia symptoms, ?bronch for further evaul Reason for Visit * Reason Onset Date Comments Hospital Follow-Up Hospital Follow-Up 02/22/2024 Encounter Details Date Type Department Care Team (Late st Contact Info) Description 02/22/2024 3:20 PM EDT Office Visit General Internal Medicine [place] [address] [place] [address] Usama Block MD [address] [place] [address] Hospital discharge follow-up*; Abnormal CT of the chest; Lung infiltrate; Atypical chest pain; Decreased hemoglobin; Elevated blood pressure, situational Allergies Active Allergy Reactions Criticality Noted Date Comments Sulfa Antibiotics 01/17/2003 leg cramps,rash as a child documented as of this encounter (statuses as of 02/22/2024) Medications Medication Sig Dispensed Refills Start Date End Date Status PROBIOTIC PO CAPS 1 tablet daily 0 Act abdirashid Loratadine 10 MG Oral Tablet Take 1 Tablet by mouth in the morning. 30 Tab 11 0 Active Mometasone Furoate 50 MCG/ACT Nasal SuspensionIndicati ons:Acute non-recurrent maxillary sinusitis Administer 2 Sprays into nostril in the morning. 18 g 0 2 Active Ozempic (1 MG/DOSE) 4 MG/3ML Subcutaneous Solution Pen-injector (Semaglutide (1 MG/DOSE)) Inject 1 mg under the skin once a week. 9 mL 0 3 Active Betamethasone Dipropionate 0.05 % External Lotion (Diprosone) daily. 0 4 Active DULoxetine HCl 30 MG Oral Capsule Delayed Release Particles (Cymbalta) Take 1 Capsule by mouth in the morning. 0 4 Active Tremfya 100 MG/ML Subcutaneous Solution Pen-injector every 8 weeks. 0 4 Active Omeprazole 20 MG Oral Capsule Delayed Release (PriLOSEC)Indicati ons:Atypical chest pain Take 1 Capsule by mouth in the morning. 1 hour before the first meal of the day. 30 Capsule 1 4 Active Tremfya 100 MG/ML Subcutaneous Solution Pen-injector every 8 weeks. Last shot was 11/18/22. 0 2 02/22/20 24 Discontinued(Re fill) Erythromycin 5 MG/GM Ophthalmic OintmentIndication s:Acute bacterial conjunctivitis of left eye Instill 0.4 Inches into the left eye in the morning and 0.4 Inches at noon and 0.4 Inches in the evening and 0.4 Inches before bedtime. Do all this for 10 days. Apply to affected eye(s) until redness and discharge resolved.. 3.5 g 0 3 02/22/20 24 Discontinued(Pa tient preference/disc ontinuation) Etodolac 400 MG Oral Tablet Take 1 Tablet by mouth in the morning and 1 Tablet before bedtime. 0 02/22/20 24 Discontinued Cefdinir 300 MG Oral Capsule (Omnicef) Take 1 Capsule by mouth in the morning and 1 Capsule before bedtime. Do all this for 10 days. For 10 days.. 20 Capsule 0 4 02/22/20 24 Discontinued(Pa tient preference/disc ontinuation) Azithromycin 250 MG Oral Tablet (Zithromax Z-Bonifacio) Take two tablets by mouth on first day, then 1 tablet daily until gone 6 Tablet 0 4 02/22/20 24 Discontinued(Pa tient preference/disc ontinuation) Sulindac 150 MG Oral Tablet Take 1 Tablet by mouth in the morning and 1 Tablet before bedtime. 0 3 02/22/20 24 Discontinued documented as of this encounter (statuses as of 02/22/2024) Active Problems Problem Noted Date Diagnosed Date Prediabetes 02/18/2024 Plaque psoriasis 03/14/2023 Obesity, morbid (more than 1 00 lbs over ideal weight or BMI > 40) 03/19/2019 Enlarged adenoids 03/19/2019 Deviated nasal septum 02/04/2019 Hypertrophy of both inferior nasal turbinates Pseudotumor cerebri Overview: followed by Dr Bernabe Papilledema Overview: followed by Dr Frantz Lema documented as of this encounter (statuses as of 02/22/2024) Resolved Problems Problem Noted Date Diagnosed Date [...] as of this encounter (statuses as of 02/22/2024) Immunizations Name Administration Dates Next Due COVID-19 mRNA, LNP-s, No Pre serve, 2-Dose Series (Cluey) 03/31/2021,03/10/2021 H1N1 2009 Influenza, IM 09/11/2009 Hepatitis [...] Sign Reading Time Taken Comments Blood Pressure 122/64 02/22/2024 3:22 PM EDT Pulse 73 02/22/2024 3:22 PM EDT Temperature 36.5 C (97.7 F) 02/22/2024 3:22 PM ED T Respiratory Rate 16 02/22/2024 3:22 PM EDT Oxygen Saturation 94% 02/22/2024 3:22 PM EDT Inhaled Oxygen Concentration - - Weight 133.5 kg (294 lb 6.4 oz) 02/22/2024 3:22 PM EDT Height 165.1 cm (5' 5") 02/22/2024 3:22 PM EDT Body Mass Index 48.99 02/22/2024 3:22 PM EDT documented in this encounter Progress Notes * Usama Block MD - 02/22/2024 4:05 PM EDT Chief Complaint Patient presents with Hospital Follow-Up Hospital Follow-Up SUBJECTIVE: Fabby Cerrato is a 43 year old female with PMH as below who presents for hospital follow up. Went to [facility] ER 02/16/24-02/17/24 for acute right sided chest pain that started the day of admission. Sharp, mid to right side. No cough, fevers, chills, didn't feel ill. Pain with deep breath. Has been seeing rheum for psoriatic arthritis, was on nsaid, stopped last week as not helping, now on cymbalta. Outpatient x-ray 02/15 showed persistent LEFT sided infiltrate. She notes no severe cough, fever, doesn't feel ill. CT angio was done at [facility], no pe, but has atelectasis. She was seen by cardiology, feltcp atypical for cardiac, had echo, was ok. Sent home next day. Since then chest pain is better, breathing better, no pain with inspiration .does have ongoing fatigue. No fevers, chills. No reflux Patient Active Problem List Diagnosis Code Pseudotumor cerebri G93.2 Papilledema H47.10 Deviated nasal septum J34.2 Hypertrophy of both inferior nasal turbinates J34.3 Obesity, morbid (more than 100 lbs over ideal weight or BMI > 40) ([facility]) E66.01 Enlarged adenoids J35.2 Plaque psoriasis L40.0 Prediabetes R73.03 Current Outpatient Medications Medication Sig Dispense Refill [...] meal of the day. 30 Capsule 1 No current facility-administered medications for this visit. Review of patient's allergies indicates: Allergen Reactions Sulfa Antibiotics leg cramps,rash as a child Health Maintenance Due Topic Date Due Cervical Cancer Screening 05/22/2022 COVID-19 Vaccine ( season) 2023 Colorectal Cancer Screening Never done Depression Screening 03/14/2024 ROS: CONSTITUTIONAL: No weakness and No fevers, sweats, or chills EYE: No recent significant change in vision and No eye pain, redness, discharge PULMONARY: No rales CARDIOVASCULAR: No orthopnea, No paroxysmal nocturnal dyspnea, No edema, No palpitations, and No syncope ALL OTHER SYSTEMS NEGATIVE I reviewed social, PMH, PSH, and family history and updated where needed. 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 Employer: [employer] Comment: [employer] Tobacco Use Smoking status: Former Current packs/day: 0.00 Average packs/day: 0.5 packs/day for 8.0 years (4.0 ttl pk-yrs) Types: Cigarettes Start date: 07/14/2006 Quit date: 07/14/2014 Years since quittin.6 Smokeless tobacco: Never Vaping Use Vaping Use: Never used Substance and Sexual Activity Alcohol use: Yes Comment: Very rare Drug use: No Sexual activity: Yes Partners: Male Comment: tubal Other Topics Concern Service Not Asked Blood Transfusions Not Asked Caffeine Concern Not Asked Occupational Exposure Not Asked Hobby Hazards Not Asked Sleep Concern Not Asked Stress Concern Not Asked Weight Concern Not Asked Special Diet Not Asked Back Care Not Asked Exercise Not Asked Bike Helmet Not Asked Seat Belt Yes Self-Exams Yes Comment: breast Social History Narrative Not on file Social Determinants of Health Financial Resource Strain: Not on file Food Insecurity: No Food Insecurity (03/14/2023) Hunger Vital Sign Worried About Running Out of Food in the Last Year: Never true Ran Out of Food in the Last Year: Never true Transportation Needs: Not on file Physical Activity: Not on file Stress: Not on file Social Connections: Not on file Intimate Partner Violence: Not on file Housing Stability: Not on file Past Medical History: Diagnosis Date Enlarged adenoids 03/19/2019 Obesity, morbid (more than 100 lbs over ideal weight or BMI > 40) (HCC) 03/19/2019 [address]illedema [address] Frantz Lema Prediabetes 02/18/2024 Pseudotumor cerebri [address] Bernabe Past Surgical History: Procedure Laterality Date DELIVERY 2003, 2009 X 2 LAPAROSCOPY; CHOLECYSTECTOMY 02/25/2019 Thomas LIGATE/CUT OVIDUCT(S) tubal Family History Problem Relation Age of Onset Breast Cancer Mother 50s Arthritis Mother Cancer Mother BREAST CANCER No Past Hx Father Breast Cancer Grandmother (Maternal) Colon cancer Grandfather (Paternal) Stroke Grandfather (Paternal) 73 cause of Neurological Disorder Grandfather (Paternal) PAPILLADEMA No Past Hx Brother No Past Hx Brother No Past Hx None MGA and MGM ovarian cancer Breast Cancer Aunt (Maternal) Numerous Great Aunts Breast Cancer Uncle (Maternal) Breast Cancer Cousin (Maternal) Ovarian cancer Cousin (Maternal) OBJECTIVE: PHYSICAL EXAM: BP 122/64 | Pulse 73 | Temp 36.5 C (97.7 F) (Tympanic) | Resp 16 | Ht 1.651 m (5' 5") | Wt 133.5 kg (294 lb 6.4 oz) | SpO2 94% | BMI 48.99 kg/m | BSA 2.47 m General: alert, healthy, and no distress Head: Normocephalic, No masses, lesions, tenderness or abnormalities Eye Exam: conjunctiva are pink and non-injected, sclera clear Ears: External ears normal, Canals clear, TM's Normal Heart: regular rate & rhythm, no murmur, no gallops, PMI non-displaced, S-1 normal, and S-2 normal Lungs: normal respiratory rate and rhythm, lungs clear to auscultation Psych: normal affect, no flight of ideas or tangential thought, good eye contact, no pressured speech 02/16/24 xray: IMPRESSION Left lung infiltrate. Er d/c summary: This morning, patient woke up with pleuritic right-sided chest pain with shortness of breath. No unusual cough symptoms. Denies fluid retention. Not sure about sick contacts. No prior episodes as per patient. (1) Chest pain: 43-year-old female with history of psoriatic arthritis, etc. presenting with acute right-sided chest pain, etc. ATYPICAL CHEST PAIN, LIKELY COSTOCHONDRITIS Troponins negative, EKG no signs of acute ischemia or infarct Acute coronary syndrome ruled CXR: IMPRESSION: Small left pleural effusion with persistent left basilar consolidation suggestive of pneumonia. Similar findings were present on the 12/21/[address] chest: FINDINGS: Pulmonary arteries: No pulmonary embolism. Aorta: No acute findings. Normal caliber. No dissection. Lungs: Bilateral atelectasis left greater than right. Pleural space: Small left pleural effusion. Heart: Small pericardial effusion. Bones/joints: No acute fracture. Soft tissues: Unremarkable. Lymph nodes: Unremarkable. IMPRESSION: 1. No pulmonary embolism. 2. Bilateral atelectasis left greater than right. 3. Small left pleural effusion. 4. Small pericardial effusion. Initial thought process was possible pericarditis Blow Mold Technician consulted - Dr Sanchez Echocardiogram: Normal EF, no wall motion abnormalities, no pericardial effusion appreciated, no valvular pathologies As per cardiology service, chest pain noncardiac, most likely related to pneumonia, chronic cough with costochondritis No further cardiac testing indicated CT chest personally reviewed Showing small left-sided pleural effusion, persistent infiltrates Recommended pulmonology evaluation, patient prefers to have this done as an outpatient She denies fever, left-sided chest pain, shortness of breath at home She has no leukocytosis Please refer to pulmonology for further evaluation of persistent chest infiltrate and small left-sided pleural effusion in setting of recent pneumonia hx psoriatic arthritis on Tremfya, patient to start recent Cymbalta prescription from economic analyst hx pseudotumor cerebri prediabetes, hemoglobin A1c of 6.3 couple of months ago past tobacco abuse. Disposition PCP follow-up in 1 week Please refer to utilization management nurse Cardiology note: Her echo today is normal EF and no wall motion abnormalities, no pericardial effusion appreciated-sometimes the CT Chest can over call this and no valvular pathology Pt's lipids were ok recently as an outpt Her chest pain is non-cardiac and most likely related to her PNA and chronic cough with chostrocontritis No further cardiac in patient or out pt testing necessary-she does not need the out pt echo. She is ok for discharge home from a cardiac perspective. CT: 1. No pulmonary embolism. 2. Bilateral atelectasis left greater than right. 3. Small left pleural effusion. 4. Small pericardial effusion. ASSESSMENT: Z09 Hospital discharge follow-up (primary encounter diagnosis) R93.[address] of the chest R91.8 Lung infiltrate R07.89 Atypical chest pain R71.0 Decreased hemoglobin R03.0 Elevated blood pressure, situational PLAN: Hospital discharge follow-up (Primary) - DISCH MED RECON CUR MED LIS As below Abnormal CT of the chest - PULMONARY REFERRAL OP - CRP (INFLAMMATORY MARKER); Future; Expected date: 02/22/2024 Persistent infiltrate w/o infectious symptoms, perhaps autoimmune or other. Suggest pulm eval for possible bronch/further work up, agrees Await their visit Lung infiltrate - PULMONARY REFERRAL OP As above Monitor symptoms Atypical chest pain - Omeprazole 20 MG Oral Capsule Delayed Release (PriLOSEC); Take 1 Capsule by mouth in the morning.1 hour before the first meal of the day. Was better with nsaid in er per Fabby, ramon montoya, appreciate cardiology aid. Would add ppi as could have reflux component given long nsaid use - monitor for vomiting, nausea, dysphagia, she will let me know Decreased hemoglobin - COMPREHENSIVE METABOLIC PANEL; Future; Expected date: 02/22/2024 - CBC WITH WBC DIFFERENTIAL; Future; Expected date: 02/22/2024 Elevated blood pressure, situational 140's at home with wrist, ok here Monitor, bp check 2 weeks with home cuff I spent a total of 40-54 minutes (exact time 42 mins) on the date of service in preparation, delivery, and documentation of the care provided to Fabby Cerrato excluding any time spent in the performance of separately billed services. Follow Up: Return if symptoms worsen or fail to improve and as scheduled., for BP Check in 2 Weeks.| For: BP Check in 2 Weeks documented in this encounter Nursing Notes * Nighat Freeman LPN - 02/22/2024 3:21 PM EDT Patient presents today for a hospital follow up. She said that her bp has been slightly elevated but she thinks it may be due to all of the health stuff going on with her lately. documented in this encounter Plan of Treatment Upcoming Encounters Date Type Department Care Team (Late st Contact Info) Description 02/26/2024 3:20 PM EDT Office Visit Pulmonary Medicine, [facility] [address] [facility] [place] [address] Caden Melara, DO [address] [facility] [place] [address] 03/07/2024 8:00 AM EDT Nurse Only Ancillary Emre Mancilla [place] [address] [facility] [place] [address] Nurse, Int Med [address] [facility] [place], [place] [address] 05/30/2024 10:00 AM EDT Office Visit General Internal Medicine [facility] Charo [place] [address] [facility] [place] [address] Usama Block MD [address] [facility] [place] [address] Scheduled Orders Name Type Priority Associated Diagnoses Orde r Schedule COMPREHENSIVE METABOLIC PANEL Lab Routine Decreased hemoglobin Expected: 02/22/2024 (Approximate), Expires: 02/21/2025 CBC WITH WBC DIFFERENTIAL Lab Routine Decreased hemoglobin Expected: 02/22/2024 (Approximate), Expires: 02/21/2025 CRP (INFLAMMATORY MARKER) Lab Routine Abnormal CT of the chest Expected: 02/22/2024 (Approximate), Expires: 02/21/2025 Scheduled Referrals Name Type Priority Associated Diagnoses Orde r Schedule PULMONARY REFERRAL OP Referral Within 3 days (urgent) Abnormal CT of the chest Lung infiltrate Ordered: 02/22/2024 Health Maintenance Due Date Last Done Comments HPV/Co-Test 2008 Cervical Cancer Screening 05/22/2022 Pap Smear 05/22/2022 05/22/2019, 01/2016, 07/10/2014, Additional history exists COVID-19 Vaccine [...] as of this encounter Visit Diagnoses Diagnosis Hospital discharge follow-up- Primary Other follow-up examination Abnormal CT of the chest Nonspecific (abnormal) findings on radiological and other examination of other intrathoracic organs Lung infiltrate Other nonspecific abnormal finding of lung field Atypical chest pain Other chest pain Decreased hemoglobin Anemia, unspecified Elevated blood pressure, situational Elevated blood pressure reading without diagnosis of hypertension documented in this encounter Care Teams Greeting Card Editor Relationship Specialty Start Date End Date Usama Block MD [address] [place] [address] PCP - General Internal Medicine 06/08/22 documented as of this encounter
--- NOTE | 2024-03-02 06:01 | Electrocardiogram Report ---
Test Reason : Blood Pressure : / mmHG Vent. Rate : 120 BPM Atrial Rate : 120 BPM P-R Int : 136 ms QRS Dur : 084 ms QT Int : 284 ms P-R-T Axes : 046 044 -08 degrees QTc Int : 401 ms Sinus tachycardia Nonspecific T wave abnormality Abnormal ECG When compared with ECG of 17-FEB-2024 06:37, Vent. rate has increased BY 45 BPM Confirmed by Valdemar Houser ([id number]) on 03/02/2024 6:00:38 AM Referred By: Usama Block Confirmed By:Walt Houser
[2024-03-02] MEDS: PANTOprazole 40 MG TAB PO SCH ×2 (06:23→20:21)
[2024-03-02] MEDS: COSYNTROPIN 250 MCG in SYRINGE 4 ML IV ONE (08:19)
[2024-03-02 08:34] LABS: Hematocrit (blood only) 33.3 % (37.0-47.0); Hemoglobin 10.5 g/dl (12.0-16.0); Mean Corpuscular Hemoglobin 25.9 pg (25.0-34.0); Mean Corpuscular Hgb Conc 31.5 g/dL (32.0-36.0); Mean Corpuscular Volume 82.2 fL (80.0-100.0); Mean Platelet Volume 9.3 fL (9.4-12.4); Platelet Count 384 K/uL (130-400); RDW Coefficient of Variation 13.7 % (11.5-14.5); RDW Standard Deviation 41.1 fL (36.4-46.3); Red Blood Count 4.05 M/uL (4.20-5.40); White Blood Count 14.23 K/ul (4.8-10.8)
[2024-03-02] MEDS: DULoxetine HCL 30 MG CAP PO SCH (09:10)
[2024-03-02] MEDS: LORATADINE 10 MG TAB PO SCH (09:10)
[2024-03-02 09:22] LABS: Albumin Globulin Ratio 1.1 (0.9-2); Albumin Level 3.6 gm/dl (3.4-5.0); BUN Creatinine Ratio 21.8 (10-20); Bilirubin,Total 0.3 mg/dl (0.2-1.0); Calcium 9.1 mg/dl (8.6-10.3); Creatinine Clr Calc Pharmacy 178.5 ml/min; Est GFR (African American) 131.3 ml/min; Est GFR (Non-African American) 113.3 ml/min; Globulin 3.3 gm/dl (2.5-4.0); Total Protein 6.9 gm/dl (6.0-8.3)
[2024-03-02] MEDS: ADVANCED PROBIOTIC 625 MG CAPSULE PO SCH (09:25)
--- NOTE | 2024-03-02 10:29 | Cardiology Consultation ---
Date of Consultation March 02, 2024 Assessment & Plan (1) Shortness of breath: (2) Rhinovirus infection: (3) Acute pericardial effusion: (4) Pleural effusion: (5) Chest pain: (6) Acute hypoxemic respiratory failure: (7) Obesity, morbid, BMI 40.0-49.9: (8) Psoriatic arthritis: Plan 03/02/24: -Symptoms sound consistent with Pericarditis. Will treat with Colchicine x 3 months. High dose NSAIDs x2 weeks with PPI. -Start Colchicine 0.6 mg BID x 3 months. -Start Ibuprofen 800 mg TID x 1 week. After decrease to 600 mg TID 1 week. Once pain is controlled taper off NSAIDs. -Start Prilosec 40 mg BID while taking high dose NSAIDs for gastrointestinal protection. -ESR/CRP completed today. They are significantly elevated. -Avoid strenuous physical activities until symptom resolution and normalization of biomarkers. -Limited echocardiogram to be completed in 1 week or at least prior to discharge to reassess the size of her pericardial effusion. -Patient's symptoms returned despite d/c of Tremfya. This medication can increase her risk of infection, especially URIs. Do not be alarmed to please return to the WBC elevated. She tested positive for Rhinovirus. -Echo cardiogram reviewed with patient. There is a small-moderate sized pericardial infusion, which has increased when compared to prior echocardiogram completed on 02/17/24. No evidence of tamponade. -Symptoms improved s/p L thoracentesis. Pleural fluid does not show any growth to date. -Will need outpatient Cardiology follow up as well. Case discussed with Dr. Disla I spent a total of 50 minutes on the date of service in preparation, delivery, and documentation of the care provided to this patient, excluding any time spent in the performance of separately billed services. MARIBEL Burden Department of Cardiology, [facility] This chart was completed in part utilizing Speech Voice Recognition Software. Grammatical errors, random word insertions, pronoun errors, and incomplete sentences are an occasional consequence of this system due to software limitations, ambient noise, and hardware issues. Any formal questions or concerns about the content, text, or information contained within the body of this dictation should be directly addressed to the provider for clarification. Supervising Physician Co-Signing Physician Notes 43 year old with history of psoriatic arthritis was on tremfya presented with chest pain and sob . pleuritic chest pain ESR and CR has increased from prior admission, CT with moderate pericardial effusion , and pleural effusion s/p thoracocentesis. echo with small effusion no tamponade findings suggestive acute inflammatory pericarditis etiology likely autoimmune , viral etiology also possible differential. Acute inflammatory pericarditis treatment is with anti-inflammatory medications high-dose nonsteroidal anti-inflammatory drugs and colchicine. High-dose nonsteroidal anti-inflammatory drugs will start with ibuprofen 800 mg 3 times daily and taper down in 4 weeks discussed with patient about risk of gastritis GI ,bleed with high-dose ibuprofen she should avoid other NSAids. Avoid steroid should take PPIs for few months. If pain subsides can taper down quicker. Colchicine for 3 months I have reviewed the advanced practitioner's documentation on the date of service referenced in note, and I agree with, and take responsibility for the plan of care. I spent a total of [] minutes coordinating, documenting, and providing care for this patient excluding time spent in the performance of separately billed services or time spent by another provider. History of Present Illness Reason for Consultation: Increased pericardial effusion, pericarditis Requesting Physician: Jerrell Pandey MD Attending Physician: Dr. Disla History of Present Illness Fabby Cerrato is a 43 year old woman with past medical history of psoriatic arthritis diagnosed in 2019, GERD, obesity, pseudo-tumor cerebri, and pre- diabetes. Patient admitted to [facility] 12/21-12/23 with hypoxic respiratory failure. Reported sudden onset shortness of breath. Treated for pneumonia. Patient admitted to [facility] 02/15-02/16 after having chest discomfort with concerns of pericardial effusion on CT scan. At that time it was felt that the CT over estimated the pericardial effusion. Echocardiogram completed on 02/16 did not demonstrate any evidence of pericardial effusion. No further cardiac workup recommended at that time. [place] to be more related to her pneumonia and costochondritis from coughing. Presented to [facility] on 03/01/24 with increased shortness of breath over the last week. Patient states she had chest discomfort described as pressure accompanied by shortness of breath and dizziness. No radiation of symptoms. Chest pain worse with lying flat and coughing/deep breaths. Patient reports that she did stop taking Tremfya for her psoriatic arthritis as it was a possibility that this was causing her hospitalizations. Has only been taking Cymbalta. Imaging revealed increase in size of moderate left pleural effusion and increase in size of pericardial effusion. Patient underwent a diagnostic left thoracentesis on 03/01 to evaluate etiology. Patient feels that her breathing has improved since thoracentesis, but is still maintained on 2LNC. Does not require supplemental oxygen at home. Patient tested positive for Rhinovirus. Lives at home with her her 2 children. 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 Denies any known ill contacts, fevers, or chills. 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 At that time she did use [employer]. Did not wear a mask or gloves when mixing the solution. Reports a family history of primarily breast and ovarian cancer. No family history of heart disease or SCD. Allergies Allergy/AdvReac Type Severity Reaction Status Date / Time Sulfa (Sulfonamide Allergy Unknown Rash Verified 03/01/24 13:23 Antibiotics) Home Medications Medication Instructions Recorded Confirmed Type guselkumab 100 mg/mL subcutaneous 100 mg subcut .COMPLEX #1 mL 01/03/24 03/01/24 Rx syringe (Josiane) betamethasone dipropionate 0.05 % 1 applic topical DAILY PRN flaring 02/16/24 03/01/24 History lotion duloxetine 30 mg capsule,delayed 30 mg PO DAILY 02/16/24 03/01/24 History release (Cymbalta) Probiotic 1 cap PO DAILY 03/01/24 03/01/24 History amoxicillin 875 mg-potassium 1 tab PO BID 03/01/24 03/01/24 History clavulanate 125 mg tablet azithromycin 250 mg tablet See Rx Instructions .Route .COMPLEX 03/01/24 03/01/24 History benzonatate 100 mg capsule 100 mg PO TID PRN Cough 03/01/24 03/01/24 History loratadine 10 mg tablet 10 mg PO DAILY 03/01/24 03/01/24 History omeprazole 20 mg capsule,delayed 20 mg PO DAILYBB 03/01/24 03/01/24 History release Patient History Medical History Depression History of COVID-19 10/2021- no hosp, resolved Psoriatic arthritis Obesity, morbid, BMI 40.0-49.9 on ozempic weekly Pseudotumor cerebri monitored Fatty liver Surgical History S/P cholecystectomy S/P tubal ligation History of section X 2 History of wisdom tooth extraction Family History Grandfather (Paternal) Colorectal cancer, Onset Age: 63 Mother Breast cancer Grandmother (Maternal) Breast cancer Aunt Breast cancer multiple maternal aunts Denies family history of Ovarian cancer Uterine cancer Social History Smoking Status: Never smoker Tobacco Type: Cigarettes Second Hand Exposure: Yes ( A CHILD); Do You Dip or Chew Tobacco: No; Hx Alcohol Use: Yes Alcohol type: hard liquor Hx Substance Use: No Preferred Language: Bel[place]an Communication Ability: Effective Visual Impairment: No Limitations Straddle Bug Required: No Beliefs That Will Affect Care: None Current Living Situation: Family Current Living Situation Comment: daughter and son Feels Safe at Home: Yes Assistive Devices: None Review of Systems Review of Systems: All systems reviewed & are unremarkable except as noted in HPI & below Physical Exam Constitutional: WD/WN, vitals as above no acute distress Respiratory: normal respiratory effort; no respiratory distress Auscultation: + diminished lung sounds and + crackles Cardiovascular: RRR, no murmur, no edema Rate/Rhythm: regular rate and regular rhythm Heart Sounds: normal S1 and normal S2; no click, no gallop, no murmur and no cardiac rub Vessels: dorsalis pedis pulses present and radial pulses present; no JVD Extremities: normal capillary refill; no edema Musculoskeletal: no cyanosis or clubbing, extremities motor strength 5/5 Neurologic: PERRL, EOMI, accommodation nl, no face palsy, no dysarthria Psychiatric: A+Ox3, euthymic affect Results & Data Vital Signs (Past 12 Hours) Vital Signs Temp Pulse Pulse Resp BP Pulse Ox O2 Del Method 03/02/24 08:00 84 03/02/24 08:00 Room Air 03/02/24 07:40 36.7 C 67 18 112/66 92 Nasal Cannula 03/02/24 03:37 36.4 C L 69 16 102/59 L 95 Nasal Cannula 03/02/24 00:20 74 O2 Flow Rate 03/02/24 08:00 03/02/24 08:00 03/02/24 07:40 03/02/24 03:37 2 03/02/24 00:20 Laboratory Results Cardiac Enzymes 03/02/24 Range/Units 08:11 AST 12 L (13-39) U/L Coagulation 03/01/24 Range/Units 09:56 PT 10.3 (9.0-12.0) Seconds CBC 03/02/24 Range/Units 08:11 WBC 14.23 H (4.8-10.8) K/ul RBC 4.05 L (4.20-5.40) M/uL Hgb 10.5 L (12.0-16.0) g/dl Hct 33.3 L (37.0-47.0) % Plt Count 384 (130-400) K/uL Comprehensive Metabolic Panel 03/02/24 Range/Units 08:11 Sodium 138 (136-145) mmol/L Potassium 4.0 (3.5-5.1) mmol/L Chloride 106 (98-107) mmol/L Carbon Dioxide 26 (21-32) mmol/L BUN 12 (6-23) mg/dl Creatinine 0.55 L (0.6-1.2) mg/dl Glucose 150 H (70-99(Fasting)) mg/dl Calcium 9.1 (8.6-10.3) mg/dl AST 12 L (13-39) U/L ALT 20 (7-52) U/L Alkaline Phosphatase 87 (34-104) U/L Total Protein 6.9 (6.0-8.3) gm/dl Albumin 3.6 (3.4-5.0) gm/dl Intake and Output 03/01/24 03/02/24 03/02/24 22:59 06:59 14:59 Intake Total 100 / 1850 600 / 1850 Output Total 700 / 2700 900 / 2700 Balance -600 / -850 -300 / -850 Intake: IV 100 / 1350 100 / 1350 Doxycycline Hyclate 100 mg In 100 / 200 100 / 200 Dextrose 5% Mini-B 100 ml @ 50 mls/hr IV Q[facility] Rx#:[id number] Oral 500 / 500 Output: Urine 700 / 2700 900 / 2700 Other: Weight 133.4 kg Weight Measurement Method Standing Scale Diagnostic Findings Telemetry Reviewed 03/02/24: NSR 80-90s. EKG 03/01/24 ST 120 bpm Echo 03/01/24 @ [facility] Ejection fraction equals 60-65% There is mild concentric left ventricular hypertrophy. The right ventricle is normal in size and function. The left atrial size is normal. Right atrial size is normal. There is no significant valvular disease. A small to moderate size circu mferential pericardial effusion is present greatest in the right lateral area but less than 1 cm in thickness. No evidence of tamponade or hemodynamic effect. In comparison to prior study of 02/17/2024 effusion is better visualized and slightly greater in size would recommend close interval echocardiogram gram follow-up. CTA Chest 03/01/24 1. No pulmonary emboli identified. 2. Increase in size of a moderate pericardial effusion. Mild pericardial thickening and minimal enhancement raises the possibility of pericarditis. 3. Increase in size of a moderate left pleural effusion. Associated left lower lobe opacity favors atelectasis. Pneumonia is considered less likely. 4. Slightly enlarged mediastinal lymph nodes which are likely reactive. Echo 02/17/24 @ [facility] Left ventricular ejection fraction equals 55 to 60%. Nondilated cardiac chambers. No significant valvular pathology. No significant pericardial effusion appreciated. CTA Chest 02/16/24 IMPRESSION: 1. No pulmonary embolism. 2. Bilateral atelectasis left greater than right. 3. Small left pleural effusion. 4. Small pericardial effusion. (5) Chest pain Chest pain type: unspecified Qualified Code(s): R07.9 - Chest pain, unspecified
[2024-03-02 12:31] LABS: C Reactive Protein 14.19 mg/dl (0-0.5)
[2024-03-02] MEDS: IBUPROFEN 800 MG TAB PO SCH (13:58)
[2024-03-02] MEDS: COLCHICINE 0.6 MG TAB PO SCH (13:59)
--- NOTE | 2024-03-02 15:29 | Hospitalist Progress Note ---
Date of Service March 02, 2024 Assessment & Plan (1) Pleural effusion: (2) Pneumonia: (3) Obesity, morbid, BMI 40.0-49.9: (4) Psoriatic arthritis: Plan 43 y/o female with PMH of psoriatic arthritis on Cymbalta [Tremfya recently discontinued], pseudotumor cerebri, prediabetes, obesity on Ozempic and past tobacco abuse presented to the ED 03/01 with complaint of fatigability, tiredness, shortness of breath and inability to carry out simple tasks without becoming winded; however her SpO2 remained normal while taking at home. She has had two inpatient hospitalizations this year; 12/21-12/23 for hypoxic respiratory failure and 02/15-02/16 with SOB/atypical chest pain. Persistent pulmonary infiltrates have been identified. ACS was ruled out and was thought to have costochondritis related to PNA. Pulmonary has evaluated the patient as an outpatient for persistent pleural effu sions that are suspected to be related to immunotherapy for psoriatic arthritis. Patient follows with Dr. Bennett rheumatology last appointment 11/16/2023. Patient takes Cymbalta, reports being discontinued on Tremfya. Pleural effusion Concern for pneumonia URTI with rhinovirus Patient presenting with shortness of breath and inability to carry out simple tasks. At presentation, WBC elevated, procalcitonin and lactate WNL, VBG WNL, hCG test negative, TSH WNL, renal function and LFT WNL, UA WNL, enterovirus positive. MRSA screen negative. Admitting CXR with moderate left pleural effusion with associated left basilar airspace opacity. Admitting CTA chest with no PE, increase in size of moderate pericardial effusion and concern for pericarditis [mild pericardial thickening]. Increase in size of moderate left pleural effusion noted. Associated left lower lobe opacity noted. Pulmonology on board, status post left thoracentesis, 1 L fluid taken out 03/01. Pleural fluid studies suggestive of exudative effusion. Follow-up 03/01 blood and pleural fluid culture Patient started on antibiotic with Rocephin and doxycycline 03/01, continue 5 to 7 days course. Continue to provide supportive management for rhinovirus URTI. Patient reports improving cough and reports improving shortness of breath. Continue with as needed nebs. Patient to follow-up with pulmonology closely upon discharge. Likely Viral pericarditis: Patient with history of rheumatological disease and presenting with viral URTI. Admitting CTA chest with increasing size of moderate pericardial effusion and concerning for pericarditis. Echo with EF of 60 to 65%, moderate sized pericardial effusion noted, no evidence of tamponade or hemodynamic effect. Troponin WNL, admitting EKG with sinus tach. ESR and CRP elevated. Cardiology consult, colchicine x 3 months and high-dose NSS into 2 weeks along with PPI. Repeat echo in about 1 week or prior to discharge. Follow-up with cardiology in 1 to 2 weeks time of discharge. Other chronic medical conditions: Continue with/resume home meds as and when able Psoriatic arthritis: Diagnosed 2019, follows Dr. Bennett. Currently on Cymbalta, Tremfya has been discontinued. Cord stim test pending. Pseudotumor cerebri: Normotensive, chronic, stable. Obesity: Takes Ozempic at home. Has lost 30 pounds since starting Ozempic 06/2023 GERD: Continue home PPI. Disposition: PCP: Dr. Block CODE STATUS: Full code VTE prophylaxis: Lovenox SQ Admission and Anticipated Discharge Date Admission Date: March 01, 2024 Subjective Patient was seen and examined at bedside. Patient was ambulating in the room, on room air, NAD. Patient reports improving shortness of breath, reports improving cough, reports eating okay and moving bowels okay, denies any new acute event overnight. Patient reports feeling better. Patient denies any chest pain. Physical Exam Physical Exam: GENERAL: Alert and oriented x3. NAD, on RA. Obese Class III. HEENT: No pallor, no icterus. Pupils equal, round and reactive to light. Oral mucosa moist. NECK: No JVD, no neck masses. HEART: S1 and S2 heard. Regular rate and rhythm. No murmur, no gallop. RESPIRATORY SYSTEM: Normal AP diameter. No accessory muscle use. No wheezing, no crackles. ABDOMEN: Soft, bowel sounds present, nontender, no distention. CENTRAL NERVOUS SYSTEM: No facial droop. Speech is clear. Obeys simple commands. Moves extremities. EXTREMITIES: No edema, no erythema seen. Results & Data Results & Data Vital Signs (Past 12 Hours) Vital Signs Temp Pulse Pulse Resp BP Pulse Ox O2 Del Method 03/02/24 15:19 36.6 C 71 18 112/75 93 Room Air 03/02/24 10:46 36.5 C 72 18 119/70 91 Nasal Cannula 03/02/24 08:00 84 03/02/24 08:00 Room Air 03/02/24 07:40 36.7 C 67 18 112/66 92 Nasal Cannula 03/02/24 03:37 36.4 C L 69 16 102/59 L 95 Nasal Cannula O2 Flow Rate 03/02/24 15:19 03/02/24 10:46 03/02/24 08:00 03/02/24 08:00 03/02/24 07:40 03/02/24 03:37 2 (2) Pneumonia Laterality: left Lung location: lower lobe of lung Pneumonia type: due to unspecified organism Qualified Code(s): J18.9 - Pneumonia, unspecified organism
--- NOTE | 2024-03-02 15:50 | Pulmonology Progress Note ---
Date of Service March 02, 2024 Assessment & Plan (1) Pleural effusion: Plan Impression: 43-year-old female with serositis including pericardial effusion and pleural effusion in a patient with a history of psoriatic arthritis. Pleural effusion is an uncommon manifestation of psoriatic arthritis but can be seen in rare cases. Psoriatic arthritis is more commonly known to cause interstitial lung disease and pulmonary nodules which the patient does not have. Recommendations: 1. Pleural effusion: Left pleural fluid drained and appears to be an exudate. Cytology pending. Cultures pending as well. Possible serositis. 2. Patient is currently being treated for pneumonia. She does have atelectasis/infiltrate in the lung although it is unclear if this is compressive atelectasis. Will follow cultures. Antibiotics to be directed by the primary service. 3. Serositis: With pericardial effusion and pleural effusion, would recommend evaluation for etiology of serositis. Cardiology following as well. Patient can likely be discharged home tomorrow and follow-up with her primary counseling case manager, Dr. Hicks. Admission and Anticipated Discharge Date Admission Date: March 01, 2024 Subjective Patient feels less short of breath today. She had a near syncopal event during her thoracentesis, but has since recovered. She denies any chest pain. She does note some mild discomfort around the site of the thoracentesis. Review of Systems Review of Systems: All systems reviewed & are unremarkable except as noted in HPI & below Physical Exam Constitutional: WD/WN, vitals as above Neck: trachea midline, no thyromegaly Respiratory: no respiratory distress, no labored breathing, no cough and not tachypneic Auscultation: + diminished lung sounds Decreased breath sounds on the left lung base Cardiovascular: RRR, no murmur, no edema Gastrointestinal (Abdomen): normal bowel sounds, soft, nontender, no hepatosplenomegaly Musculoskeletal: Extremities: extremities normal to inspection Skin: no rashes, warm and dry Neurologic: Nonfocal exam Lymphatic: no cervical lymphadenopathy Results & Data Results & Data Vital Signs (Past 12 Hours) Vital Signs Temp Pulse Pulse Resp BP Pulse Ox O2 Del Method 03/02/24 15:19 36.6 C 71 18 112/75 93 Room Air 03/02/24 10:46 36.5 C 72 18 119/70 91 Nasal Cannula 03/02/24 08:00 84 03/02/24 08:00 Room Air 03/02/24 07:40 36.7 C 67 18 112/66 92 Nasal Cannula PG Care Time/CCT Total # of Minutes Spent Total Time Spent with Patient: Total time spent is greater than 50% in coordination of care (as documented) at patient's floor/unit and/or counseling patient: Coding Level of Care Code 27222 SUB INP/OBS CARE 2/35MIN Diagnoses Pleural effusion J90
[2024-03-02] MEDS: cefTRIAXone SODIUM 2,000 MG in DEXTROSE 5 % MINI-B 50 ML IV SCH (16:29)
[2024-03-03 07:58] LABS: Hematocrit (blood only) 32.4 % (37.0-47.0); Hemoglobin 10.4 g/dl (12.0-16.0); Mean Corpuscular Hemoglobin 26.6 pg (25.0-34.0); Mean Corpuscular Hgb Conc 32.1 g/dL (32.0-36.0); Mean Corpuscular Volume 82.9 fL (80.0-100.0); Mean Platelet Volume 9.3 fL (9.4-12.4); Platelet Count 363 K/uL (130-400); RDW Coefficient of Variation 14.2 % (11.5-14.5); RDW Standard Deviation 42.5 fL (36.4-46.3); Red Blood Count 3.91 M/uL (4.20-5.40); White Blood Count 8.14 K/ul (4.8-10.8)
[2024-03-03 08:16] LABS: BUN Creatinine Ratio 27.9 (10-20); Calcium 8.8 mg/dl (8.6-10.3); Creatinine Clr Calc Pharmacy 159.7 ml/min; Est GFR (African American) 126.9 ml/min; Est GFR (Non-African American) 109.5 ml/min; Magnesium 1.9 mg/dl (1.7-2.4); Phosphorus 3.1 mg/dl (2.5-4.9); Potassium 3.8 mmol/L (3.5-5.1)
--- NOTE | 2024-03-03 10:02 | Cardiology Progress Note ---
Date of Service March 03, 2024 Assessment & Plan (1) Shortness of breath: (2) Rhinovirus infection: (3) Acute pericardial effusion: (4) Pleural effusion: (5) Chest pain: (6) Acute hypoxemic respiratory failure: (7) Obesity, morbid, BMI 40.0-49.9: (8) Psoriatic arthritis: Plan 03/03/24: -Symptoms/imaging suggestive of Pericarditis. Likely etiology is viral/autoimmune. She is s/p thoracentesis. Pleural fluid does not show any growth to date. -Echo noted to have a small-moderate sized pericardial infusion, which has increased when compared to prior echocardiogram completed on 02/17/24. No evidence of tamponade. -Will treat with Colchicine x 3 months. High dose NSAIDs x2 weeks with PPI. -Start Colchicine 0.6 mg BID x 3 months. -Start Ibuprofen 800 mg TID x 1 week. After decrease to 600 mg TID 1 week. Once pain is controlled taper off NSAIDs. -Start Prilosec 40 mg BID while taking high dose NSAIDs for gastrointestinal protection. -ESR/CRP significantly elevated when compared to previous admission. -Avoid strenuous physical activities until symptom resolution and normalization of biomarkers. -Patient's symptoms returned despite d/c of Tremfya. This medication can increase her risk of infection, especially URIs. -Limited echocardiogram to be completed in 1 week as an outpatient. Order [facility] in [facility]. -Stable from a cardiac standpoint for discharge. Case discussed with Dr. Disla I spent a total of 30 minutes on the date of service in preparation, delivery, and documentation of the care provided to this patient, excluding any time spent in the performance of separately billed services. MARIBEL Burden Department of Cardiology, [facility] This chart was completed in part utilizing Speech Voice Recognition Software. Grammatical errors, random word insertions, pronoun errors, and incomplete sentences are an occasional consequence of this system due to software limitations, ambient noise, and hardware issues. Any formal questions or concerns about the content, text, or information contained within the body of this dictation should be directly addressed to the provider for clarification. Admission and Anticipated Discharge Date Admission Date: March 01, 2024 Supervising Physician Co-Signing Physician Notes 43 year old with history of psoriatic arthritis was on tremfya for about one year, recently stopped presented to ED with pleuritic chest pain and sob, Rhino virus positive . CT scan 03/01/2024 showed moderate pleural effusion and left pleural effusion which have increased when compared prior CT scan earlier this month 02/16/2024 showed small left pleural effusion and small pericardial effusion . seen by pulmonary underwent thoracocentesis- exudative Acute pericarditis with pericardial effusion : ESR and CR has increased from prior admission, CT with moderate pericardial effusion , echo 03/01 with small effusion no tamponade etiology differentials autoimmune serositis or in view of rhinoviral infection possible viral etiology she will need to follow up with rheumatology for further work up pericardial effusion with pericarditis to prevent future recurrence high dose NSAIDS and colchicine is recommended colchicine 0.6 twice daily for 3 months High dose NSAIDs help but are associated with significant GI side effectsa and need renal function monitoring. on ibuprofen 800 TID pt states pain has significantly improved so we can taper off quicker second week Ibuprofen 600 bid and than ibuprofen 400 bId , if any symptoms of GI upset , abdominal pain or blood in stools syop Ibuprofen follow up labs in 1 -2 weeks renal function follow up echo in one week to reassess pericardial effusion size cardiology follow up I have reviewed the advanced practitioner's documentation on the date of service referenced in note, and I agree with, and take responsibility for the plan of care. I spent a total of [20] minutes coordinating, documenting, and providing care for this patient excluding time spent in the performance of separately billed services or time spent by another provider. Subjective Patient is feeling well. Noticed a huge improvement in symptoms. No longer requiring supplemental oxygen. Review of Systems Review of Systems: All systems reviewed & are unremarkable except as noted in HPI & below Physical Exam Constitutional: WD/WN, vitals as above no acute distress Respiratory: normal respiratory effort; no respiratory distress Auscultation: + diminished lung sounds; no crackles Cardiovascular: RRR, no murmur, no edema Rate/Rhythm: regular rate and regular rhythm Heart Sounds: normal S1 and normal S2; no click, no gallop, no murmur and no cardiac rub Vessels: dorsalis pedis pulses present and radial pulses present; no JVD Extremities: normal capillary refill; no edema Musculoskeletal: no cyanosis or clubbing, extremities motor strength 5/5 Neurologic: PERRL, EOMI, accommodation nl, no face palsy, no dysarthria Psychiatric: A+Ox3, euthymic affect Results & Data Vital Signs (Past 12 Hours) Vital Signs Temp Pulse Pulse Resp BP Pulse Ox O2 Del Method 03/03/24 07:40 80 03/03/24 07:40 Nasal Cannula 03/03/24 07:04 36.5 C 81 17 125/85 92 Room Air 03/03/24 02:54 36.6 C 73 16 106/70 93 Room Air 03/02/24 23:30 67 03/02/24 22:51 36.5 C 69 21 114/62 91 Room Air O2 Flow Rate 03/03/24 07:40 03/03/24 07:40 2 03/03/24 07:04 03/03/24 02:54 03/02/24 23:30 03/02/24 22:51 Laboratory Results CBC 03/03/24 Range/Units 07:31 WBC 8.14 (4.8-10.8) K/ul RBC 3.91 L (4.20-5.40) M/uL Hgb 10.4 L (12.0-16.0) g/dl Hct 32.4 L (37.0-47.0) % Plt Count 363 (130-400) K/uL Comprehensive Metabolic Panel 03/03/24 Range/Units 07:31 Sodium 139 (136-145) mmol/L Potassium 3.8 (3.5-5.1) mmol/L Chloride 105 (98-107) mmol/L Carbon Dioxide 27 (21-32) mmol/L BUN 17 (6-23) mg/dl Creatinine 0.61 (0.6-1.2) mg/dl Glucose 132 H (70-99(Fasting)) mg/dl Calcium 8.8 (8.6-10.3) mg/dl Intake and Output 03/02/24 03/03/24 03/03/24 22:59 06:59 14:59 Intake Total 390 / 610 220 / 610 Output Total 1300 / 1300 Balance -910 / -690 220 / -690 Intake: IV 150 / 250 100 / 250 Doxycycline Hyclate 100 mg In 100 / 200 100 / 200 Dextrose 5% Mini-B 100 ml @ 50 mls/hr IV Q12H [facility] Rx#:[id number] cefTRIAXone SODIUM 2,000 mg In 50 / 50 Dextrose 5 % Mini-B 50 ml @ 100 mls/hr IV Q24H [facility] Rx#: [id number] Oral 240 / 360 120 / 360 Output: Urine 1300 / 1300 Other: Weight 131.6 kg Weight Measurement Method Built in [facility] Diagnostic Findings Diagnostic Findings Telemetry Reviewed 03/03/24: NSR 70-80s EKG 03/01/24 ST 120 bpm Echo 03/01/24 @ [facility] Ejection fraction equals 60-65% There is mild concentric left ventricular hypertrophy. The right ventricle is normal in size and function. The left atrial size is normal. Right atrial size is normal. There is no significant valvular disease. A small to moderate size circumferential pericardial effusion is present greatest in the right lateral area but less than 1 cm in thickness. No evidence of tamponade or hemodynamic effect. In comparison to prior study of 02/17/2024 effusion is better visualized and slightly greater in size would recommend close interval echocardiogram gram follow-up. CTA Chest 03/01/24 1. No pulmonary emboli identified. 2. Increase in size of a moderate pericardial effusion. Mild pericardial thickening and minimal enhancement raises the possibility of pericarditis. 3. Increase in size of a moderate left pleural effusion. Associated left lower lobe opacity favors atelectasis. Pneumonia is considered less likely. 4. Slightly enlarged mediastinal lymph nodes which are likely reactive. Echo 02/17/24 @ [facility] Left ventricular ejection fraction equals 55 to 60%. Nondilated cardiac chambers. No significant valvular pathology. No significant pericardial effusion appreciated. CTA Chest 02/16/24 IMPRESSION: 1. No pulmonary embolism. 2. Bilateral atelectasis left greater than right. 3. Small left pleural effusion. 4. Small pericardial effusion (5) Chest pain Chest pain type: unspecified Qualified Code(s): R07.9 - Chest pain, unspecified
--- NOTE | 2024-03-03 10:37 | Pulmonology Progress Note ---
Date of Service March 03, 2024 Assessment & Plan (1) Pleural effusion: Plan Impression: 43-year-old female with serositis including pericardial effusion and pleural effusion in a patient with a history of psoriatic arthritis. Pleural effusion is an uncommon manifestation of psoriatic arthritis but can be seen in rare cases. Psoriatic arthritis is more commonly known to cause interstitial lung disease and pulmonary nodules which the patient does not have. Recommendations: 1. Pleural effusion: Left pleural fluid drained and appears to be an exudate. Cytology pending. Cultures pending as well. Possible serositis. 2. Patient is currently being treated for pneumonia. She does have atelectasis/infiltrate in the lung although it is unclear if this is compressive atelectasis. Will follow cultures. Antibiotics to be directed by the primary service. 3. Serositis: With pericardial effusion and pleural effusion, would recommend evaluation for etiology of serositis. Cardiology following as well. Patient can likely be discharged home today and follow-up with her primary parlor maid, Dr. Hicks. Inpatient pulmonary service will sign off. Thank you for the consult. Please call questions Admission and Anticipated Discharge Date Admission Date: March 01, 2024 Subjective Feeling well off of oxygen. Denies any new complaints like shortness of breath or chest pain today. Review of Systems Review of Systems: All systems reviewed & are unremarkable except as noted in HPI & below Physical Exam Constitutional: WD/WN, vitals as above Neck: trachea midline, no thyromegaly Respiratory: no respiratory distress, no labored breathing, no cough and not tachypneic Auscultation: + diminished lung sounds Cardiovascular: RRR, no murmur, no edema Gastrointestinal (Abdomen): normal bowel sounds, soft, nontender, no hepatos plenomegaly Musculoskeletal: Extremities: extremities normal to inspection Skin: no rashes, warm and dry Lymphatic: no cervical lymphadenopathy Results & Data Results & Data Vital Signs (Past 12 Hours) Vital Signs Temp Pulse Pulse Resp BP Pulse Ox O2 Del Method 03/03/24 07:40 80 03/03/24 07:40 Nasal Cannula 03/03/24 07:04 36.5 C 81 17 125/85 92 Room Air 03/03/24 02:54 36.6 C 73 16 106/70 93 Room Air 03/02/24 23:30 67 03/02/24 22:51 36.5 C 69 21 114/62 91 Room Air O2 Flow Rate 03/03/24 07:40 03/03/24 07:40 2 03/03/24 07:04 03/03/24 02:54 03/02/24 23:30 03/02/24 22:51 PG Care Time/CCT Total # of Minutes Spent Total Time Spent with Patient: Total time spent is greater than 50% in coordination of care (as documented) at patient's floor/unit and/or counseling patient: Coding Level of Care Code 09389 SUB INP/OBS CARE 12/07MIN Diagnoses Pleural effusion J90
--- NOTE | 2024-03-03 12:31 | Discharge Summary ---
Date of Service March 03, 2024 Admission HPI Per Admitting Provider Ms. Cerrato is a complex 43 yaer old female who presents to the ED with SOB. She has had two inpatient hospitalizations this year; 12/21-12/23 for hypoxic respiratory failure and 02/15-02/16 with SOB/atypical chest pain. Persistent pulmonary infiltrates have been identified. ACS was ruled out and was thought to have costochondritis related to PNA. Initially on arrival she was tachycardic in the 120s and was given 1 L NS be bringing her down to 106. She remains on room air with SpO2 saturations 94%. She was given Lasix 20 mg IV once along with Solu-Medrol and a DuoNeb treatment. Additional past medical history includes psoriatic arthritis, history of pseudo tumor cerebri, persistent pleural effusions, obesity, and depression. Today, mild leukocytosis 11.64, lactate and procalcitonin negative, troponin negative, VBG compensated; positive for entero and rhinovirus. Chest x-ray reveals small to moderate left pleural effusion with increased airspace opacity in the left lower lobe. Chest CTA does not indicate PE but mild pericardial thickening continues to be noticed. Cardiology has evaluated for questionable pericarditis previously at the beginning of February when the echocardiogram was done without abnormalities noted. Pulmonary has evaluated the patient and's an outpatient for persistent pleural effusions that are suspected to be related to immunotherapy for psoriatic arthritis. Patient follows with Dr. Bennett rheumatology last appointment 11/16/2023. Patient takes Tremfya and Cymbalta. There has been discussion of her medications possibly being related to her longstanding symptoms and they discussed possibly changing to methotrexate or another NSAID. Patient denies headache, dizziness, visual or auditory changes, chest pain, palpitation, abdominal pain or tenderness, urinary or bowel changes, recent falls or trauma. Patient will be admitted for further evaluation and management of worsening shortness of breath with persistent pleural effusions and questionable pericarditis, along with enterorhinovirus supportive treatment with flutter valve and ISB. Possible persistent infiltrates without infectious symptoms which may be likely related to autoimmune disease. Blood cultures were obtained in the ED along with MRSA screen and started on Rocephin plus Doxy along with DuoNebs and IV steroids. Admission Exam Per Admitting Provider Neuro: AAOx4, PERRLA, no aphagia, memory changes, CNII-XII grossly intact HEENT: head normocephalic, moist mucus membranes CV: S1/S2, (-) M/G/R, (-) edema, cap refill < 3 seconds Resp: Lungs CTA in all robert. On RA GI: Abdomen S/NT/ND, Ax4 bowel sounds, (-) CVA tenderness Musculoskeletal: 5/5 B/L UE strength, 5/5 B/L LE strength. No gait disturbance Skin: (-) rashes , (-) erythema. Psych: euthymic mood Principal Diagnosis Pleural effusion Possible pneumonia URTI with rhinovirus Likely viral pericarditis Discharge Exam GENERAL: Alert and oriented x3. NAD, on RA. Obese Class III. HEENT: No pallor, no icterus. Pupils equal, round and reactive to light. Oral mucosa moist. NECK: No JVD, no neck masses. HEART: S1 and S2 heard. Regular rate and rhythm. No murmur, no gallop. RESPIRATORY SYSTEM: Normal AP diameter. No accessory muscle use. No wheezing, no crackles. ABDOMEN: Soft, bowel sounds present, nontender, no distention. CENTRAL NERVOUS SYSTEM: No facial droop. Speech is clear. Obeys simple commands. Moves extremities. EXTREMITIES: No edema, no erythema seen. Discharge Data Allergies Allergy/AdvReac Type Severity Reaction Status Date / Time Sulfa (Sulfonamide Allergy Unknown Rash Verified 03/01/24 13:23 Antibiotics) Consultations 03/01/24 13:43 ED Decision to Admit Stat 03/01/24 14:51 Consult Pulmonology Routine 03/02/24 08:33 Consult Cardiology Routine Ordered Studies 03/01/24 10:34 CT angio chest PE protocol Stat Hospital Course (1) Pleural effusion: (2) Pneumonia: (3) Obesity, morbid, BMI 40.0-49.9: (4) Psoriatic arthritis: Plan 43 y/o female with PMH of psoriatic arthritis on Cymbalta [Tremfya recently discontinued], pseudotumor cerebri, prediabetes, obesity on Ozempic and past tobacco abuse presented to the ED 03/01 with complaint of fatigability, tiredness, shortness of breath and inability to carry out simple tasks without becoming winded; however her SpO2 remained normal while taking at home. She has had two inpatient hospitalizations this year; 12/21-12/23 for hypoxic respiratory failure and 02/15-02/16 with SOB/atypical chest pain. Persistent pulmonary infiltrates have been identified. ACS was ruled out and was thought to have costochondritis related to PNA. Pulmonary has evaluated the patient as an outpatient for persistent pleural effusions that are suspected to be related to immunotherapy for psoriatic arthritis. Patient follows with Dr. Bennett rheumatology last appointment 11/16/2023. Patient takes Cymbalta, reports being discontinued on Tremfya -- was mistakenly documented that she was discontinued on Tremfya. She still takes Tremfya. She was managed for the following: Pleural effusion Concern for pneumonia URTI with rhinovirus Patient presenting with shortness of breath and inability to carry out simple tasks. At presentation, WBC elevated, procalcitonin and lactate WNL, VBG WNL, hCG test negative, TSH WNL, renal function and LFT WNL, UA WNL, enterovirus positive. MRSA screen negative. Admitting CXR with moderate left pleural effusion with associated left basilar airspace opacity. Admitting CTA chest with no PE, increase in size of moderate pericardial effusion and concern for pericarditis [mild pericardial thickening]. Increase in size of moderate left pleural effusion noted. Associated left lower lobe opacity noted. Pulmonology on board, status post left thoracentesis, 1 L fluid taken out 03/01. Pleural fluid studies suggestive of exudative effusion. Follow-up 03/01 blood and pleural fluid culture, pt to f/u w/ PCP office after discharge. Patient started on antibiotic with Rocephin and doxycycline 03/01, continue 5 to 7 days course. to PO atb on dc. Continue with supportive management for rhinovirus URTI. Patient reports improving cough and reports improving shortness of breath. Patient to follow-up with pulmonology closely upon discharge. Likely Viral pericarditis: Patient with history of rheumatological disease and presenting with viral URTI. Admitting CTA chest with increasing size of moderate pericardial effusion and concerning for pericarditis. Echo with EF of 60 to 65%, moderate sized pericardial effusion noted, no evidence of tamponade or hemodynamic effect. Troponin WNL, admitting EKG with sinus tach. ESR and CRP elevated. Cardiology consult, colchicine x 3 months and high-dose NSAIDs to be tapered over 1 month, pt to closely f/u with pcp for tapering of the ibuprofen dose. Protonix bid while on ibuprofen. Repeat echo in about 1 week upon discharge. Follow-up with cardiology in 1 to 2 weeks time of discharge. Other chronic medical conditions: Continue with/resume home meds as and when able Psoriatic arthritis: Diagnosed 2019, follows Dr. Bennett. Currently on Cymbalta, Tremfya has been discontinued. Pseudotumor cerebri: Normotensive, chronic, stable. Obesity: Takes Ozempic at home. Has lost 30 pounds since starting Ozempic 06/2023 GERD: Continue home PPI. Skewed corticotropin stimulation test: Patient has low baseline cortisol but very appropriate response to corticotropin. Patient had gotten methylprednisolone 125 mg the day prior. This could be the reason she had low baseline cortisol. But still free cortisol and ACTH are pending which patient is to follow-up with her PCP office in a week time upon discharge. Electrolytes are WNL, vitals are stable, no need to repeat corticotropin stimulation test unless ACTH and free cortisol are abnormal. Such was discussed with endocrinology on-call and no need to repeat corticotropin stimulation test/no need for endocrinology follow-up unless new issue arises. Patient to follow-up with PCP for the final results of the free cortisol and ACTH. Regarding concern for polyserositis, case was discussed with patient's outpatie nt rheumatology Dr. Bennett. Since patient's kidney functions are good, patient is symptomatically better, no skin rash, so no need for further inpatient workup. Plan is to have her follow-up with rheumatology within a week time upon discharge. Disposition: PCP: Dr. Block CODE STATUS: Full code VTE prophylaxis: Lovenox SQ Follow-up with your primary care physician within a week time and likely you will need labs CBC/CMP/magnesium/phosphorus. For your pleural effusion, you underwent thoracentesis. Continue to follow-up with your pulmonology, preferably within 1 to 2 weeks time of discharge. Follow-up on the final results of your pleural fluid studies and culture and cytology with your PCP office or pulmonology office. For possible pneumonia, you were started on antibiotic, complete the course as prescribed. For your likely viral pericarditis, cardiology evaluated you. You are to do following (start Date 03/02/24): -Colchicine 0.6 mg BID x 3 months. -Ibuprofen 800 mg TID x 1 week. After that, decrease to 600 mg TID 1 week. Once pain is controlled taper off NSAIDs. You will have to coordinate with your PCP for eval/tapering of this dose. -Protonix 40 mg BID while taking high dose NSAIDs for gastrointestinal protection. -Avoid strenuous physical activities until symptom resolution and normalization of biomarkers. Follow-up closely with your PCP office for managing and further prescription of the above medication. You will be discharged on 1 month worth of colchicine and protonix and 21 days worth of ibuprofen, further prescription to come from your PCP office after ongoing evaluation. You will need repeat ESR and CRP test in a week time, and repeat echocardiogram of the heart in a week time. Coordinate with your PCP office or cardiology office to set up the test. For viral upper respiratory tract infection, continue with rest and hydration. If you have increasing cough/productive cough/ chest pain/shortness of breath, reach out to your PCP office or emergency immediately. As discussed at the bedside, I had discussion with your OP rheumatology today morning. You are to follow-up with rheumatology within a week time upon discharge. As a follow-up of discussion at bedside, your skewed cortisol response was likely due to methylprednisolone dose used the day prior. But still there are free cortisol and ACTH level are pending, follow-up on the final results of those tests when you visit your PCP office in a week time upon discharge. Please make sure that you are able to get your medications today by calling your pharmacy before you leave the hospital so that your treatment continuity is not broken. Home Health Attestation I certify that this patient is under my care and that I, or a physicians web assistant working with me, had a face to-face encounter that meets the home health [id number] encounter requirements with this patient. The encounter with the patient was in whole, or in part, for the following medical condition, which is the primary reason for home health care (list medical condition): I certify that, based on my findings, the following services are medically necessary home health services: My clinical findings support the need for the above services because: Further, I certify that my clinical findings support that this patient is homebound (i.e. absences from home require considerable and taxing effort and are for medical reasons or [employer] or infrequently or of short duration when for other reasons) because: Certification for Home Health Services: Based on the above findings, I certify that this patient is confined to the home and needs intermittent halfway care, physical therapy and/or speech therapy or continues to need occupational therapy. The patient is under my care, and I have initiated the establishment of the plan of care. This patient will be followed by a physician who will periodically review the plan of care. Total Time Total Time Spent Total Time Spent (In Minutes): 45 Discharge Plan Discharge Items Patient Disposition: Home - Self-Care Reason For Visit: SOB Discharge Diagnosis: Pleural effusion Possible pneumonia URTI with rhinovirus Likely viral pericarditis Activity: Resume your previous activity Non-emergency contact: Primary Care Provider Call non-emergency contact if: you have any medication questions, your symptoms worsen and your temperature is above 101.5 Follow-up/Referrals: Usama Block MD [Primary Care Provider] - Diet: Heart Healthy Diet Texture: Easy to Chew Addtl Attending Provider Instructions: Follow-up with your primary care physician within a week time and likely you will need labs CBC/CMP/magnesium/phosphorus. For your pleural effusion, you underwent thoracentesis. Continue to follow-up with your pulmonology, preferably within 1 to 2 weeks time of discharge. Follow- up on the final results of your pleural fluid studies and culture and cytology with your PCP office or pulmonology office. For possible pneumonia, you were started on antibiotic, complete the course as prescribed. For your likely viral pericarditis, cardiology evaluated you. You are to do following (start Date 03/02/24): -Colchicine 0.6 mg BID x 3 months. -Ibuprofen 800 mg TID x 1 week. After that, decrease to 600 mg TID 1 week. Once pain is controlled taper off NSAIDs. You will have to coordinate with your PCP for eval/tapering of this dose. -Protonix 40 mg BID while taking high dose NSAIDs for gastrointestinal protection. -Avoid strenuous physical activities until symptom resolution and normalization of biomarkers. Follow-up closely with your PCP office for managing and further prescription of the above medication. You will be discharged on 1 month worth of colchicine and protonix and 21 days worth of ibuprofen, further prescription to come from your PCP office after ongoing evaluation. You will need repeat ESR and CRP test in a week time, and repeat echocardiogram of the heart in a week time. Coordinate with your PCP office or cardiology office to set up the test. For viral upper respiratory tract infection, continue with rest and hydration. If you have increasing cough/productive cough/ chest pain/shortness of breath, reach out to your PCP office or emergency immediately. As discussed at the bedside, I had discussion with your OP rheumatology today morning. You are to follow-up with rheumatology within a week time upon discharge. As a follow-up of discussion at bedside, your skewed cortisol response was likely due to methylprednisolone dose used the day prior. But still there are free cortisol and ACTH level are pending, follow-up on the final results of those tests when you visit your PCP office in a week time upon discharge. Please make sure that you are able to get your medications today by calling your pharmacy before you leave the hospital so that your treatment continuity is not broken. Pending Studies at Discharge: Yes Stand-Alone Forms: My [facility] [employer], Smoking Cessation Medications and DC Order Prescriptions: New ibuprofen 800 mg Tablet 800 mg PO TID 6 Days Qty: 18 0RF Rx Instructions: take daily for 6 days. End date 03/09/24. ibuprofen 600 mg tablet 600 mg PO UD Qty: 35 0RF Rx Instructions: Start date 03/09/24 -take 1 tablet 3 times a day for 7 days, then 1 tablet twice a day for 7-day, then follow with PCP office for further ibuprofen prescription pantoprazole 40 mg Tablet,Delayed Release (Dr/Ec) 40 mg PO BID Qty: 60 0RF Advanced Probiotic 625 mg (10 billion cell) Capsule 1 cap PO DAILY 7 Days Qty: 7 0RF colchicine [Colcrys] 0.6 mg Tablet 0.6 mg PO BID Qty: 60 0RF cefdinir 300 mg capsule 300 mg PO BID 5 Days Qty: 10 0RF doxycycline hyclate 100 mg tablet 100 mg PO BID 5 Days Qty: 10 0RF Continued Tremfya 100 mg/mL syringe 100 mg subcut .COMPLEX Qty: 1 2RF Rx Instructions: 100 mg subcutaneously every 8 weeks for maintenance as directed.; betamethasone dipropionate 0.05 % lotion 1 applic topical DAILY PRN (Reason: flaring) Rx Instructions: Apply to areas of the scalp daily for up to 2 weeks as needed for flaring. duloxetine [Cymbalta] 30 mg Capsule,Delayed Release(Dr/Ec) 30 mg PO DAILY benzonatate 100 mg capsule 100 mg PO TID PRN (Reason: Cough) loratadine 10 mg Tablet 10 mg PO DAILY Probiotic 1 cap PO DAILY Discontinued azithromycin 250 mg tablet See Rx Instructions .ROUTE .COMPLEX Rx Instructions: Follow package directions: Start Date 02/29/24 - End Date 03/05/24. As 03/01/24 pt hasn't started medication yet omeprazole 20 mg capsule,delayed release(DR/EC) 20 mg PO DAILYBB amoxicillin-pot clavulanate 875-125 mg tablet 1 tab PO BID Rx Instructions: Start Date 02/29/24 - End Date 03/07/24 Discharge Orders: Discharge Order (Routine); Ordered 03/03/24 Ordered By: Jerrell Pandey Admission Data Admit Date/Time: 03/01/24 13:55 Attending Provider: Jerrell Pandey Admit Provider: Suzy Germain Primary Care Provider: Usama Block Other Providers: Suzy Germain; Da Hicks; Joy Gonsalez; Eamon Castro; Rory Chaves; Lg Robison; Miguel Ángel Bennett; Gustavo Mullins; Estefania Licona; Kiara Maynard; Nicolasa Disla; Joy Pack; Rodo Drake; Joseph Enamorado; Stefania Malone; Jayda Gordon; Freda Fenton; Iman Padilla; Denilson Eid; Ada Aguilar
== END 2024-03-03 15:16 | disposition home or self-care (01) | DRG 186 ==
LOC: ED 09:23 → EDINP 13:55 → SUATTDRO 13:55 → 2S 21:40